=== PATIENT | male | born 1975 | race Asian ===

== ENCOUNTER 2021-04-22 10:57 | Emergency (ER) | payer OTHER, SELFPAY ==
[2021-04-22 11:34] VITALS: BP 119/88; PULSE 88; RESP 16; TEMP 36.9; O2SAT 98; BMI 26.6
--- NOTE | 2021-05-08 07:56 | ED.GENADULT ---
HPI - General Adult General Chief complaint: General Medical Stated complaint: rt ft injury, insect bite lt leg History of Present Illness HPI narrative: This patient left before being seen I never did any history of physical and did not see the patient Related Data Home Medications Medication Instructions Recorded Confirmed methadone 10 mg/mL oral 85 mg PO DAILY 05/02/21 05/02/21 concentrate (Methadone Intensol) Previous Rx's Medication Instructions Recorded amlodipine 5 mg tablet (Norvasc) 5 mg PO DAILY #30 tab 05/05/21 doxycycline hyclate 100 mg tablet 100 mg PO Q12H #20 tab 05/05/21 Allergies Allergy/AdvReac Type Severity Reaction Status Date / Time shellfish derived Allergy Unknown SWELLING Verified 05/01/21 15:19 [SHELLFISH DERIVED] PMFSH Past Medical History Medical History Depression Drug abuse OCD (obsessive compulsive disorder) Surgical History History of anterior cruciate ligament surgery Family History Family History Mother Drinking problem Other Mental health disorder Substance use disorder Social History Social History Household Members: None Housing: Other 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 Do you presently have visiting nurse or other home services: No Alcohol intake: never Patient Tobacco Use Status: Never used Tobacco e-Cigarette/Vaping Use: Never Used Second Hand Smoke Exposure: Yes Substance Use Type: Crack/Cocaine and Heroin service: No Current occupational status: employed Physical Exam Vital Signs: Vital Signs: Last Vital Signs Temp 98.5 F 04/22/21 11:34 Pulse 88 04/22/21 11:34 Resp 16 04/22/21 11:34 BP 119/88 04/22/21 11:34 Pulse Ox 98 04/22/21 11:34 Body Mass Index 26.6 Discharge Plan Discharge Patient Disposition: Left Without Being Seen Interventions: LWBS Worksheet Last Done: 04/22/21 13:06 Discharge Date/Time: 04/22/21 12:05
== END 2021-04-22 12:05 | disposition left against medical advice (07) ==
PROVIDERS: Emergency Provider Emergency Medicine; PCP Internal Medicine
DX: S99.921A Unspecified injury of right foot, initial encounter (principal); X58.XXXA Exposure to other specified factors, initial encounter; Y93.9 Activity, unspecified; Y92.9 Unspecified place or not applicable; Y99.9 Unspecified external cause status
CPT/HCPCS: 99281; 99283

== ENCOUNTER 2021-05-01 14:46 | Inpatient (IN) | payer OTHER, SELFPAY ==
--- NOTE | ~2021-05-01 | US_ITS ---
EXAMINATION: US VENOUS ULTRASOUND WITH DOPPLER LOWER EXTREMITY, BILATERAL CLINICAL INFORMATION: Leg pain COMPARISON: None TECHNIQUE: Ultrasound of the deep veins is performed from the hip to the calf with compression sonography and color and pulse Doppler assessment. Spectral analysis with color-flow imaging is performed. FINDINGS: RIGHT: There is normal venous compression and respiratory variation and augmented flow. The visualized common femoral vein, superficial femoral vein, profunda femoral vein, popliteal vein, and the trifurcation region shows no evidence of deep venous thrombosis. There is no significant popliteal fossa cyst. No popliteal artery aneurysm. LEFT: There is normal venous compression and respiratory variation and augmented flow. The visualized common femoral vein, superficial femoral vein, profunda femoral vein, popliteal vein, and the trifurcation region shows no evidence of deep venous thrombosis. There is no significant popliteal fossa cyst. No popliteal artery aneurysm. US/US venous duplex LE BI IMPRESSION: No acute DVT demonstrated in the bilateral lower extremities.
--- NOTE | ~2021-05-01 | XR_ITS ---
EXAMINATION: LEFT FOURTH DIGIT 3 VIEWS AND LEFT TIB-FIB 3 VIEWS CLINICAL INFORMATION: Pain. Trauma. COMPARISON: None TECHNIQUE: As above FINDINGS: Diffuse soft tissue swelling about the left fourth digit. No underlying soft tissue air or radiopaque foreign body. No bony lesions or dislocation. No deformity. No periosteal new bone formation. Diffuse echogenicity edema about the left tib-fib. No underlying bony lesion. Notable soft tissue swelling especially about the ankle. XR/XR finger LT min 2V IMPRESSION: No evidence for any radiopaque foreign body or osteomyelitis as above. Diffuse soft tissue swelling consistent with known infection.
--- NOTE | ~2021-05-01 | XR_ITS ---
EXAMINATION: LEFT FOURTH DIGIT 3 VIEWS AND LEFT TIB-FIB 3 VIEWS CLINICAL INFORMATION: Pain. Trauma. COMPARISON: None TECHNIQUE: As above FINDINGS: Diffuse soft tissue swelling about the left fourth digit. No underlying soft tissue air or radiopaque foreign body. No bony lesions or dislocation. No deformity. No periosteal new bone formation. Diffuse echogenicity edema about the left tib-fib. No underlying bony lesion. Notable soft tissue swelling especially about the ankle. XR/XR tibia fibula LT 2V IMPRESSION: No evidence for any radiopaque foreign body or osteomyelitis as above. Diffuse soft tissue swelling consistent with known infection.
--- NOTE | ~2021-05-01 | US_ITS ---
EXAMINATION: ULTRASOUND EVALUATION SOFT TISSUES OF THE LEFT MID AND UPPER HENNESSY CLINICAL INFORMATION: Left leg cellulitis COMPARISON: None TECHNIQUE: Targeted ultrasound examination left hennessy FINDINGS: There is edematous change seen within the subcutaneous tissue with prominent vascularity. No definite phlegmon or abscess is appreciated. US/US extremity nonvascular IMPRESSION: Edema and hypervascularity in area of wound without evidence of phlegmon or abscess.
[2021-05-01 15:20] VITALS: BP 133/75; PULSE 82; RESP 20; TEMP 37.4; O2SAT 98; BMI 26.6
--- NOTE | 2021-05-01 16:34 | ED.GENADULT ---
HPI - General Adult General Chief complaint: General Medical Stated complaint: inf finger & toe Time Seen by Provider: 05/01/21 16:34 Source: patient Mode of arrival: ambulatory Limitations: no limitations History of Present Illness HPI narrative: Patient came to the ER for 1 week of infection in left 3rd finger and left leg. Patient use IVDA not using it lately on methadone cyst that had a spider bite on the left leg and he was picking on it now for last 4 days has a wound on the left ring finger which is opened up and swollen no fever at home no chills patient has been vaccinated against COVID. Related Data Previous Rx's Medication Instructions Recorded sulfamethoxazole 800 1 tab PO Q12H 10 Days #20 tab 04/28/21 mg-trimethoprim 160 mg tablet (Bactrim DS) Allergies Allergy/AdvReac Type Severity Reaction Status Date / Time shellfish derived Allergy Unknown SWELLING Verified 05/01/21 15:19 [SHELLFISH DERIVED] Review of Systems Review of Systems: Yes all other systems are reviewed and are negative PMFSH Past Medical History Medical History Depression Drug abuse OCD (obsessive compulsive disorder) Surgical History History of anterior cruciate ligament surgery Family History Family History Mother Drinking problem Other Mental health disorder Substance use disorder Social History Social History Housing: House (with parents) Alcohol intake: never Patient Tobacco Use Status: Never used Tobacco e-Cigarette/Vaping Use: Never Used Second Hand Smoke Exposure: Yes Use of substances other than those prescribed or required for medical reasons: Yes Substance Use Type: Heroin and Opiates Advance Directives: No Advance Directives Information Provided: Yes service: No Current occupational status: employed Physical Exam Vital Signs: Vital Signs: Last Vital Signs Temp 101.5 F H 05/01/21 18:02 Pulse 78 05/01/21 18:02 Resp 16 05/01/21 18:02 BP 120/81 05/01/21 18:02 Pulse Ox 99 05/01/21 18:02 Body Mass Index 26.6 Appearance: Alert. Oriented X3. No acute distress. Eyes: PERRLA, No Nystagmus ENT: Pharynx normal. Oral Mucosa moist Neck: Normal inspection. Neck supple. CVS: Normal heart rate and rhythm. Pulses normal. Respiratory: No respiratory distress. Equal air entry bilateral, no wheezing/rales/rhonchi Abdomen: Soft and nontender. Bowel sounds are present, no mass palpable, Neuro: Oriented X 3. No motor deficit. No sensory deficit.No cerebellar signs , cranial nerves II-XII intact Extrem: Hand/finger images: 1. Left 3rd finger with swelling and deep ulcer was purulent base no palner tenderness no hyperesthesia neurovascular intact no signs of tenosynovitis Upper/lower leg/hip images: 1. Swelling erythema with black eschar no crepitus Medical Decision Making MDM Narrative Medical decision making narrative: Patient with infected wound left ring finger without any signs of tenosynovitis, also has infected wound with cellulitis left leg with the use of IV drugs. Will admit patient for cellulitis and infected wound IV antibiotic vancomycin Zosyn given Lab Data Lab results reviewed: Yes I reviewed the patient's lab results. Result diagrams: 05/01/21 17:17 05/01/21 17:36 Labs: Lab Results 05/01/21 05/01/21 05/01/21 Range/Units 17:17 17:17 17:30 WBC 8.8 (4.8-10.8) X10*3/uL RBC 4.68 (4.60-5.80) X10*6/uL Hgb 13.5 L (14.0-18.0) g/dl Hct 40.3 L (42-52) % MCV 86.1 (80-98) fL MCH 28.8 (27.0-33.0) pg MCHC 33.5 (31.0-36.0) g/dl RDW 12.6 (11.0-16.0) % Plt Count 321 (160-400) X10*3/uL MPV 9.4 (9.4-12.4) fL Immature Gran % (Auto) 0.2 (0.0-0.4) % Neut % (Auto) 78.7 H (45-73) % Lymph % (Auto) 9.9 L (20-40) % [place] % (Auto) 6.7 (2-11) % Eos % (Auto) 4.0 (0-4) % Baso % (Auto) 0.5 (0-2) % Lymph # (Auto) 0.9 L (1.2-4.9) X10*3/uL [place] # (Auto) 0.6 (0.1-1.2) X10*3/uL Eos # (Auto) 0.4 (0.0-0.4) X10*3/uL Baso # (Auto) 0.0 (0.0-0.2) X10*3/uL Abs Immat Gran (auto) 0.02 (0.00-0.03) X10*3/uL Absolute Neuts (auto) 7.0 (2.0-8.3) X10*3/uL Absolute Nucleated RBC 0.000 (0.0-0.012) X10*3/uL Nucleated RBC % (auto) 0.0 (0.0-0.2) /100WBC Sodium (135-145) mmol/L Potassium (3.3-5.1) mmol/L Chloride (96-108) mmol/L Carbon Dioxide (22-29) mmol/L Anion Gap (12-20) BUN (9-16) mg/dL Creatinine (0.5-1.4) mg/dL Estim Creat Clear Calc Estimated GFR Random Glucose (60-115) mg/dL Lactic Acid 1.5 (0.5-2.0) mmol/L Calcium (8.4-10.2) mg/dL Total Bilirubin (0.0-1.0) mg/dL Direct Bilirubin (0.0-0.5) mg/dL AST (5-37) U/L ALT (0-40) U/L Alkaline Phosphatase (39-117) U/L Total Protein (6.5-8.0) g/dL Albumin (3.5-5.0) g/dL Urine Color Urine Appearance Urine pH (5.0-8.0) Ur Specific [place] (1.005-1.025) Urine Protein (NEG-TRACE) MG/DL Urine Glucose (UA) (NEG) MG/DL Urine Ketones (NEG) MG/DL Urine Blood (NEG) Urine Nitrite (NEG) Ur Leukocyte Esterase (NEG) COVID-19 ([facility]) Negative (Negative) COVID-19 Clin Com See Note 05/01/21 05/01/21 Range/Units 17:36 19:59 WBC (4.8-10.8) X10*3/uL RBC (4.60-5.80) X10*6/uL Hgb (14.0-18.0) g/dl Hct (42-52) % MCV (80-98) fL MCH (27.0-33.0) pg MCHC (31.0-36.0) g/dl RDW (11.0-16.0) % Plt Count (160-400) X10*3/uL MPV (9.4-12.4) fL Immature Gran % (Auto) (0.0-0.4) % Neut % (Auto) (45-73) % Lymph % (Auto) (20-40) % [place] % (Auto) (2-11) % Eos % (Auto) (0-4) % Baso % (Auto) (0-2) % Lymph # (Auto) (1.2-4.9) X10*3/uL [place] # (Auto) (0.1-1.2) X10*3/uL Eos # (Auto) (0.0-0.4) X10*3/uL Baso # (Auto) (0.0-0.2) X10*3/uL Abs Immat Gran (auto) (0.00-0.03) X10*3/uL Absolute Neuts (auto) (2.0-8.3) X10*3/uL Absolute Nucleated RBC (0.0-0.012) X10*3/uL Nucleated RBC % (auto) (0.0-0.2) /100WBC Sodium 134 L (135-145) mmol/L Potassium 4.2 (3.3-5.1) mmol/L Chloride 103 (96-108) mmol/L Carbon Dioxide 24 (22-29) mmol/L Anion Gap 11 L (12-20) BUN 10 (9-16) mg/dL Creatinine 0.78 (0.5-1.4) mg/dL Estim Creat Clear Calc 118.3 Estimated GFR > 60 Random Glucose 83 (60-115) mg/dL Lactic Acid (0.5-2.0) mmol/L Calcium 8.3 L (8.4-10.2) mg/dL Total Bilirubin 0.6 (0.0-1.0) mg/dL Direct Bilirubin 0.3 (0.0-0.5) mg/dL AST 31 (5-37) U/L ALT 36 (0-40) U/L Alkaline Phosphatase 72 (39-117) U/L Total Protein 6.4 L (6.5-8.0) g/dL Albumin 3.6 (3.5-5.0) g/dL Urine Color YELLOW Urine Appearance CLEAR Urine pH 6.0 (5.0-8.0) Ur Specific [place] >= 1.030 H (1.005-1.025) Urine Protein TRACE (NEG-TRACE) MG/DL Urine Glucose (UA) NEG (NEG) MG/DL Urine Ketones NEG (NEG) MG/DL Urine Blood NEG (NEG) Urine Nitrite NEG (NEG) Ur Leukocyte Esterase NEG (NEG) COVID-19 ([facility]) (Negative) COVID-19 Clin Com Discharge Plan Discharge Clinical Impression: Cellulitis of left leg, Infected wound Patient Disposition: Admitted As Inpatient
[2021-05-01 17:23] LABS: MANUAL DIFF FLAG NO
[2021-05-01 17:33] LABS: Basophils Percent Auto 0.5 % (0-2); Eosinophils Absolute Auto 0.4 X10*3/uL (0.0-0.4); Hematocrit 40.3 % (42-52); Hemoglobin 13.5 g/dl (14.0-18.0); Imm Gran Abs Auto 0.02 X10*3/uL (0.00-0.03); Imm Gran Pct Auto 0.2 % (0.0-0.4); Lymphocytes Absolute Auto 0.9 X10*3/uL (1.2-4.9); Lymphocytes Percent Auto 9.9 % (20-40); Mean Corpuscular HGB Conc 33.5 g/dl (31.0-36.0); Mean Corpuscular Hemoglobin 28.8 pg (27.0-33.0); Mean Corpuscular Volume 86.1 fL (80-98); Mean Platelet Volume 9.4 fL (9.4-12.4); Monocytes Absolute Auto 0.6 X10*3/uL (0.1-1.2); Monocytes Percent Auto 6.7 % (2-11); Neutrophils Percent Auto 78.7 % (45-73); Platelet Count 321 X10*3/uL (160-400); Red Blood Count 4.68 X10*6/uL (4.60-5.80); Red Cell Distribution Width 12.6 % (11.0-16.0); White Blood Count 8.8 X10*3/uL (4.8-10.8)
[2021-05-01] MEDS: Piperacillin Sodium/Tazobactam 3.375 GM in 0.9 % Sodium Chloride 50 ML IV (17:41)
[2021-05-01] MEDS: 0.9 % Sodium Chloride 1,000 ML 999 ML IVCONT (17:41)
[2021-05-01 17:48] LABS: Lactic Acid 1.5 mmol/L (0.5-2.0)
[2021-05-01 17:50] LABS: COVID-19 Test Negative (Negative)
[2021-05-01] MEDS: vancomycin HCL 1,500 MG in 0.9 % Sodium Chloride 500 ML 333.33 MG IV (17:58)
[2021-05-01] MEDS: Acetaminophen 325 MG TABLET 650 MG PO (17:58)
[2021-05-01 18:02] VITALS: BP 120/81; PULSE 78; RESP 16; TEMP 38.6; O2SAT 99
[2021-05-01 18:33] LABS: Alkaline Phosphatase 72 U/L (39-117)
[2021-05-01 18:58] LABS: Alanine Aminotransferase 36 U/L (0-40); Albumin Level 3.6 g/dL (3.5-5.0); Anion Gap 11 (12-20); Aspartate Amino Transferase 31 U/L (5-37); Bilirubin Direct 0.3 mg/dL (0.0-0.5); Bilirubin Total 0.6 mg/dL (0.0-1.0); Blood Urea Nitrogen 10 mg/dL (9-16); Calcium 8.3 mg/dL (8.4-10.2); Carbon Dioxide 24 mmol/L (22-29); Chloride 103 mmol/L (96-108); Creatinine Clr Calc Pharmacy 118.3; Estimated Glomerular Filt Rate > 60; Glucose Random 83 mg/dL (60-115); Potassium 4.2 mmol/L (3.3-5.1); Sodium 134 mmol/L (135-145); Total Protein 6.4 g/dL (6.5-8.0)
[2021-05-01 20:06] LABS: Glucose Urine UA NEG (NEG); Leukocyte Esterase Urine NEG (NEG); Nitrite Urine NEG (NEG); Specific Gravity - Urine >= 1.030 (1.005-1.025); Urine Blood NEG (NEG); Urine Ketones NEG (NEG); Urine Protein TRACE MG/DL (NEG-TRACE)
[2021-05-01 20:10] LABS: Appearance Urine CLEAR; Color Urine YELLOW
[2021-05-01 21:00] VITALS: TEMP 36.8
--- NOTE | 2021-05-01 21:56 | P.HPHOSP_ITS ---
History of Present Illness Date of Service: 05/01/21 Chief Complaint: left leg pain 45-year-old male with a past medical history of IV drug abuse, anxiety presented to the hospital with a chief complaint of left 3rd finger pain redness and swelling as well as leg pain redness and swelling over the past few days. Denies any chest pain palpitations lightheadedness or dizziness. Denies any numbness tingling. Denies any cough or sputum production. Denies any urinary symptoms. Patient reports that he use IV heroin; did not remember using it in the like or the finger; reports question bug bite. Denies any numbness tingling or focal weakness. Review of all other systems is negative except mentioned above ER course: Per ER team patient noted to have left 3rd finger and left leg cellulitis; given IV vancomycin and Zosyn; less concern for tenosynovitis. Admitted for further management. [facility] Medical History Depression Drug abuse OCD (obsessive compulsive disorder) Family History Mother Drinking problem Other Mental health disorder Substance use disorder Surgical History History of anterior cruciate ligament surgery Social History Housing: House (with parents) Alcohol intake: never Patient Tobacco Use Status: Never used Tobacco e-Cigarette/Vaping Use: Never Used Second Hand Smoke Exposure: Yes Use of substances other than those prescribed or required for medical reasons: Yes Substance Use Type: Heroin and Opiates Advance Directives: No Advance Directives Information Provided: Yes service: No Current occupational status: employed Meds Allergies Allergy/AdvReac Type Severity Reaction Status Date / Time shellfish derived Allergy Unknown SWELLING Verified 05/01/21 15:19 [SHELLFISH DERIVED] Active Medications: Current Medications Generic Name Dose Route Start Last Admin Trade Name Freq PRN Reason Stop Dose Admin Clonidine HCl 0.1 mg 05/01/21 21:53 Clonidine Hcl 0.1 Mg Tablet PO BID PRN anxiety/restlessness Protocol Vancomycin HCl 1,000 mg/ 270 mls @ 270 mls/hr 05/01/21 22:00 Sodium Chloride IV Q12H [facility] Pharmacy Consult 1 each 05/01/21 16:49 Consult Rx Vancomycin Dosing MISCELLANE DAILY PRN Consult order Pharmacy Consult 1 each 05/01/21 21:52 Consult Rx Vancomycin Dosing MISCELLANE DAILY PRN Consult order Physical Exam Vital Signs and Narrative: Vital Signs: Last Vital Signs Temp 101.5 F H 05/01/21 18:02 Pulse 78 05/01/21 18:02 Resp 16 05/01/21 18:02 BP 120/81 05/01/21 18:02 Pulse Ox 99 05/01/21 18:02 Body Mass Index 26.6 Gen: Appears be in no acute distress HEENT: NCAT, Moist mucosa. Pulmonary: Vesicular breath sounds, fair air entry CVS: Normal S1-S2 Abdomen: BS+, Soft, Nontender Extremities: Warm well perfused; left hand her finger is warm tender and erythematous. Left leg medial side is warm tender is erythematous. No for from sent. Neuro: Alert and awake. Results Labs CBC and Chem 7: 05/01/21 17:17 05/01/21 17:36 Labs: Laboratory Results - last 24 hr 05/01/21 05/01/21 05/01/21 17:17 17:17 17:30 MCV 86.1 MCH 28.8 MCHC 33.5 RDW 12.6 Plt Count 321 MPV 9.4 Immature Gran % (Auto) 0.2 Neut % (Auto) 78.7 H Lymph % (Auto) 9.9 L [place] % (Auto) 6.7 Eos % (Auto) 4.0 Baso % (Auto) 0.5 Lymph # (Auto) 0.9 L [place] # (Auto) 0.6 Eos # (Auto) 0.4 Baso # (Auto) 0.0 Abs Immat Gran (auto) 0.02 Absolute Neuts (auto) 7.0 Absolute Nucleated RBC 0.000 Nucleated RBC % (auto) 0.0 Anion Gap Estim Creat Clear Calc Estimated GFR Random Glucose Lactic Acid 1.5 Calcium Total Bilirubin Direct Bilirubin AST ALT Alkaline Phosphatase Total Protein Albumin Urine Color Urine Appearance Urine pH Ur Specific [place] Urine Protein Urine Glucose (UA) Urine Ketones Urine Blood Urine Nitrite Ur Leukocyte Esterase COVID-19 ([facility]) Negative COVID-19 Clin Com See Note 05/01/21 05/01/21 17:36 19:59 MCV MCH MCHC RDW Plt Count MPV Immature Gran % (Auto) Neut % (Auto) Lymph % (Auto) [place] % (Auto) Eos % (Auto) Baso % (Auto) Lymph # (Auto) [place] # (Auto) Eos # (Auto) Baso # (Auto) Abs Immat Gran (auto) Absolute Neuts (auto) Absolute Nucleated RBC Nucleated RBC % (auto) Anion Gap 11 L Estim Creat Clear Calc 118.3 Estimated GFR > 60 Random Glucose 83 Lactic Acid Calcium 8.3 L Total Bilirubin 0.6 Direct Bilirubin 0.3 AST 31 ALT 36 Alkaline Phosphatase 72 Total Protein 6.4 L Albumin 3.6 Urine Color YELLOW Urine Appearance CLEAR Urine pH 6.0 Ur Specific [place] >= 1.030 H Urine Protein TRACE Urine Glucose (UA) NEG Urine Ketones NEG Urine Blood NEG Urine Nitrite NEG Ur Leukocyte Esterase NEG COVID-19 ([facility]) COVID-19 Clin Com Imaging Radiologist's Impressions: Impressions Finger X-Ray 05/01/21 16:50 IMPRESSION: No evidence for any radiopaque foreign body or osteomyelitis as above. Diffuse soft tissue swelling consistent with known infection. Tibia/Fibula X-Ray 05/01/21 16:50 IMPRESSION: No evidence for any radiopaque foreign body or osteomyelitis as above. Diffuse soft tissue swelling consistent with known infection. Assessment and Plan (1) Left leg swelling: Status: Acute 45-year-old male with a past medical history of IV drug abuse, anxiety, depression, OCD presented to the hospital with a chief complaint of left 3rd finger and left leg pain redness and swelling; concern for cellulitis. Admitted for further management. Left leg cellulitis/left hand 3rd finger cellulitis: Continue IV vancomycin. Id consult. Hand surgery. Ultrasound to rule out any blood clots as well as the abscess. Pain control History of opiate abuse: Addiction Medicine consult. COWS protocol. Clonidine p.r.n.. DVT prophylaxis: Subcu heparin Code status: Full code Quality Stroke Does the patient have a stroke diagnosis?: No VTE Prior VTE?: No VTE Risk Level:: Medical - moderate - high VTE Device Contraindication: Treatment Not Indicated VTE Drug Contraindication: N/A - Med Ordered
--- NOTE | 2021-05-01 22:59 | MHC.CM.PN ---
CM met with admitted patient, with bed pending. Pt lives in a 5th wheel on his mother's property. 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 Pt uses IV heroin; last used 04/30/21. Pt takes 85 mg of methadone daily. [employer] on [address]. Pt has NOT been vaccinated and does not wish to be vaccinated. HCP reviewed, completed and signed per protocol. Copies given. Uploaded into [employer] and [facility]. D/C plan is home without services. To continue methadone. Transportation home by family. CM to follow for d/c plans.
[2021-05-02] VITALS (10 sets, daily range): BP systolic 110–143; BP diastolic 57–70; PULSE 60–82; RESP 16–18; TEMP 36.3–37.5; O2SAT 94–99
--- NOTE | 2021-05-02 00:44 | PC.NURSE ---
per pt- 85 mg methadone Q day, receives from [facility]
[2021-05-02] MEDS: Dextrose 5 % and 0.45 % NaCl 1,000 ML 100 ML IVCONT ×2 (01:14→11:38)
[2021-05-02] MEDS: oxyCODONE HCl Immed Release 5 MG TABLET PO ×2 (01:14→08:07)
[2021-05-02] MEDS: Melatonin 3 MG TABLET 6 MG PO (01:14)
[2021-05-02] MEDS: cloNIDine HCL 0.1 MG TABLET PO (01:14)
[2021-05-02] MEDS: Heparin Sodium,Porcine 5,000 UNIT/ML VIAL 5000 UNIT SUBCUT ×2 (01:14→15:54)
[2021-05-02] MEDS: Acetaminophen 325 MG TABLET 650 MG PO (01:15)
[2021-05-02] MEDS: 0.9 % Sodium Chloride Flush 3 ML SYRINGE IVFLUSH (01:22)
[2021-05-02] MEDS: vancomycin HCL 1,250 MG in 0.9 % Sodium Chloride 250 ML 166.67 MG IV ×2 (05:36→17:15)
[2021-05-02 06:38] LABS: MANUAL DIFF FLAG NO
[2021-05-02 07:07] LABS: Basophils Percent Auto 0.5 % (0-2); Eosinophils Absolute Auto 0.4 X10*3/uL (0.0-0.4); Eosinophils Percent Auto 6.9 % (0-4); Hematocrit 33.6 % (42-52); Hemoglobin 11.3 g/dl (14.0-18.0); Imm Gran Abs Auto 0.02 X10*3/uL (0.00-0.03); Imm Gran Pct Auto 0.3 % (0.0-0.4); Lymphocytes Absolute Auto 1.2 X10*3/uL (1.2-4.9); Mean Corpuscular HGB Conc 33.6 g/dl (31.0-36.0); Mean Corpuscular Volume 86.4 fL (80-98); Mean Platelet Volume 9.7 fL (9.4-12.4); Monocytes Absolute Auto 0.6 X10*3/uL (0.1-1.2); Monocytes Percent Auto 9.8 % (2-11); Neutrophils Absolute Auto 3.9 X10*3/uL (2.0-8.3); Neutrophils Percent Auto 62.5 % (45-73); Platelet Count 244 X10*3/uL (160-400); Red Blood Count 3.89 X10*6/uL (4.60-5.80); Red Cell Distribution Width 12.7 % (11.0-16.0); White Blood Count 6.2 X10*3/uL (4.8-10.8)
[2021-05-02 08:25] LABS: Anion Gap 11 (12-20); Blood Urea Nitrogen 11 mg/dL (9-16); Calcium 8.1 mg/dL (8.4-10.2); Carbon Dioxide 25 mmol/L (22-29); Chloride 106 mmol/L (96-108); Creatinine Clr Calc Pharmacy 113.9; Estimated Glomerular Filt Rate > 60; Glucose Random 111 mg/dL (60-115); Potassium 3.9 mmol/L (3.3-5.1); Sodium 138 mmol/L (135-145)
--- NOTE | 2021-05-02 09:22 | PM.EVENT ---
Event Note Date of Service: 05/02/21 Event Note: 45 yo male with left ring finger wound the finger has some redness and swelling over the PIP with deroofed skinwith pus. recommend warm water soaks tid followed by dry dressing changes- will continue to follow
--- NOTE | 2021-05-02 09:23 | PM.CNOR ---
History of Present Illness HPI Consult date: 05/02/21 Chief complaint: Cellulitis Narrative: 45-year-old male with a past medical history of IV drug abuse, anxiety presented to the hospital with a chief complaint of left 3rd finger pain redness and swelling as well as leg pain redness and swelling over the past few days.? He denies injecting into these areas recently. States he thought he had a bug bite or a scratch that became irritated so he started picking at it. He has a tendency to pick at scabs and wounds. He was admitted to the medical service and started on iv abx and orthopedics was consulted for further recommendations . Review of Systems Review of Systems: Yes all other systems are reviewed and are negative PMFSH Past Medical History Medical History Depression Drug abuse OCD (obsessive compulsive disorder) Family History Family History Mother Drinking problem Other Mental health disorder Substance use disorder Surgical History Surgical History History of anterior cruciate ligament surgery Social History Social History Household Members: None Housing: Other 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 Do you presently have visiting nurse or other home services: No Alcohol intake: never Patient Tobacco Use Status: Never used Tobacco e-Cigarette/Vaping Use: Never Used Second Hand Smoke Exposure: Yes Use of substances other than those prescribed or required for medical reasons: Yes Substance Use Type: Crack/Cocaine and Heroin Substance Use Frequency: Weekly Last Used Substance: Days (ago) Last Used Substance Other:: cocaine Currently Displaying Signs/Symptoms of Drug Intoxication Withdrawal: No Have you been hit, kicked, punched, or otherwise hurt by someone within the past year? If so, by whom?: No Do you feel safe in your current relationship?: No Current Relationship Is there a partner from a previous relationship who is making you feel unsafe now?: No Are you made to feel afraid or neglected: No Advance Directives: No Advance Directives Information Provided: Yes Do you have thoughts of harming others: None Do you have a plan to hurt others: No Plan Recently lost weight without trying: No How much weight loss: Not applicable Eating poorly because of decreased appetite: Yes Nutrition screen score: 1 Nutrition Risks: No Nutritional Risk Poor oral hygiene: No service: No Current occupational status: employed Meds Allergies Allergy/AdvReac Type Severity Reaction Status Date / Time shellfish derived Allergy Unknown SWELLING Verified 05/01/21 15:19 [SHELLFISH DERIVED] Active Medications: Current Medications Generic Name Dose Route Start Last Admin Trade Name Freq PRN Reason Stop Dose Admin Acetaminophen 650 mg 05/01/21 21:55 05/02/21 01:15 Acetaminophen 325 Mg Tablet PO 650 mg Q6H PRN Administration Pain, Mild (Pain Scale 1-3) Clonidine HCl 0.1 mg 05/01/21 21:53 05/02/21 01:14 Clonidine Hcl 0.1 Mg Tablet PO 0.1 mg BID PRN Administration anxiety/restlessness Protocol Heparin Sodium (Porcine) 5,000 unit 05/02/21 09:00 Heparin Sodium,Porcine 5,000 Unit/Ml Vial SUBCUT Q8H JULIO Dextrose/Sodium Chloride 1,000 mls @ 100 mls/hr 05/01/21 22:00 05/02/21 07:53 D51/2ns IVCONT Not Given .Q10H JULIO Vancomycin HCl 1,250 mg/ 250 mls @ 166.667 mls/hr 05/02/21 06:00 05/02/21 07:06 Sodium Chloride IV Infused Q12H JULIO Infusion Melatonin 6 mg 05/01/21 21:55 05/02/21 01:14 Melatonin 3 Mg Tablet PO 6 mg BEDTIME PRN Administration Insomnia Oxycodone HCl 5 mg 05/01/21 21:55 05/02/21 08:07 Oxycodone Hcl Immed Release 5 Mg Tablet PO 5 mg Q6H PRN Administration Pain, Severe (Pain Scale 7-10) Pharmacy Consult 1 each 05/01/21 16:49 Consult Rx Vancomycin Dosing MISCELLANE DAILY PRN Consult order Pharmacy Consult 1 each 05/01/21 21:52 Consult Rx Vancomycin Dosing MISCELLANE DAILY PRN Consult order Sodium Chloride 3 ml 05/02/21 00:00 05/02/21 07:49 0.9 % Sodium Chloride Flush 3 Ml Syringe IVFLUSH Not Given QSHIFT [facility] Home Medications Medication Instructions Recorded Confirmed Last Taken Type methadone 10 mg/mL oral 85 mg PO DAILY 05/02/21 05/02/21 Unknown History concentrate (Methadone Intensol) Physical Exam Vital Signs: Vital Signs: Last Vital Signs Temp 98.4 F 05/02/21 07:32 Pulse 60 05/02/21 07:32 Resp 16 05/02/21 07:32 BP 110/59 L 05/02/21 07:32 Pulse Ox 98 05/02/21 07:32 Body Mass Index 26.6 Const: General: cooperative and no acute distress Orientation/consciousness: patient oriented x3 Resp: Effort & Inspection: normal respiratory effort and able to speak in complete sentences Cardio: Peripheral pulses: Peripheral pulses 2+ throughout Neuro: General: patient oriented x3 Extrem: Other: left ring finger open abscess with fibrotic tissue . No active drainage or purulance. minimal surrounding erythema with tenderness over the PIP Left lower ext redness with fluctulance. calf supple. Results Labs Result Diagrams: 05/03/21 04:39 05/03/21 04:39 Labs: Abnormal lab results 05/01/21 05/01/21 05/01/21 Range/Units 17:17 17:36 19:59 RBC (4.60-5.80) X10*6/uL Hgb 13.5 L (14.0-18.0) g/dl Hct 40.3 L (42-52) % Neut % (Auto) 78.7 H (45-73) % Lymph % (Auto) 9.9 L (20-40) % Eos % (Auto) (0-4) % Lymph # (Auto) 0.9 L (1.2-4.9) X10*3/uL Sodium 134 L (135-145) mmol/L Anion Gap 11 L (12-20) Calcium 8.3 L (8.4-10.2) mg/dL Total Protein 6.4 L (6.5-8.0) g/dL Ur Specific [place] >= 1.030 H (1.005-1.025) 05/02/21 05/02/21 Range/Units 06:21 06:21 RBC 3.89 L (4.60-5.80) X10*6/uL Hgb 11.3 L (14.0-18.0) g/dl Hct 33.6 L (42-52) % Neut % (Auto) (45-73) % Lymph % (Auto) (20-40) % Eos % (Auto) 6.9 H (0-4) % Lymph # (Auto) (1.2-4.9) X10*3/uL Sodium (135-145) mmol/L Anion Gap 11 L (12-20) Calcium 8.1 L (8.4-10.2) mg/dL Total Protein (6.5-8.0) g/dL Ur Specific [place] (1.005-1.025) H & H 05/01/21 05/02/21 Range/Units 17:17 06:21 Hgb 13.5 L 11.3 L (14.0-18.0) g/dl Hct 40.3 L 33.6 L (42-52) % All other labs normal. Assessment and Plan (1) Cellulitis of left leg: Status: Acute (2) Abscess of finger: Status: Acute 1.Left leg cellulitis and abscless, /left hand 3rd finger cellulitis:? -left finger warm water soaks tid -left leg warm compress -re-eval in 24 hours. Procedures Date of Service Date of Service: 05/02/21
--- NOTE | 2021-05-02 10:43 | MHC.RECOVRN ---
T/w spoke with pts RN, Marlin, who reports methadone dose has been verified and faxed to pharmacy. Diana Arredondo APRN, aware.
--- NOTE | 2021-05-02 12:22 | MHC.CLN ---
NUTRITION CONSULT NUTRITION CONSULT DUE TO CELLULITIS. PATIENT WITH CELLULITIS OF LEFT LEG AND LEFT HAND FINGER. NO PRESSURE AREAS. DIET=REGULAR. NO ADDITIONAL NUTRITION INTERVENTIONS.
--- NOTE | 2021-05-02 12:30 | HO.PM.IMPN ---
Subjective Subjective Date of Service: 05/02/21 Interval History: Leg cellulitis, and for left hand cellulitis. Review of Systems Patient is still having lot of pain in the leg and the and area, Also has erythema and swelling Physical Exam Vital Signs: Vital Signs: Last Vital Signs Temp 97.3 F 05/02/21 11:18 Pulse 61 05/02/21 11:18 Resp 16 05/02/21 11:18 BP 127/60 05/02/21 11:18 Pulse Ox 97 05/02/21 11:18 Body Mass Index 26.6 physical exam: Gen: no acute distress HEENT:? NCAT,? Moist mucosa. Pulmonary:? Vesicular breath sounds, fair air entry CVS:? Normal S1-S2 Abdomen: BS+, Soft, Nontender Extremities:? Warm well perfused; left hand her finger is warm tender and erythematous.? Left leg medial side is warm tender is erythematous.?no gross flacutation Neuro:? Alert and awake. Objective Data Active Medications Acetaminophen (Acetaminophen 325 Mg Tablet) 650 mg PO Q6H PRN PRN Reason: Pain, Mild (Pain Scale 1-3) Last Admin: 05/02/21 01:15 Dose: 650 mg Documented by: FERNANDA Clonidine HCl (Clonidine Hcl 0.1 Mg Tablet) 0.1 mg PO BID PRN; Protocol PRN Reason: anxiety/restlessness Last Admin: 05/02/21 01:14 Dose: 0.1 mg Documented by: FERNANDA Heparin Sodium (Porcine) (Heparin Sodium,Porcine 5,000 Unit/Ml Vial) 5,000 unit SUBCUT Q8H [facility] Last Admin: 05/02/21 11:12 Dose: Not Given Documented by: NEVAEH Non-Admin Reason: See Note Comments: possible procedure today Dextrose/Sodium Chloride (D51/2ns) 1,000 mls @ 100 mls/hr IVCONT .Q10H [facility] Last Admin: 05/02/21 11:38 Dose: 100 mls/hr Documented by: NEVAEH Vancomycin HCl 1,250 mg/ (Sodium Chloride) 250 mls @ 166.667 mls/hr IV Q12H [facility] Last Infusion: 05/02/21 07:06 Dose: 0 mls/hr Documented by: NEVAEH Melatonin (Melatonin 3 Mg Tablet) 6 mg PO BEDTIME PRN PRN Reason: Insomnia Last Admin: 05/02/21 01:14 Dose: 6 mg Documented by: FERNANDA Methadone HCl (Methadone Hcl 20 Mg/2 Ml Oral.Conc) 85 mg PO DAILY [facility] Oxycodone HCl (Oxycodone Hcl Immed Release 5 Mg Tablet) 5 mg PO Q6H PRN PRN Reason: Pain, Severe (Pain Scale 7-10) Last Admin: 05/02/21 08:07 Dose: 5 mg Documented by: NEVAEH Pharmacy Consult (Consult Rx Vancomycin Dosing) 1 each MISCELLANE DAILY PRN PRN Reason: Consult order Pharmacy Consult (Consult Rx Vancomycin Dosing) 1 each MISCELLANE DAILY PRN PRN Reason: Consult order Sodium Chloride (0.9 % Sodium Chloride Flush 3 Ml Syringe) 3 ml IVFLUSH QSHIFT [facility] Last Admin: 05/02/21 07:49 Dose: Not Given Documented by: NEVAEH Non-Admin Reason: IV Running Labs CBC & Chem 7: 05/02/21 06:21 05/02/21 06:21 Labs: Laboratory Results - last 24 hr 05/01/21 05/01/21 05/01/21 17:17 17:17 17:30 MCV 86.1 MCH 28.8 MCHC 33.5 RDW 12.6 Plt Count 321 MPV 9.4 Immature Gran % (Auto) 0.2 Neut % (Auto) 78.7 H Lymph % (Auto) 9.9 L [place] % (Auto) 6.7 Eos % (Auto) 4.0 Baso % (Auto) 0.5 Lymph # (Auto) 0.9 L [place] # (Auto) 0.6 Eos # (Auto) 0.4 Baso # (Auto) 0.0 Abs Immat Gran (auto) 0.02 Absolute Neuts (auto) 7.0 Absolute Nucleated RBC 0.000 Nucleated RBC % (auto) 0.0 Anion Gap Estim Creat Clear Calc Estimated GFR Random Glucose Lactic Acid 1.5 Calcium Magnesium Total Bilirubin Direct Bilirubin AST ALT Alkaline Phosphatase Total Protein Albumin Urine Color Urine Appearance Urine pH Ur Specific [place] Urine Protein Urine Glucose (UA) Urine Ketones Urine Blood Urine Nitrite Ur Leukocyte Esterase COVID-19 ([facility]) Negative COVID-19 Clin Com See Note 05/01/21 05/01/21 05/02/21 17:36 19:59 06:21 MCV 86.4 MCH 29.0 MCHC 33.6 RDW 12.7 Plt Count 244 MPV 9.7 Immature Gran % (Auto) 0.3 Neut % (Auto) 62.5 Lymph % (Auto) 20.0 [place] % (Auto) 9.8 Eos % (Auto) 6.9 H Baso % (Auto) 0.5 Lymph # (Auto) 1.2 [place] # (Auto) 0.6 Eos # (Auto) 0.4 Baso # (Auto) 0.0 Abs Immat Gran (auto) 0.02 Absolute Neuts (auto) 3.9 Absolute Nucleated RBC 0.000 Nucleated RBC % (auto) 0.0 Anion Gap 11 L Estim Creat Clear Calc 118.3 Estimated GFR > 60 Random Glucose 83 Lactic Acid Calcium 8.3 L Magnesium Total Bilirubin 0.6 Direct Bilirubin 0.3 AST 31 ALT 36 Alkaline Phosphatase 72 Total Protein 6.4 L Albumin 3.6 Urine Color YELLOW Urine Appearance CLEAR Urine pH 6.0 Ur Specific [place] >= 1.030 H Urine Protein TRACE Urine Glucose (UA) NEG Urine Ketones NEG Urine Blood NEG Urine Nitrite NEG Ur Leukocyte Esterase NEG COVID-19 ([facility]) COVID-19 Clin Com 05/02/21 06:21 MCV MCH MCHC RDW Plt Count MPV Immature Gran % (Auto) Neut % (Auto) Lymph % (Auto) [place] % (Auto) Eos % (Auto) Baso % (Auto) Lymph # (Auto) [place] # (Auto) Eos # (Auto) Baso # (Auto) Abs Immat Gran (auto) Absolute Neuts (auto) Absolute Nucleated RBC Nucleated RBC % (auto) Anion Gap 11 L Estim Creat Clear Calc 113.9 Estimated GFR > 60 Random Glucose 111 Lactic Acid Calcium 8.1 L Magnesium 2.0 Total Bilirubin Direct Bilirubin AST ALT Alkaline Phosphatase Total Protein Albumin Urine Color Urine Appearance Urine pH Ur Specific [place] Urine Protein Urine Glucose (UA) Urine Ketones Urine Blood Urine Nitrite Ur Leukocyte Esterase COVID-19 ([facility]) COVID-19 Clin Com Assessment and Plan (1) Cellulitis of left leg: Status: Acute Assessment and Plan: 45-year-old male with a past medical history of IV drug abuse, anxiety, depression, OCD presented to the hospital with a chief complaint of left 3rd finger and left leg pain redness and swelling; concern for cellulitis.? Admitted for further management. 1.Left leg cellulitis/left hand 3rd finger cellulitis:? Continue IV vancomycin.? Id consult and Hand surgery. Ultrasound to rule out any blood clots as well as the abscess. Pain control 2.History of opiate abuse:? Addiction Medicine consult.? COWS protocol.? Clonidine p.r.n.. added methadone back DVT prophylaxis:? Subcu heparin Quality Stroke Does the patient have a stroke diagnosis?: No VTE Prior VTE?: No VTE Risk Level:: Medical - moderate - high VTE Device Contraindication: Treatment Not Indicated VTE Drug Contraindication: N/A - Med Ordered
[2021-05-02] MEDS: methADONE HCl 20 MG/2 ML ORAL.CONC 85 MG PO (13:30)
--- NOTE | 2021-05-02 22:25 | P.CNID_ITS ---
History of Present Illness Data of Consult Service Date: 05/02/21 Requesting physician: Megan Mello Primary Care Provider: MD TIFFANY Colin Reason for consult: cellulitis He presents to hospital with left third finger erythema as well as left leg erythema and swelling. He has no fever or chills. 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 Do you presently have visiting nurse or other home services: No Alcohol intake: never Patient Tobacco Use Status: Never used Tobacco e-Cigarette/Vaping Use: Never Used Second Hand Smoke Exposure: Yes Substance Use Type: Crack/Cocaine and Heroin service: No Current occupational status: employed Meds Allergies Allergy/AdvReac Type Severity Reaction Status Date / Time shellfish derived Allergy Unknown SWELLING Verified 05/01/21 15:19 [SHELLFISH DERIVED] Active Medications: Current Medications Generic Name Dose Route Start Last Admin Trade Name Rudiq PRN Reason Stop Dose Admin Acetaminophen 650 mg 05/01/21 21:55 05/02/21 01:15 Acetaminophen 325 Mg Tablet PO 650 mg Q6H PRN Administration Pain, Mild (Pain Scale 1-3) Clonidine HCl 0.1 mg 05/01/21 21:53 05/02/21 01:14 Clonidine Hcl 0.1 Mg Tablet PO 0.1 mg BID PRN Administration anxiety/restlessness Protocol Heparin Sodium (Porcine) 5,000 unit 05/02/21 09:00 05/02/21 15:54 Heparin Sodium,Porcine 5,000 Unit/Ml Vial SUBCUT 5,000 unit Q8H [facility] Administration Dextrose/Sodium Chloride 1,000 mls @ 100 mls/hr 05/01/21 22:00 05/02/21 17:14 D51/2ns IVCONT Not Given .Q10H [facility] Vancomycin HCl 1,250 mg/ 250 mls @ 166.667 mls/hr 05/02/21 06:00 05/02/21 19:48 Sodium Chloride IV Infused Q12H [facility] Infusion Melatonin 6 mg 05/01/21 21:55 05/02/21 01:14 Melatonin 3 Mg Tablet PO 6 mg BEDTIME PRN Administration Insomnia Methadone HCl 85 mg 05/02/21 12:00 05/02/21 13:30 Methadone Hcl 20 Mg/2 Ml Oral.Conc PO 85 mg DAILY [facility] Administration Oxycodone HCl 5 mg 05/01/21 21:55 05/02/21 08:07 Oxycodone Hcl Immed Release 5 Mg Tablet PO 5 mg Q6H PRN Administration Pain, Severe (Pain Scale 7-10) Pharmacy Consult 1 each 05/01/21 16:49 Consult Rx Vancomycin Dosing MISCELLANE DAILY PRN Consult order Pharmacy Consult 1 each 05/01/21 21:52 Consult Rx Vancomycin Dosing MISCELLANE DAILY PRN Consult order Sodium Chloride 3 ml 05/02/21 00:00 05/02/21 15:50 0.9 % Sodium Chloride Flush 3 Ml Syringe IVFLUSH Not Given QSHIFT [facility] Home Medications Medication Instructions Recorded Confirmed Last Taken Type methadone 10 mg/mL oral 85 mg PO DAILY 05/02/21 05/02/21 Unknown History concentrate (Methadone Intensol) Physical Exam Vital Signs: Vital Signs: Last Vital Signs Temp 99.5 F 05/02/21 19:17 Pulse 82 05/02/21 19:17 Resp 18 05/02/21 19:17 BP 143/67 H 05/02/21 19:17 Pulse Ox 99 05/02/21 19:17 Body Mass Index 26.6 Const: General: cooperative HENMT: Head: Yes normal to inspection Mouth: Normal oral and palatal mucosa present Eyes: General: appearance normal, both eyes and all related structures Resp: Effort & Inspection: normal respiratory effort Cardio: Rate: regular rate Rhythm: regular rhythm GI: Palpation (GI): Soft to palpation and nontender Skin: General skin exam: no rashes or lesions noted Extrem: Other: left third finger erythema left lower leg erythema Results Labs CBC & Chem 7: 05/03/21 04:39 05/03/21 04:39 Labs: Short CBC 05/02/21 Range/Units 06:21 WBC 6.2 (4.8-10.8) X10*3/uL Hgb 11.3 L (14.0-18.0) g/dl Hct 33.6 L (42-52) % Plt Count 244 (160-400) X10*3/uL BMP 05/02/21 06:21 Sodium 138 Potassium 3.9 Chloride 106 Carbon Dioxide 25 BUN 11 Creatinine 0.81 Calcium 8.1 L Microbiology Microbiology Results: Microbiology 05/01/21 17:30 Blood - Venous Blood Culture - Preliminary No growth after 24 hours. 05/01/21 17:17 Blood - Venous Blood Culture - Preliminary No growth after 24 hours. Assessment and Plan (1) Cellulitis of left leg: Status: Acute He has possible MRSA Finger looks improved Leg looks slightly better he says (2) Infected wound: Status: Acute Vancomycin as above Await cultures Possible po Doxycycline as outpatient
[2021-05-03] VITALS (10 sets, daily range): BP systolic 123–151; BP diastolic 63–85; PULSE 59–77; RESP 15–18; TEMP 36.3–37.2; O2SAT 96–98
[2021-05-03] MEDS: Dextrose 5 % and 0.45 % NaCl 1,000 ML 100 ML IVCONT ×2 (01:18→13:09)
[2021-05-03] MEDS: Heparin Sodium,Porcine 5,000 UNIT/ML VIAL 5000 UNIT SUBCUT ×3 (01:19→16:48)
[2021-05-03 04:55] LABS: Hematocrit 35.7 % (42-52); Hemoglobin 11.7 g/dl (14.0-18.0); Mean Corpuscular HGB Conc 32.8 g/dl (31.0-36.0); Mean Corpuscular Hemoglobin 28.5 pg (27.0-33.0); Mean Corpuscular Volume 87.1 fL (80-98); Mean Platelet Volume 9.2 fL (9.4-12.4); Platelet Count 241 X10*3/uL (160-400); Red Cell Distribution Width 12.4 % (11.0-16.0)
[2021-05-03 05:11] LABS: Anion Gap 13 (12-20); Blood Urea Nitrogen 10 mg/dL (9-16); Calcium 8.3 mg/dL (8.4-10.2); Carbon Dioxide 24 mmol/L (22-29); Chloride 105 mmol/L (96-108); Creatinine Clr Calc Pharmacy 124.7; Estimated Glomerular Filt Rate > 60; Glucose Random 101 mg/dL (60-115); Potassium 4.1 mmol/L (3.3-5.1); Sodium 138 mmol/L (135-145)
[2021-05-03 05:16] LABS: Vancomycin Trough 8.7 mcg/mL (10.0-20.0)
[2021-05-03] MEDS: vancomycin HCL 1,500 MG in 0.9 % Sodium Chloride 500 ML 333.33 MG IV (06:43)
[2021-05-03] MEDS: methADONE HCl 20 MG/2 ML ORAL.CONC 85 MG PO (09:56)
--- NOTE | 2021-05-03 10:51 | PM.EVENT ---
Event Note Date of Service: 05/03/21 Event Note: Left ring finger with redness and pain over the PIP joint -patient removed the fibrous tissue -I packed with wet to dry dressing -dr garcía to do a bed side I&D later today.
[2021-05-03] MEDS: Lidocaine HCl 2% PF/Epi 1:200 20 ML VIAL SUBCUT (13:10)
--- NOTE | 2021-05-03 17:59 | P.PNIM_ITS ---
Subjective Subjective Date of Service: 05/03/21 Interval History: f/u on cellulitis of the leg, puss draining from the leg Review of Systems Gen: no fever Resp: no sob, no cough CV: no chest, no SIMPSON, no leg edema GI: No n/v, no abd pain Neuro: No confusion pain in leg and finger Physical Exam Vital Signs: Vital Signs: Last Vital Signs Temp 97.6 F 05/03/21 15:20 Pulse 63 05/03/21 15:20 Resp 15 05/03/21 15:20 BP 151/82 H 05/03/21 15:20 Pulse Ox 98 05/03/21 15:20 Body Mass Index 26.6 General: AO X 3, no acute distress Resp: CTA bilateral CVS: S1,S2,RRR GI: +BS, NT, no distention Skin: Neuro: motor grossly intact Psych: appropriate affect Objective Data Active Medications Acetaminophen (Acetaminophen 325 Mg Tablet) 650 mg PO Q6H PRN PRN Reason: Pain, Mild (Pain Scale 1-3) Last Admin: 05/02/21 01:15 Dose: 650 mg Documented by: FERNANDA Clonidine HCl (Clonidine Hcl 0.1 Mg Tablet) 0.1 mg PO BID PRN; Protocol PRN Reason: anxiety/restlessness Last Admin: 05/02/21 01:14 Dose: 0.1 mg Documented by: FERNANDA Heparin Sodium (Porcine) (Heparin Sodium,Porcine 5,000 Unit/Ml Vial) 5,000 unit SUBCUT Q8H [facility] Last Admin: 05/03/21 16:48 Dose: 5,000 unit Documented by: YANA Dextrose/Sodium Chloride (D51/2ns) 1,000 mls @ 100 mls/hr IVCONT .Q10H [facility] Last Admin: 05/03/21 13:09 Dose: 100 mls/hr Documented by: YANA Vancomycin HCl 1,500 mg/ (Sodium Chloride) 500 mls @ 333.333 mls/hr IV Q12H [facility] Last Infusion: 05/03/21 08:47 Dose: 0 mls/hr Documented by: YANA Melatonin (Melatonin 3 Mg Tablet) 6 mg PO BEDTIME PRN PRN Reason: Insomnia Last Admin: 05/02/21 01:14 Dose: 6 mg Documented by: FERNANDA Methadone HCl (Methadone Hcl 20 Mg/2 Ml Oral.Conc) 85 mg PO DAILY [facility] Last Admin: 05/03/21 09:56 Dose: 85 mg Documented by: YANA Oxycodone HCl (Oxycodone Hcl Immed Release 5 Mg Tablet) 5 mg PO Q6H PRN PRN Reason: Pain, Severe (Pain Scale 7-10) Last Admin: 05/02/21 08:07 Dose: 5 mg Documented by: NEVAEH Pharmacy Consult (Consult Rx Vancomycin Dosing) 1 each MISCELLANE DAILY PRN PRN Reason: Consult order Pharmacy Consult (Consult Rx Vancomycin Dosing) 1 each MISCELLANE DAILY PRN PRN Reason: Consult order Sodium Chloride (0.9 % Sodium Chloride Flush 3 Ml Syringe) 3 ml IVFLUSH QSHIFT [facility] Last Admin: 05/03/21 16:03 Dose: Not Given Documented by: YANA Non-Admin Reason: No Access Labs CBC & Chem 7: 05/03/21 04:39 05/03/21 04:39 Labs: Laboratory Results - last 24 hr 05/03/21 05/03/21 05/03/21 04:39 04:39 04:39 MCV 87.1 MCH 28.5 MCHC 32.8 RDW 12.4 Plt Count 241 MPV 9.2 L Absolute Nucleated RBC 0.000 Nucleated RBC % (auto) 0.0 Anion Gap 13 Estim Creat Clear Calc 124.7 Estimated GFR > 60 Random Glucose 101 Calcium 8.3 L Vancomycin Trough 8.7 L Microbiology Microbiology Results: Microbiology 05/01/21 17:30 Blood Culture - Preliminary Blood - Venous No growth after 24 hours. 05/01/21 17:17 Blood Culture - Preliminary Blood - Venous No growth after 24 hours. Assessment and Plan (1) Cellulitis of left leg: Status: Acute Assessment and Plan: 45-year-old male with a past medical history of IV drug abuse, anxiety, depression, OCD presented to the hospital with a chief complaint of left 3rd finger and left leg pain redness and swelling; concern for cellulitis.? Admitted for further management. 1.Left leg cellulitis and abscless, /left hand 3rd finger cellulitis:? -culture negative -on vanco but just lost IV access, -Hold Vanco tonight -Add Doxycyline PO -Ortho recommendation for finger cellulitis/abscess: recommend warm water soaks tid followed by dry dressing changes- will continue to follow -surgery consult for possible i and d of leg 2.History of opiate abuse:? Addiction Medicine consult.? COWS protocol.? Clonidine p.r.n.. added methadone back DVT prophylaxis:? Subcu heparin Quality Stroke Does the patient have a stroke diagnosis?: No VTE Prior VTE?: No VTE Risk Level:: Medical - moderate - high VTE Device Contraindication: Treatment Not Indicated VTE Drug Contraindication: N/A - Med Ordered
--- NOTE | 2021-05-03 18:32 | PC.NURSE ---
Pt IV R foot infiltrated. Multiple attempts made to gain IV access, but unsuccessful. Dr. Martinez made aware. Antibiotics changed to PO, fluids D/c'd. Oncoming shift aware, will continue to try to get IV access.
[2021-05-04] VITALS (9 sets, daily range): BP systolic 132–160; BP diastolic 71–96; PULSE 53–65; RESP 15–18; TEMP 36.1–36.8; O2SAT 94–98
[2021-05-04] MEDS: Heparin Sodium,Porcine 5,000 UNIT/ML VIAL 5000 UNIT SUBCUT ×3 (01:29→18:01)
[2021-05-04] MEDS: methADONE HCl 20 MG/2 ML ORAL.CONC 85 MG PO (08:47)
--- NOTE | 2021-05-04 11:26 | P.DS_ITS ---
DS: Providers Provider Date of Service: 05/04/21 Date of admission: 05/01/21 21:55 Primary care physician: Maria Del Rosario Rodriguez MD Consults: 05/01/21 21:52 Consult to Orthopedics Routine Consulting Provider: Maxime Mckoy Reason for consultation: hand cellulitis; ?tenosinuvitis 05/01/21 21:53 Addiction Medicine Routine Consulting Provider: Diana Arredondo Reason for consultation: opiate abuse Consult to Infectious Diseases Routine Consulting Provider: Elva Herrera Reason for consultation: cellulitis; ?spider bite 05/02/21 07:50 Consult to Orthopedics Routine Consulting Provider: Deana Tucker Reason for consultation: lefft hand cellulitis/ivdu Has provider been notified: No 05/03/21 11:40 Consult to General Surgery Routine Consulting Provider: Bran Paz Reason for consultation: leg abscess DS: Diagnosis Discharge Diagnosis (1) Cellulitis of left leg: Status: Acute (2) Cellulitis of finger: Status: Acute DS: Summary Hospital Course Hospital Course: Chief Complaint: left leg pain 45-year-old male with a past medical history of IV drug abuse, anxiety presented to the hospital with a chief complaint of left 3rd finger pain redness and swelling as well as leg pain redness and swelling over the past few days.? Denies any chest pain palpitations lightheadedness or dizziness.? Denies any numbness tingling.? Denies any cough or sputum production. Denies any urinary symptoms. Patient reports that he use IV heroin; did not remember using it in the like or the finger; reports question bug bite. Denies any numbness tingling or focal weakness. Review of all other systems is negative except mentioned above ER course: Per ER team patient noted to have left 3rd finger and left leg cellulitis; given IV vancomycin and Zosyn; less concern for tenosynovitis.? Admitted for further management. Hospital coruse: patient was admitted and treated with IV Vanco and later changed to oral Doxycyline, had I and D done by Ortho, wound is looking pretty clean at this time and will discharge with oral Doxycyline and follow up with PCP a week, also to follow up with Ortho HTN--blood pressure reading have been high and starting on Norvasc 5 mg daily and to follow up with PCP for further adjustement Final diagnosis: Cellulitis of the finger Cellulitis the leg Time Spent with Patient Time attestation: Total time spent providing and/or coordinating discharge services: Discharge coordination time: Greater than 30 minutes Quality: Stroke Does the patient have a stroke diagnosis?: No Physical Exam Vital Signs: Vital Signs: Selected Entries 05/05/21 07:23 Temperature 98.7 F Pulse Rate 59 Respiratory Rate 16 Blood Pressure 173/93 H Pulse Oximetry 99 Oxygen Delivery Me thod Room Air Body Mass Index 26.6 Const General:?cooperative, healthy appearing and no acute distress Resp Effort & Inspection:?normal respiratory effort and able to speak in complete sentences Cardio Rate:?regular rate Peripheral pulses:?Peripheral pulses 2+ throughout GI Palpation (GI):?Soft to palpation Skin General skin exam:?no rashes or lesions noted Extrem Other:?left ring finger open abscess with clean borders . No purulance. minimal surrounding erythema. left lower ext wound with mil surrounding erythema, no fluctulance. DS: Data Data Completed and Pending Labs on day of discharge: Preliminary micro results at discharge 05/01/21 17:30 Blood Culture - Preliminary Blood - Venous No growth after 48 hours. 05/01/21 17:17 Blood Culture - Preliminary Blood - Venous No growth after 48 hours. Discharge Plan Discharge Anticipated Discharge Date/Time: 05/05/21 09:24 Patient Disposition: Home, Self-Care Discharge Diagnosis: Cellulitis of finger and leg Referrals: Maria Del Rosario Rodriguez MD [Primary Care Provider] - 1 Week Discharge Medications: New doxycycline hyclate 100 mg Tablet 100 mg PO Q12H Qty: 20 RF: 0 amlodipine [Norvasc] 5 mg tablet 5 mg PO DAILY Qty: 30 RF: 0 Continued methadone [Methadone Intensol] 10 mg/mL Concentrate 85 mg PO DAILY RF: 0 Discontinued sulfamethoxazole-trimethoprim [Bactrim DS] 800-160 mg tablet 1 tab PO Q12H 10 Days Qty: 20 RF: 0 Discharge Orders: Discharge Order (Routine); Ordered 05/05/21 Ordered By: Francois Martinez Diet: advance to usual diet Activity on Discharge: As tolerated Stand Alone Forms: Patient Portal Discharge page Care Plan Goals: Full recovery from infection Health Concerns: Cellulitis of finger and leg Plan of Treatment: Take Doxycyline as recommended and follow up with Dr. Louis and your primary care doctor in one to 2 weeks Local wound dressing change (you are able to do it yourself) Take Norvasc for high blood pressure and follow up with your Doctor for medicat ion adjustment Assessment: As above
[2021-05-04] MEDS: oxyCODONE HCl Immed Release 5 MG TABLET PO (11:44)
--- NOTE | 2021-05-04 14:31 | HO.PM.IMPN ---
Subjective Subjective Date of Service: 05/04/21 Interval History: f/u on cellulitis of the leg, s/p I and D of leg wound, fing wound yesterday Review of Systems no fever pain is mangeable Physical Exam Vital Signs: Vital Signs: Last Vital Signs Temp 96.9 F 05/04/21 11:19 Pulse 65 05/04/21 11:19 Resp 18 05/04/21 11:19 BP 154/96 H 05/04/21 11:19 Pulse Ox 94 05/04/21 11:19 Body Mass Index 26.6 General: AO X 3, no acute distress Resp: CTA bilateral CVS: S1,S2,RRR GI: +BS, NT, no distention Skin: No rash, leg wound, finger wound dressing in place Neuro: motor grossly intact Psych: appropriate affect Objective Data Active Medications Acetaminophen (Acetaminophen 325 Mg Tablet) 650 mg PO Q6H PRN PRN Reason: Pain, Mild (Pain Scale 1-3) Last Admin: 05/02/21 01:15 Dose: 650 mg Documented by: FERNANDA Clonidine HCl (Clonidine Hcl 0.1 Mg Tablet) 0.1 mg PO BID PRN; Protocol PRN Reason: anxiety/restlessness Last Admin: 05/02/21 01:14 Dose: 0.1 mg Documented by: FERNANDA Doxycycline Hyclate (Doxycycline Hyclate 100 Mg Tablet) 100 mg PO Q12H [facility] Last Admin: 05/04/21 06:48 Dose: 100 mg Documented by: LACY Heparin Sodium (Porcine) (Heparin Sodium,Porcine 5,000 Unit/Ml Vial) 5,000 unit SUBCUT Q8H [facility] Last Admin: 05/04/21 08:47 Dose: 5,000 unit Documented by: NEVAEH Melatonin (Melatonin 3 Mg Tablet) 6 mg PO BEDTIME PRN PRN Reason: Insomnia Last Admin: 05/02/21 01:14 Dose: 6 mg Documented by: FERNANDA Methadone HCl (Methadone Hcl 20 Mg/2 Ml Oral.Conc) 85 mg PO DAILY [facility] Last Admin: 05/04/21 08:47 Dose: 85 mg Documented by: NEVAEH Oxycodone HCl (Oxycodone Hcl Immed Release 5 Mg Tablet) 5 mg PO Q6H PRN PRN Reason: Pain, Severe (Pain Scale 7-10) Last Admin: 05/04/21 11:44 Dose: 5 mg Documented by: NEVAEH Pharmacy Consult (Consult Rx Vancomycin Dosing) 1 each MISCELLANE DAILY PRN PRN Reason: Consult order Pharmacy Consult (Consult Rx Vancomycin Dosing) 1 each MISCELLANE DAILY PRN PRN Reason: Consult order Sodium Chloride (0.9 % Sodium Chloride Flush 3 Ml Syringe) 3 ml IVFLUSH QSHIFT [facility] Last Admin: 05/04/21 08:46 Dose: Not Given Documented by: NEVAEH Non-Admin Reason: No Access Labs CBC & Chem 7: 05/03/21 04:39 05/03/21 04:39 Microbiology Microbiology Results: Microbiology 05/01/21 17:30 Blood Culture - Preliminary Blood - Venous No growth after 48 hours. 05/01/21 17:17 Blood Culture - Preliminary Blood - Venous No growth after 48 hours. Assessment and Plan (1) Cellulitis of left leg: Status: Acute Assessment and Plan: 45-year-old male with a past medical history of IV drug abuse, anxiety, depression, OCD presented to the hospital with a chief complaint of left 3rd finger and left leg pain redness and swelling; concern for cellulitis.? Admitted for further management. 1.Left leg cellulitis and abscless, /left hand 3rd finger cellulitis:? -culture negative -Continue oral Doxycyline PO -Ortho recommendation for finger cellulitis/abscess: recommend warm water soaks tid followed by dry dressing changes- will continue to follow awaiting ortho for dressing change then discharge 2.History of opiate abuse:? Addiction Medicine consult.? COWS protocol.? Clonidine p.r.n.. added methadone back DVT prophylaxis:? Subcu heparin Quality Stroke Does the patient have a stroke diagnosis?: No VTE Prior VTE?: No VTE Risk Level:: Medical - moderate - high VTE Device Contraindication: Treatment Not Indicated VTE Drug Contraindication: N/A - Med Ordered
--- NOTE | 2021-05-04 15:26 | PM.PNORT ---
Subjective Subjective Date of Service: 05/04/21 Interval history: left ring finger abscess left lower ext abscess s/p i&d bedside with dr wilkins states his pain is improving Physical Exam Vital Signs: Vital Signs: Last Vital Signs Temp 97.4 F 05/04/21 15:16 Pulse 54 05/04/21 15:16 Resp 16 05/04/21 15:16 BP 136/71 05/04/21 15:16 Pulse Ox 96 05/04/21 15:16 Body Mass Index 26.6 Const: General: cooperative, healthy appearing and no acute distress Resp: Effort & Inspection: normal respiratory effort and able to speak in complete sentences Cardio: Rate: regular rate Peripheral pulses: Peripheral pulses 2+ throughout GI: Palpation (GI): Soft to palpation Skin: General skin exam: no rashes or lesions noted Extrem: Other: left ring finger open abscess with clean borders . No purulance. minimal surrounding erythema. left lower ext- packing removed. surrounding erythema, no fluctulance. Procedures Date of Service Date of Service: 05/04/21 Progress Note: A&P Assessment and plan (1) Cellulitis of left leg: Status: Acute Assessment and Plan: cont pain mgmnt cont iv abx wet to dry dressing on left finger bid packing in left leg-keep intact. (2) Infected wound: Status: Acute Fall Risk Details Current Medications: Current Medications Generic Name Dose Route Start Last Admin Trade Name Freq PRN Reason Stop Dose Admin Acetaminophen 650 mg 05/01/21 21:55 05/02/21 01:15 Acetaminophen 325 Mg Tablet PO 650 mg Q6H PRN Administration Pain, Mild (Pain Scale 1-3) Clonidine HCl 0.1 mg 05/01/21 21:53 05/02/21 01:14 Clonidine Hcl 0.1 Mg Tablet PO 0.1 mg BID PRN Administration anxiety/restlessness Protocol Doxycycline Hyclate 100 mg 05/03/21 19:00 05/04/21 06:48 Doxycycline Hyclate 100 Mg Tablet PO 100 mg Q12H JULIO Administration Heparin Sodium (Porcine) 5,000 unit 05/02/21 09:00 05/04/21 08:47 Heparin Sodium,Porcine 5,000 Unit/Ml Vial SUBCUT 5,000 unit Q8H JULIO Administration Melatonin 6 mg 05/01/21 21:55 05/02/21 01:14 Melatonin 3 Mg Tablet PO 6 mg BEDTIME PRN Administration Insomnia Methadone HCl 85 mg 05/02/21 12:00 05/04/21 08:47 Methadone Hcl 20 Mg/2 Ml Oral.Conc PO 85 mg DAILY JULIO Administration Oxycodone HCl 5 mg 05/01/21 21:55 05/04/21 11:44 Oxycodone Hcl Immed Release 5 Mg Tablet PO 5 mg Q6H PRN Administration Pain, Severe (Pain Scale 7-10) Pharmacy Consult 1 each 05/01/21 16:49 Consult Rx Vancomycin Dosing MISCELLANE DAILY PRN Consult order Pharmacy Consult 1 each 05/01/21 21:52 Consult Rx Vancomycin Dosing MISCELLANE DAILY PRN Consult order Sodium Chloride 3 ml 05/02/21 00:00 05/04/21 08:46 0.9 % Sodium Chloride Flush 3 Ml Syringe IVFLUSH Not Given QSHIFT JULIO Time Spent With Patient Time: Total time spent is greater than 50% in coordination of care (as documented) at patient's floor/unit and/or counseling patient: Time with patient: less than 15 minutes Quality Stroke Does the patient have a stroke diagnosis?: No VTE Prior VTE?: No VTE Risk Level:: Medical - moderate - high VTE Device Contraindication: Treatment Not Indicated VTE Drug Contraindication: N/A - Med Ordered
[2021-05-05] MEDS: Heparin Sodium,Porcine 5,000 UNIT/ML VIAL 5000 UNIT SUBCUT ×2 (00:02→07:13)
[2021-05-05 04:00] VITALS: BP 157/89; PULSE 57; RESP 18; TEMP 36.2; O2SAT 98
[2021-05-05] MEDS: oxyCODONE HCl Immed Release 5 MG TABLET PO (07:12)
[2021-05-05] MEDS: methADONE HCl 20 MG/2 ML ORAL.CONC 85 MG PO (07:13)
[2021-05-05 07:23] VITALS: BP 173/93; PULSE 59; RESP 16; TEMP 37.1; O2SAT 99
[2021-05-05 07:43] VITALS: PULSE 68
[2021-05-05] MEDS: amLODIPine Besylate 5 MG TABLET PO (10:25)
--- NOTE | 2021-05-05 10:37 | MHC.CM.PN ---
PATIENT IS DISCHARGED HOME - SELF CARE. HE HAS SECURED HIS OWN TRANSPORT. RN AWARE
--- NOTE | 2021-05-16 12:48 | P.BOP_ITS ---
Brief Operative Note Date of Service: 05/03/21 Pre-op diagnosis: left ring finger abcess, dorsal Post-op diagnosis: same Procedure: left ring finger I&D Surgeon: Micky Louis MD Anesthesia: local Was an Rn Interventional used for this Procedure?: No Estimated blood loss (mL): 5 Pathology: none sent Condition: stable Disposition: no change
--- NOTE | 2021-05-16 12:48 | P.OP_ITS ---
Operative Note Operative Note Date of Service: 05/03/21 Narrative: Pre-op diagnosis: left ring finger abcess, dorsal Post-op diagnosis: same Procedure: left ring finger I&D Surgeon: Micky Louis MD Anesthesia: local Was an Conditioning Room Worker used for this Procedure?: No Estimated blood loss (mL): 5 Pathology: none sent Condition: stable Disposition: no change Procedure in detail: The patient's left ring finger was prepped and draped in standard sterile fashion and a time-out was called to identify proper site procedure proper surgeon. I began by injecting approximately 10 mL of 0.25% Marcaine about the dorsum of the left ring finger. Once he was appropriately anesthetized a viri incision was made over the dorsal ulnar aspect of the ring finger. I used a sterile Q-tip and expressed approximately 2-3 mL of purulence material. I took the finger through full range of motion and was convinced that this was extra-articular. There was no involvement of the joint. I then irrigated copiously with sterile saline and then packed quarter-inch Nu gauze into the wound and dressed the finger with sterile dressing. Patient tolerated the procedure well and there were no known complications.
--- NOTE | 2021-05-16 12:49 | P.BOP_ITS ---
Brief Operative Note Date of Service: 05/03/21 Pre-op diagnosis: left tibia abcess Post-op diagnosis: same Procedure: left tibia I&D Surgeon: Micky Louis MD Anesthesia: local Was an Underwater Hunter Trapper used for this Procedure?: No Estimated blood loss (mL): 5 Pathology: none sent Condition: stable Disposition: PACU
--- NOTE | 2021-05-16 12:52 | W.PM.OPN ---
Operative Note Operative Note Date of Service: 05/03/21 Narrative: Pre-op diagnosis: left tibia abcess Post-op diagnosis: same Procedure: left tibia I&D Surgeon: Micky Louis MD Anesthesia: local Was an Style Advisor used for this Procedure?: No Estimated blood loss (mL): 5 Pathology: none sent Condition: stable Disposition: PACU Procedure in detail: A time-out was called to identify proper site proper procedure proper surgeon and I began by injecting approximately 10 mL of cord% Marcaine about the left tibial abscess. This was located about 10 cm distal to the joint and over the anterior tibia. Once the area was properly anesthetized I made a viri incision with 15 blade and then placed a sterile Q-tip into the wound and expressed approximately 5 mL of purulence material. This had some tunneling under the skin and this was abraded completely with a Q-tip and then irrigated copiously with sterile saline. I then packed a new gauze into the wound and dressed the wound with sterile dressings. The patient tolerated the procedure well there were no known complications.
== END 2021-05-05 10:45 | disposition home or self-care (01) | DRG 383 ==
LOC: HO.ED 22:28 → HO.EDOVER 23:24 → HO.S3 23:34
PROVIDERS: Internal Medicine; Admitting Provider Hospitalist; Emergency Provider Internal Medicine; PCP Internal Medicine; Visit Provider Internal Medicine
DX: L02.512 Cutaneous abscess of left hand (principal); F11.20 Opioid dependence, uncomplicated; L03.116 Cellulitis of left lower limb; I10 Essential (primary) hypertension; L03.012 Cellulitis of left finger; Z20.822 Contact with and (suspected) exposure to COVID-19; Z79.899 Other long term (current) drug therapy; L02.416 Cutaneous abscess of left lower limb
CPT/HCPCS: 36415; 73140; 73590; 76882; 80048; 80076; 80202; 81003; 83605; 83735; 85025; 85027; 87040; 87635; 93970; 96361; 96365; 96375; 99285; J2543; J3370

== ENCOUNTER 2021-11-26 09:45 | Outpatient (REF) | payer OTHER, SELFPAY ==
[2021-11-26 10:42] LABS: Hematocrit 47.2 % (42.0-52.0); Hemoglobin 16.3 g/dl (14.0-18.0); Mean Corpuscular HGB Conc 34.5 g/dl (31.0-36.0); Mean Corpuscular Hemoglobin 29.9 pg (27.0-33.0); Mean Corpuscular Volume 86.6 fL (80.0-98.0); Mean Platelet Volume 10.6 fL (9.4-12.4); Platelet Count 243 X10*3/uL (160-400); Red Blood Count 5.45 X10*6/uL (4.60-5.80); Red Cell Distribution Width 12.5 % (11.0-16.0); White Blood Count 6.6 X10*3/uL (4.8-10.8)
[2021-11-26 11:23] LABS: Erythrocyte Sedimentation Rate 3 MM/HR (0-15)
[2021-11-26 11:35] LABS: Alanine Aminotransferase 82 U/L (0-40); Albumin Level 4.4 g/dL (3.5-5.0); Alkaline Phosphatase 106 U/L (39-117); Anion Gap 13 (12-20); Aspartate Amino Transferase 34 U/L (5-37); Bilirubin Direct 0.3 mg/dL (0.0-0.5); Bilirubin Total 0.7 mg/dL (0.0-1.0); Blood Urea Nitrogen 17 mg/dL (9-16); C Reactive Protein 0.22 mg/dL (< or = 0.50); Calcium 9.6 mg/dL (8.4-10.2); Carbon Dioxide 24 mmol/L (22-29); Chloride 106 mmol/L (96-108); Estimated Glomerular Filt Rate > 60; Glucose Fasting 107 mg/dL (60-99); Potassium 4.1 mmol/L (3.3-5.1); Sodium 139 mmol/L (135-145); Total Protein 7.6 g/dL (6.5-8.0)
[2021-11-26 11:39] LABS: HIV AB/AG Nonreactive (Nonreactive); HIV Num 1 0.07 S/CO (0.00-0.99)
[2021-11-26 11:40] LABS: ~HepC Num1 15.09 S/CO (0.00-0.79); ~Hepatitis C Antibody Reactive (Nonreactive)
[2021-11-28 11:46] LABS: HCV Log PCR 5.62 Log IU/mL (NOT DETECTED); HepC Viral Load 419000 IU/mL (NOT DETECTED)
== END 2021-11-26 09:46 | disposition home or self-care (01) ==
LOC: HO.LAB 09:45
PROVIDERS: Nurse Practitioner Family; PCP Internal Medicine; Visit Provider Nurse Practitioner Family
DX: Z11.4 Encounter for screening for human immunodeficiency virus [HIV] (principal); Z13.0 Encounter for screening for diseases of the blood and blood-forming organs and certain disorders involving the immune mechanism; I10 Essential (primary) hypertension; E78.00 Pure hypercholesterolemia, unspecified; M79.89 Other specified soft tissue disorders
CPT/HCPCS: 36415; 80053; 80076; 82248; 85027; 85652; 86140; 86803; 87389; 87522

== ENCOUNTER 2021-12-04 12:32 | Emergency (ER) | payer OTHER, SELFPAY ==
--- NOTE | ~2021-12-04 | XR_ITS ---
EXAMINATION: XR CHEST CLINICAL INFORMATION: Shortness of breath, rule out pneumonia. COMPARISON: None TECHNIQUE: 2 views of the chest were obtained. FINDINGS: No significant abnormality is noted involving the heart, lungs, mediastinum, bony thorax or soft tissues. XR/XR chest 2V IMPRESSION: No acute cardiopulmonary process.
--- NOTE | ~2021-12-04 | CT_ITS ---
CT HEAD WITHOUT CONTRAST CLINICAL INFORMATION: Head injury. Loss of consciousness. Rule out fracture. COMPARISON: Head CT 06/17/2019. TECHNIQUE: Contiguous axial imaging was performed from the skull base to vertex without intravenous administration of contrast. This CT examination was performed using dose optimization techniques as appropriate, variously including the following: *Automated exposure control *Adjustment of mA and/or kV according to patient size (this includes techniques or standardized protocols for targeted exams where dose is matched to indication/reason for exam; i.e. extremities or head) *Use of iterative reconstruction technique FINDINGS: There is no intracranial hemorrhage, hydrocephalus, extra-axial surface collection, midline shift, or other herniation pattern. [place] to white matter differentiation is diffusely maintained without evidence of an evolved acute territorial infarct. The basilar cisterns are preserved. No significant soft tissue abnormality. No acute osseous abnormality. The paranasal sinuses and the mastoid air cells are well aerated. CT/CT head/brain wo con IMPRESSION: No acute intracranial abnormality.
[2021-12-04 12:40] VITALS: BP 126/93; BP 157/124; PULSE 101; PULSE 97; RESP 16; TEMP 36.1; O2SAT 51; O2SAT 98; BMI 28.8
--- NOTE | 2021-12-04 12:49 | ECG_ITS ---
Test Reason : syncope Blood Pressure : / mmHG Vent. Rate : 097 BPM Atrial Rate : 097 BPM P-R Int : 142 ms QRS Dur : 090 ms QT Int : 350 ms P-R-T Axes : 058 065 022 degrees QTc Int : 444 ms Normal sinus rhythm Nonspecific T wave abnormality Abnormal ECG When compared with ECG of 16-AUG-2018 18:35, Vent. rate has increased BY 37 BPM Referred By: Dennis Galo Electronically Signed By:ABHIJIT ANDREWS MD
--- NOTE | 2021-12-04 12:56 | ED_ITS ---
HPI - Syncope General Chief Complaint: Syncope Stated Complaint: UNRESPONSIVE,? OD,4MG NARCAN W/GOOD RESULT PER EMS Time Seen by Provider: 12/04/21 12:41 Source: patient and EMS Mode of arrival: EMS Limitations: no limitations History of Present Illness HPI narrative: 46-year-old male who presents emergency department for evaluation of his syncopal episode. The patient states that he went into the bathroom and had a bowel movement. He then does not recall what happened. The patient was found unresponsive on the floor by his parents. First responders found the patient to be unresponsive, apneic, O2 saturation was 51% on room air. He was given intranasal Narcan 4 mg and his respirations were assisted with a bag-valve mask. Approximately 4-5 minutes after receiving intranasal Narcan the patient did wak e up. The patient states that he also passed out 1 week prior but cannot give me the details of how this occurred. He does not remember what he was doing prior to passing out. The patient states over the past 2 days he has felt short of breath. He states that he needs to take deep breaths in and now. The shortness of breath occurs at rest but is not worse with exertion. He denied fever, rhinorrhea, sore throat, cough, chest pain, nausea, vomiting, diarrhea, abdominal pain, black tarry stools or bloody stools. He denied myalgias or arthralgias. States he does have occasional chills. The patient does have a history of depression and anxiety. He was started on bupropion 4 months prior. He was started on trazodone 1 week prior. He states that he has been having difficulty sleeping he has been very restless at night. He states he was unable to sleep last night. He has not been vaccinated for COVID-19. He has not had a COVID-19 infection. Related Data Home Medications Medication Instructions Recorded Confirmed bupropion HCl 150 mg tablet,12 hr 150 mg PO DAILY tab 11/25/21 11/25/21 sustained-release (Wellbutrin SR) Previous Rx's Medication Instructions Recorded bupropion HCl 75 mg tablet 75 mg PO .qhs #30 tab 11/25/21 lisinopril 10 mg tablet 10 mg PO DAILY #30 tab 11/25/21 trazodone 50 mg tablet 50 mg PO BEDTIME #30 tab 11/25/21 Allergies Allergy/AdvReac Type Severity Reaction Status Date / Time shellfish derived Allergy Unknown SWELLING Verified 12/02/21 13:14 [SHELLFISH DERIVED] Review of Systems Review of Systems: Yes all other systems are reviewed and are negative [facility] Past Medical History [facility] Narrative: Past medical history: Hypertension, depression, anxiety, hepatitis-C, opiate addiction, obsessive-compulsive disorder. Past surgical history: ACL repair. Social history: He denies tobacco, alcohol and drug use. Medical History Depression Drug abuse OCD (obsessive compulsive disorder) Surgical History History of anterior cruciate ligament surgery Family History Family History Mother Drinking problem Other Mental health disorder Substance use disorder Social History Social History Household Members: None Housing: Other 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 Do you presently have visiting nurse or other home services: No Alcohol intake: never Patient Tobacco Use Status: Never used Tobacco e-Cigarette/Vaping Use: Never Used Second Hand Smoke Exposure: Yes Substance Use Type: Crack/Cocaine and Heroin Advance Directives: No Advance Directives Information Provided: No service: No Current occupational status: unemployed Current occupational exposures/hazards: No Cognitive needs: No Hearing needs: No Vision needs: No Physical Exam Vital Signs: Vital Signs: Last Vital Signs Temp 98.8 F 12/04/21 15:16 Pulse 93 12/04/21 15:16 Resp 16 12/04/21 15:16 BP 109/70 12/04/21 15:16 Pulse Ox 96 12/04/21 15:16 BMI result Body Mass Index 28.8 Const: Other: Awake, alert, male patient, he does not appear to be in distress, he is pleasant cooperative. HEENT: Other: Head: Normocephalic. He does have a superficial abrasion to his forehead, there is no ecchymosis or hematoma in this area, this area is tender to palpation. Ears: external ears normal General nose exam: Normal external nose present Face and sinus: Yes normal facial exam Mouth: Normal oral and palatal mucosa present Throat: Yes posterior oropharynx normal Eyes: General: appearance normal, both eyes and all related structures Pupils: Equal, round and reactive pupils present Neck: Neck: Yes normal visual inspection, Yes no lymphadenopathy, Yes trachea midline and Yes supple Chest: Chest palpation & inspection: normal inspection of the chest and normal palpation of entire chest wall Resp: Effort & Inspection: normal respiratory effort and able to speak in complete sentences Auscultation: clear to auscultation bilaterally Cardio: Rate: regular rate Rhythm: regular rhythm Heart sounds: S1 normal heart sound present, S2 normal heart sound present and no murmurs GI: Inspection: Yes normal to inspection Palpation (GI): Soft to palpation, nontender and no guarding Auscultation: normal bowel sounds : General: Yes no CVA tenderness Back/Spine/Pelvis: Back: no CVA tenderness Skin: General skin exam: no rashes or lesions noted Neuro: Cranial nerves: Yes CN's II-XII intact bilaterally and Yes Equal, round and reactive pupils present Cognition (Neuro): normal cognition Motor exam (neuro): 5/5 motor strength present throughout Extrem: General: Yes normal to inspection Psych: Appearance: grossly normal Speech and movement: Normal speech and movement present Affect: normal affect Attitude: cooperative Thought process: Normal thought process present Thought content: Normal thought content present Course Course Course Narrative: 46-year-old male who presents emergency department for evaluation of syncopal episode where he was found unresponsive on his bathroom floor. First responders found the patient to be apneic with an O2 saturation of 51% on room air. Basis that his respirations with a bag-valve mask and administered intranasal Narcan 4 mg. The patient did respond to this treatment and at the time of evaluation emergency department he is awake and alert. He does have a history of opiate use disorder but he denies using opiates today. He states that he had a similar episode where he passed out 1 week prior. Vital signs revealed an elevated blood pressure of 126/93 otherwise were unremarkable. The patient does have an abrasion to his forehead with tenderness with palpation in this area. His exam is otherwise unremarkable. Laboratory evaluation, EKG, chest x-ray, CT scan of the head remainder. Patient will be kept on a cardiac andpulse oximetry monitor 1717: Laboratory evaluation: WBC elevated 13,200. D-dimer elevated 274. glucose elevated 193. Alcohol was below detectable limits. COVID-19 influenza negative. Radiology evaluation: CT scan of the brain without contrast revealed no acute process. Chest x-ray was unremarkable. At this time I do not have a clear etiology for the patient's syncopal episode, I suspect that he may have used narcotics but he denies this at this time. He did not give us a urine sample for testing. The patient does have an elevated D-dimer but I do not think that his syncopal episode was caused by a large pulmonary embolism. I did discuss this with the patient. The patient will be discharged home. I did given intranasal Narcan pack and I did discuss t he way to use narcotics safely in the presence of a sober person that can administer Narcan and call 911. MDM - Syncope Lab Data Result diagrams: 12/04/21 14:09 12/04/21 14:09 Labs: Lab Results 12/04/21 12/04/21 12/04/21 Range/Units 14:09 14:09 14:09 WBC 13.2 H (4.8-10.8) X10*3/uL RBC 5.20 (4.60-5.80) X10*6/uL Hgb 15.5 (14.0-18.0) g/dl Hct 45.1 (42.0-52.0) % MCV 86.7 (80.0-98.0) fL MCH 29.8 (27.0-33.0) pg MCHC 34.4 (31.0-36.0) g/dl RDW 12.5 (11.0-16.0) % Plt Count 214 (160-400) X10*3/uL MPV 10.0 (9.4-12.4) fL Immature Gran % (Auto) 0.5 H (0.0-0.4) % Neut % (Auto) 92.9 H (45-73) % Lymph % (Auto) 3.0 L (20-40) % [place] % (Auto) 3.4 (2-11) % Eos % (Auto) 0.0 (0-4) % Baso % (Auto) 0.2 (0-2) % Lymph # (Auto) 0.4 L (1.2-4.9) X10*3/uL [place] # (Auto) 0.5 (0.1-1.2) X10*3/uL Eos # (Auto) 0.0 (0.0-0.4) X10*3/uL Baso # (Auto) 0.0 (0.0-0.2) X10*3/uL Abs Immat Gran (auto) 0.06 H (0.00-0.03) X10*3/uL Absolute Neuts (auto) 12.3 H (2.0-8.3) x10*3/uL Absolute Nucleated RBC 0.000 (0.0-0.012) X10*3/uL Nucleated RBC % (auto) 0.0 (0.0-0.2) /100WBC Smear Tech's Comments VERIFIED D-Dimer High Sensitivty 274 NG/ML Sodium 138 (135-145) mmol/L Potassium 4.2 (3.3-5.1) mmol/L Chloride 102 (96-108) mmol/L Carbon Dioxide 25 (22-29) mmol/L Anion Gap 15 (12-20) BUN 14 (9-16) mg/dL Creatinine 1.23 (0.5-1.4) mg/dL Estim Creat Clear Calc 81.7 Estimated GFR > 60 Random Glucose 193 H D (60-115) mg/dL Calcium 9.4 (8.4-10.2) mg/dL Total Bilirubin 1.0 (0.0-1.0) mg/dL AST 44 H (5-37) U/L ALT 87 H (0-40) U/L Alkaline Phosphatase 100 (39-117) U/L Total Creatine Kinase 163 (38-174) U/L Troponin I High Sens (<3.5-35.0) ng/L B-Natriuretic Peptide (<100) pg/mL Total Protein 7.5 (6.5-8.0) g/dL Albumin 4.3 (3.5-5.0) g/dL Lipase 4 L (8-78) U/L Ethyl Alcohol mg/dL COVID-19 (CHAU) (Negative) COVID-19 Clin Com Influenza Type A (ABDI) (Negative) Influenza Type B (ABDI) (Negative) Influenza A & B Note 12/04/21 12/04/21 12/04/21 Range/Units 14:09 14:09 14:09 WBC (4.8-10.8) X10*3/uL RBC (4.60-5.80) X10*6/uL Hgb (14.0-18.0) g/dl Hct (42.0-52.0) % MCV (80.0-98.0) fL MCH (27.0-33.0) pg MCHC (31.0-36.0) g/dl RDW (11.0-16.0) % Plt Count (160-400) X10*3/uL MPV (9.4-12.4) fL Immature Gran % (Auto) (0.0-0.4) % Neut % (Auto) (45-73) % Lymph % (Auto) (20-40) % [place] % (Auto) (2-11) % Eos % (Auto) (0-4) % Baso % (Auto) (0-2) % Lymph # (Auto) (1.2-4.9) X10*3/uL [place] # (Auto) (0.1-1.2) X10*3/uL Eos # (Auto) (0.0-0.4) X10*3/uL Baso # (Auto) (0.0-0.2) X10*3/uL Abs Immat Gran (auto) (0.00-0.03) X10*3/uL Absolute Neuts (auto) (2.0-8.3) x10*3/uL Absolute Nucleated RBC (0.0-0.012) X10*3/uL Nucleated RBC % (auto) (0.0-0.2) /100WBC Smear Tech's Comments D-Dimer High Sensitivty NG/ML Sodium (135-145) mmol/L Potassium (3.3-5.1) mmol/L Chloride (96-108) mmol/L Carbon Dioxide (22-29) mmol/L Anion Gap (12-20) BUN (9-16) mg/dL Creatinine (0.5-1.4) mg/dL Estim Creat Clear Calc Estimated GFR Random Glucose (60-115) mg/dL Calcium (8.4-10.2) mg/dL Total Bilirubin (0.0-1.0) mg/dL AST (5-37) U/L ALT (0-40) U/L Alkaline Phosphatase (39-117) U/L Total Creatine Kinase (38-174) U/L Troponin I High Sens < 3.5 (<3.5-35.0) ng/L B-Natriuretic Peptide 10 (<100) pg/mL Total Protein (6.5-8.0) g/dL Albumin (3.5-5.0) g/dL Lipase (8-78) U/L Ethyl Alcohol < 10 mg/dL COVID-19 (CHAU) (Negative) COVID-19 Clin Com Influenza Type A (ABDI) (Negative) Influenza Type B (ABDI) (Negative) Influenza A & B Note 12/04/21 12/04/21 Range/Units 14:13 14:13 WBC (4.8-10.8) X10*3/uL RBC (4.60-5.80) X10*6/uL Hgb (14.0-18.0) g/dl Hct (42.0-52.0) % MCV (80.0-98.0) fL MCH (27.0-33.0) pg MCHC (31.0-36.0) g/dl RDW (11.0-16.0) % Plt Count (160-400) X10*3/uL MPV (9.4-12.4) fL Immature Gran % (Auto) (0.0-0.4) % Neut % (Auto) (45-73) % Lymph % (Auto) (20-40) % [place] % (Auto) (2-11) % Eos % (Auto) (0-4) % Baso % (Auto) (0-2) % Lymph # (Auto) (1.2-4.9) X10*3/uL [place] # (Auto) (0.1-1.2) X10*3/uL Eos # (Auto) (0.0-0.4) X10*3/uL Baso # (Auto) (0.0-0.2) X10*3/uL Abs Immat Gran (auto) (0.00-0.03) X10*3/uL Absolute Neuts (auto) (2.0-8.3) x10*3/uL Absolute Nucleated RBC (0.0-0.012) X10*3/uL Nucleated RBC % (auto) (0.0-0.2) /100WBC Smear Tech's Comments D-Dimer High Sensitivty NG/ML Sodium (135-145) mmol/L Potassium (3.3-5.1) mmol/L Chloride (96-108) mmol/L Carbon Dioxide (22-29) mmol/L Anion Gap (12-20) BUN (9-16) mg/dL Creatinine (0.5-1.4) mg/dL Estim Creat Clear Calc Estimated GFR Random Glucose (60-115) mg/dL Calcium (8.4-10.2) mg/dL Total Bilirubin (0.0-1.0) mg/dL AST (5-37) U/L ALT (0-40) U/L Alkaline Phosphatase (39-117) U/L Total Creatine Kinase (38-174) U/L Troponin I High Sens (<3.5-35.0) ng/L B-Natriuretic Peptide (<100) pg/mL Total Protein (6.5-8.0) g/dL Albumin (3.5-5.0) g/dL Lipase (8-78) U/L Ethyl Alcohol mg/dL COVID-19 (CHAU) Negative (Negative) COVID-19 Clin Com See Note Influenza Type A (ABDI) Negative (Negative) Influenza Type B (ABDI) Negative (Negative) Influenza A & B Note See Note ECG Data Attestation: I personally reviewed and interpreted this ECG as follows: Interpretation: 1250: Normal sinus rhythm with a rate of 97, normal [place] interval, normal QRS duration, normal QTC interval, no ST segment elevation, no ST segment depression, no PACs, no PVCs. this is a normal EKG. Discharge Plan Discharge Clinical Impression: Acute alteration in mental status, Syncope Patient Disposition: Home, Self-Care Instructions: Syncope (ED) Additional Instructions: The CT scan of your brain was normal. Your chest x-ray was unremarkable. Your laboratory evaluation was unremarkable. Your are being discharged home with intranasal Narcan. If you are going to continue to use heroin, you should make sure that there is a sober person with you that is not using drugs and that this person can administer intranasal Narcan in the event that you stop breathing. Follow-up with your doctor in 2 days. Please return to the emergency department if your symptoms get worse or if you develop any symptoms that are concerning to you. Prescriptions: No Action lisinopril 10 mg tablet 10 mg PO DAILY Qty: 30 1RF trazodone 50 mg tablet 50 mg PO BEDTIME Qty: 30 0RF bupropion HCl 75 mg tablet 75 mg PO .qhs Qty: 30 0RF bupropion HCl [Wellbutrin SR] 150 mg tablet sustained-release 12 hr 150 mg PO DAILY 0RF
[2021-12-04 14:18] LABS: Basophils Percent Auto 0.2 % (0-2); Hematocrit 45.1 % (42.0-52.0); Hemoglobin 15.5 g/dl (14.0-18.0); Imm Gran Abs Auto 0.06 X10*3/uL (0.00-0.03); Imm Gran Pct Auto 0.5 % (0.0-0.4); Lymphocytes Absolute Auto 0.4 X10*3/uL (1.2-4.9); MANUAL DIFF FLAG SCAN; Mean Corpuscular HGB Conc 34.4 g/dl (31.0-36.0); Mean Corpuscular Hemoglobin 29.8 pg (27.0-33.0); Mean Corpuscular Volume 86.7 fL (80.0-98.0); Monocytes Absolute Auto 0.5 X10*3/uL (0.1-1.2); Monocytes Percent Auto 3.4 % (2-11); Neutrophils Absolute Auto 12.3 x10*3/uL (2.0-8.3); Neutrophils Percent Auto 92.9 % (45-73); Platelet Count 214 X10*3/uL (160-400); Red Cell Distribution Width 12.5 % (11.0-16.0); SCAN SMEAR FLAG 1; White Blood Count 13.2 X10*3/uL (4.8-10.8)
[2021-12-04 14:27] LABS: D Dimer High Sensitivity 274 NG/ML
[2021-12-04 14:35] LABS: Influenza A Negative (Negative); Influenza B2 Negative (Negative)
[2021-12-04 14:35] LABS: Alanine Aminotransferase 87 U/L (0-40); Albumin Level 4.3 g/dL (3.5-5.0); Alkaline Phosphatase 100 U/L (39-117); Anion Gap 15 (12-20); Aspartate Amino Transferase 44 U/L (5-37); Blood Urea Nitrogen 14 mg/dL (9-16); Calcium 9.4 mg/dL (8.4-10.2); Carbon Dioxide 25 mmol/L (22-29); Chloride 102 mmol/L (96-108); Creatinine Clr Calc Pharmacy 81.7; Estimated Glomerular Filt Rate > 60; Ethanol < 10 mg/dL; Glucose Random 193 mg/dL (60-115); Potassium 4.2 mmol/L (3.3-5.1); Sodium 138 mmol/L (135-145); Total Protein 7.5 g/dL (6.5-8.0)
[2021-12-04 14:38] LABS: SLIDE REVIEW VERIFIED
[2021-12-04 14:40] LABS: B Type Natriuretic Peptide 10 pg/mL (<100); Troponin-I High Sensitivity < 3.5 ng/L (<3.5-35.0)
[2021-12-04 14:47] LABS: IDNOW Serial# 55D5AD1C
[2021-12-04 14:47] LABS: Lipase 4 U/L (8-78)
[2021-12-04 14:48] LABS: COVID-19 Test Negative (Negative)
[2021-12-04 15:16] VITALS: BP 109/70; PULSE 93; RESP 16; TEMP 37.1; O2SAT 96
[2021-12-04] MEDS: Naloxone HCl Nasal TAKE HOME 4 MG SPRAY NOSTRILALT (17:43)
== END 2021-12-04 17:45 | disposition home or self-care (01) ==
PROVIDERS: Emergency Provider Emergency Medicine Emergency Medical Services; PCP Internal Medicine
DX: R40.4 Transient alteration of awareness (principal); R55 Syncope and collapse; R06.02 Shortness of breath; S00.81XA Abrasion of other part of head, initial encounter; W19.XXXA Unspecified fall, initial encounter; Z20.822 Contact with and (suspected) exposure to COVID-19; F11.10 Opioid abuse, uncomplicated; F41.9 Anxiety disorder, unspecified; F32.A Depression, unspecified; I10 Essential (primary) hypertension; B19.20 Unspecified viral hepatitis C without hepatic coma; Z79.899 Other long term (current) drug therapy; Y93.9 Activity, unspecified; Y92.012 Bathroom of single-family (private) house as the place of occurrence of the external cause; Y99.9 Unspecified external cause status
CPT/HCPCS: 36415; 70450; 71046; 80053; 82077; 82550; 83690; 83880; 84484; 85025; 85379; 87502; 87635; 93005; 96361; 96374; 96375; 99283; 99284

== ENCOUNTER → 2021-12-31 11:02 | Outpatient (BNVA) | payer OTHER, SELFPAY | PROVIDERS: Visit Provider Internal Medicine | DX: Z51.81 Encounter for therapeutic drug level monitoring (principal); F11.20 Opioid dependence, uncomplicated; R76.8 Other specified abnormal immunological findings in serum | CPT/HCPCS: 80305; 99202 ==

== ENCOUNTER 2022-05-03 18:29 | Emergency (ER) | payer OTHER, SELFPAY ==
[2022-05-03 19:14] VITALS: BP 119/86; PULSE 90; RESP 16; TEMP 36.8; O2SAT 98; BMI 26.6
--- NOTE | 2022-05-03 20:43 | ED.SKABFB ---
HPI - Skin/Abscess/Foreign Bdy General Chief complaint: Skin/Abscess/Foreign Body Stated complaint: Rash On Body Time Seen by Provider: 05/03/22 20:32 Source: patient Mode of arrival: ambulatory Limitations: no limitations History of Present Illness HPI narrative: Patient history of substance abuse complaining of itching with rash bilateral exposed upper extremities also has rash in the back patient says that it feels itching and any scratches and get the rash. No fever no abscess history of MRSA infection Related Data Home Medications Medication Instructions Recorded Confirmed bupropion HCl 150 mg tablet,12 hr 150 mg PO DAILY 11/25/21 11/25/21 sustained-release (Wellbutrin SR) Previous Rx's Medication Instructions Recorded bupropion HCl 75 mg tablet 75 mg PO .qhs #30 tabs 11/25/21 lisinopril 10 mg tablet 10 mg PO DAILY #30 tabs 11/25/21 trazodone 50 mg tablet 50 mg PO BEDTIME #30 tabs 11/25/21 naloxone 4 mg/actuation nasal 4 mg intranasal Q2M PRN opioid 12/26/21 spray (Narcan) overdose #2 ea clonidine HCl 0.1 mg tablet 0.1 mg PO TID 7 days #21 tabs 12/31/21 hydroxyzine pamoate 25 mg capsule 25 mg PO TID PRN nausea and 12/31/21 (Vistaril) vomiting #21 caps buprenorphine 4 mg-naloxone 1 mg 1 film sublingual BID 3 days #6 ea 01/07/22 sublingual film (Suboxone) sulfamethoxazole 800 1 tab PO BID #20 tabs 05/03/22 mg-trimethoprim 160 mg tablet (Bactrim DS) Allergies Allergy/AdvReac Type Severity Reaction Status Date / Time shellfish derived Allergy Unknown SWELLING Verified 12/31/21 11:13 [SHELLFISH DERIVED] Review of Systems Review of Systems: Yes all other systems are reviewed and are negative PMFSH Past Medical History Medical History Depression Drug abuse OCD (obsessive compulsive disorder) Surgical History History of anterior cruciate ligament surgery Family History Family History Mother Drinking problem Other Mental health disorder Substance use disorder Social History Social History Household Members: None Housing: Other 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 Do you presently have visiting nurse or other home services: No Alcohol intake: never Patient Tobacco Use Status: Never used Tobacco e-Cigarette/Vaping Use: Never Used Second Hand Smoke Exposure: Yes Substance Use Type: Crack/Cocaine and Heroin Advance Directives: No Advance Directives Information Provided: No service: No Current occupational status: unemployed Current occupational exposures/hazards: No Cognitive needs: No Hearing needs: No Vision needs: No Physical Exam Vital Signs: Vital Signs: Last Vital Signs Temp 98.3 F 05/03/22 19:14 Pulse 90 05/03/22 19:14 Resp 16 05/03/22 19:14 BP 119/86 05/03/22 19:14 Pulse Ox 98 05/03/22 19:14 O2 Del Method 05/03/22 19:14 BMI result Body Mass Index 26.6 Appearance: Alert. Oriented X3. No acute distress. Eyes: PERRLA, No Nystagmus ENT: Pharynx normal. Oral Mucosa moist Neck: Normal inspection. Neck supple. CVS: Normal heart rate and rhythm. Pulses normal. Respiratory: No respiratory distress. Equal air entry bilateral, Abdomen: Soft and nontender. Bowel sounds are present, Skin: Skin warm and dry. Normal skin color. Normal skin turgor. Multiple patches of macular papular rash over the extreme upper extremities and the back possible MRSA infection Extremities: No lower extremity edema. No calf tenderness Neuro: Oriented X 3. No motor deficit. Discharge Plan Discharge Clinical Impression: MRSA (methicillin resistant Staphylococcus aureus) Patient Disposition: Home, Self-Care Instructions: MRSA (Methicillin-Resistant Staphylococcus Aureus) (ED) Additional Instructions: likely you have MRSA infection take antibiotics as adv Prescriptions: New sulfamethoxazole-trimethoprim [Bactrim DS] 800-160 mg tablet 1 tab PO BID Qty: 20 0RF No Action naloxone [Narcan] 4 mg/actuation spray,non-aerosol 4 mg intranasal Q2M PRN (Reason: opioid overdose) Qty: 2 0RF Rx Instructions: spray 1 dose into ONE nostril; alternate nostrils w each dose until help arrives buprenorphine-naloxone [Suboxone] 4-1 mg film 1 film sublingual BID 3 Days Qty: 6 0RF lisinopril 10 mg tablet 10 mg PO DAILY Qty: 30 1RF trazodone 50 mg tablet 50 mg PO BEDTIME Qty: 30 0RF bupropion HCl 75 mg tablet 75 mg PO .qhs Qty: 30 0RF bupropion HCl [Wellbutrin SR] 150 mg tablet sustained-release 12 hr 150 mg PO DAILY hydroxyzine pamoate [Vistaril] 25 mg capsule 25 mg PO TID PRN (Reason: nausea and vomiting) Qty: 21 0RF clonidine HCl 0.1 mg tablet 0.1 mg PO TID 7 Days Qty: 21 0RF Interventions: ED Discharge Assessment Last Done: 05/03/22 20:54 Discharge Date/Time: 05/03/22 20:55
[2022-05-03] MEDS: Sulfamethox/Trimeth 800/160 TABLET 1 TAB PO (20:52)
[2022-05-03] MEDS: hydrOXYzine HCL 25 MG TABLET PO (20:52)
== END 2022-05-03 20:55 | disposition home or self-care (01) ==
LOC: HO.ED 20:50
PROVIDERS: Emergency Provider Internal Medicine; PCP Internal Medicine
DX: A49.02 Methicillin resistant Staphylococcus aureus infection, unspecified site (principal); R21 Rash and other nonspecific skin eruption; F11.10 Opioid abuse, uncomplicated; F14.10 Cocaine abuse, uncomplicated; Z79.899 Other long term (current) drug therapy
CPT/HCPCS: 99282; 99283

== ENCOUNTER 2022-05-10 10:16 | Emergency (ER) | payer OTHER, SELFPAY ==
[2022-05-10 10:32] VITALS: BP 160/86; PULSE 95; RESP 20; TEMP 36.7; O2SAT 96; BMI 25.1
--- NOTE | 2022-05-10 11:11 | ED_ITS ---
HPI - Skin/Abscess/Foreign Bdy General Chief complaint: Skin/Abscess/Foreign Body Stated complaint: Tapeworm? Time Seen by Provider: 05/10/22 10:35 Source: patient Mode of arrival: ambulatory Limitations: no limitations History of Present Illness HPI narrative: 46-year-old male with a history of anxiety, depression, hypertension, OCD, substance use presents with reports of painful and itching rash over his body f or the last 1-2 weeks. Patient tells me he was seen here on May 03 and diagnosed with a skin infection. He has taken approximately 6 doses of antibiotics since then and reports continued rash. He denies any fevers, chills, vomiting, abdominal pain, headache, neck pain or neck stiffness, diarrhea. No recent travel or sick contact. He tells me he has a history of IV drug use abuse has not used in over 1 year. No history of skin popping. Related Data Home Medications Medication Instructions Recorded Confirmed bupropion HCl 150 mg tablet,12 hr 150 mg PO DAILY 11/25/21 11/25/21 sustained-release (Wellbutrin SR) Previous Rx's Medication Instructions Recorded bupropion HCl 75 mg tablet 75 mg PO .qhs #30 tabs 11/25/21 lisinopril 10 mg tablet 10 mg PO DAILY #30 tabs 11/25/21 trazodone 50 mg tablet 50 mg PO BEDTIME #30 tabs 11/25/21 naloxone 4 mg/actuation nasal 4 mg intranasal Q2M PRN opioid 12/26/21 spray (Narcan) overdose #2 ea clonidine HCl 0.1 mg tablet 0.1 mg PO TID 7 days #21 tabs 12/31/21 hydroxyzine pamoate 25 mg capsule 25 mg PO TID PRN nausea and 12/31/21 (Vistaril) vomiting #21 caps buprenorphine 4 mg-naloxone 1 mg 1 film sublingual BID 3 days #6 ea 01/07/22 sublingual film (Suboxone) sulfamethoxazole 800 1 tab PO BID #20 tabs 05/03/22 mg-trimethoprim 160 mg tablet (Bactrim DS) cephalexin 500 mg capsule 500 mg PO BID #14 caps 05/10/22 hydroxyzine HCl 25 mg tablet 25 mg PO QID PRN itching #30 tabs 05/10/22 mupirocin 2 % topical ointment 1 appl topical TID #22 grams 05/10/22 Allergies Allergy/AdvReac Type Severity Reaction Status Date / Time shellfish derived Allergy Unknown SWELLING Verified 12/31/21 11:13 [SHELLFISH DERIVED] Review of Systems Review of Systems: Yes all other systems are reviewed and are negative Constitutional: Constitutional: Reports no additional constitutional complaints, Denies body ache(s), Denies chills, Denies fever(s), Denies headache(s) and Denies weakness Eyes: Eyes: Reports no additional eye complaints and Denies change in vision ENT: Reports system reviewed and no additional complaints, except as documented, Denies dizziness, Denies headache(s), Denies nasal congestion, Denies nasal discharge and Denies neck pain Cardiovascular: Cardiovascular: Reports no additional cardiovascular complaints, Denies chest pain, Denies leg edema and Denies dyspnea Respiratory: Respiratory: Reports no additional respiratory complaints, Denies cough and Denies dyspnea Gastrointestinal: Gastrointestinal: Reports no additional gastrointestinal complaints, Denies abdominal pain, Denies diarrhea, Denies nausea and Denies vomiting Genitourinary: Genitourinary: Denies urinary incontinence Musculoskeletal: Musculoskeletal: Reports no additional musculoskeletal complaints, Denies back pain, Denies arthralgias, Denies joint swelling, Denies neck pain, Denies numbness and Denies tingling Integumentary/Breasts: Skin/Breast: Reports system reviewed and no additional complaints, except as docu and Reports rash Neurologic: Reports system reviewed and no additional complaints, except as d ocumented, Denies Abnormal speech present, Denies dizziness, Denies headache(s), Denies numbness, Denies tingling and Denies weakness PMF Past Medical History Attestation statement: The following information was validated with the patient. Source: old records reviewed and nursing notes reviewed Medical History Depression Drug abuse OCD (obsessive compulsive disorder) Surgical History History of anterior cruciate ligament surgery Family History Family History Mother Drinking problem Other Mental health disorder Substance use disorder Social History Social History Household Members: None Housing: Other 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 Do you presently have visiting nurse or other home services: No Alcohol intake: never Patient Tobacco Use Status: Never used Tobacco e-Cigarette/Vaping Use: Never Used Second Hand Smoke Exposure: Yes Substance Use Type: Crack/Cocaine and Heroin Advance Directives: Yes Advance Directives on File: Yes Advance Directives Date on File: 05/02/21 service: No Current occupational status: unemployed Current occupational exposures/hazards: No Cognitive needs: No Hearing needs: No Vision needs: No Physical Exam Vital Signs: Vital Signs: Last Vital Signs Temp 98.0 F 05/10/22 10:32 Pulse 95 05/10/22 10:32 Resp 20 05/10/22 10:32 BP 160/86 H 05/10/22 10:32 Pulse Ox 96 05/10/22 10:32 O2 Del Method 05/10/22 10:32 BMI result Body Mass Index 25.1 Const: General: cooperative, healthy appearing, comfortable and no acute distress Orientation/consciousness: patient oriented x3 Limitations: no limitations HEENT: Head: Yes normal to inspection Ears: hearing grossly normal bilaterally General nose exam: Normal external nose present Face and sinus: Yes normal facial exam Mouth: Normal oral and palatal mucosa present Throat: Yes posterior oropharynx normal, Yes tonsils normal and Yes uvula midline Eyes: General: appearance normal, both eyes and all related structures Pupils: Equal, round and reactive pupils present Neck: Neck: Yes normal visual inspection Chest: Chest palpation & inspection: normal inspection of the chest Resp: Effort & Inspection: normal respiratory effort Auscultation: clear to auscultation bilaterally Cardio: Rate: regular rate Rhythm: regular rhythm Peripheral pulses: Peripheral pulses 2+ throughout GI: Inspection: Yes normal to inspection Palpation (GI): Soft to palpation and nontender Auscultation: normal bowel sounds Back/Spine/Pelvis: Thoracic/Lumbar Spine: thoracic and lumbar spine normal to inspection Skin: Other: Multiple skin lesions over the arms, over the dorsal hands, lower extremities, chest and face in various stages of healing with crusting, local erythema surrounding the sites-macular papular. Blanchable. No sloughing. Soles and palms and oropharynx are normal with no lesions noted General skin exam: no rashes or lesions noted Neuro: General: patient oriented x3, no focal motor deficits and normal sen sation to monofilament Cranial nerves: Yes Equal, round and reactive pupils present Cognition (Neuro): normal cognition Speech: No Abnormal speech present Gait exam (Neuro): Normal gait present Motor exam (neuro): 5/5 motor strength present throughout Extrem: General: Yes normal to inspection MDM - Skin/Abscess/Foreign Bdy MDM Narrative Medical decision making narrative: 46-year-old male here with what appears to be a staph skin infection who was seen here on the 03 of May and prescribed Bactrim. Patient has taken about or 6 doses of medication which is not how it was prescribed but reports continued lesions. We discussed he should take it as prescribed and complete the course of antibiotics. Will add cephalexin, hydroxyzine for itching and mupirocin topical. Medical Records Attestation: I reviewed the patient's medical records. Lab Data Attestation: I reviewed the patient's lab results. Discharge Plan Discharge Clinical Impression: Infection, skin, staph Patient Disposition: Home, Self-Care Instructions: MRSA (Methicillin-Resistant Staphylococcus Aureus) (ED) Additional Instructions: Continue your other prescribed antibiotic Do not pick at the skin Prescriptions: New cephalexin 500 mg capsule 500 mg PO BID Qty: 14 0RF mupirocin 2 % ointment 1 appl topical TID Qty: 22 2RF hydroxyzine HCl 25 mg tablet 25 mg PO QID PRN (Reason: itching) Qty: 30 0RF No Action naloxone [Narcan] 4 mg/actuation spray,non-aerosol 4 mg intranasal Q2M PRN (Reason: opioid overdose) Qty: 2 0RF Rx Instructions: spray 1 dose into ONE nostril; alternate nostrils w each dose until help arrives buprenorphine-naloxone [Suboxone] 4-1 mg film 1 film sublingual BID 3 Days Qty: 6 0RF sulfamethoxazole-trimethoprim [Bactrim DS] 800-160 mg tablet 1 tab PO BID Qty: 20 0RF lisinopril 10 mg tablet 10 mg PO DAILY Qty: 30 1RF trazodone 50 mg tablet 50 mg PO BEDTIME Qty: 30 0RF bupropion HCl 75 mg tablet 75 mg PO .qhs Qty: 30 0RF bupropion HCl [Wellbutrin SR] 150 mg tablet sustained-release 12 hr 150 mg PO DAILY hydroxyzine pamoate [Vistaril] 25 mg capsule 25 mg PO TID PRN (Reason: nausea and vomiting) Qty: 21 0RF clonidine HCl 0.1 mg tablet 0.1 mg PO TID 7 Days Qty: 21 0RF Referrals: Po,Maria Del Rosario Levy MD [Primary Care Provider] - 1 week (For persistent symptoms) Interventions: ED Discharge Assessment Last Done: 05/10/22 11:35 Discharge Date/Time: 05/10/22 11:35
== END 2022-05-10 11:35 | disposition home or self-care (01) ==
PROVIDERS: Emergency Provider Emergency Medicine; PCP Internal Medicine
DX: R21 Rash and other nonspecific skin eruption (principal); B95.8 Unspecified staphylococcus as the cause of diseases classified elsewhere; F11.10 Opioid abuse, uncomplicated; F14.10 Cocaine abuse, uncomplicated
CPT/HCPCS: 99283

== ENCOUNTER 2022-10-31 08:43 | Emergency (ER) | payer OTHER, SELFPAY ==
[2022-10-31 08:47] VITALS: BP 130/79; PULSE 93; RESP 17; TEMP 35.8; O2SAT 94; BMI 26.6
--- NOTE | 2022-10-31 10:24 | ED_ITS ---
HPI - General Adult General Chief complaint: General Medical Stated complaint: rash all over Time Seen by Provider: 10/31/22 09:04 Source: patient Mode of arrival: ambulatory Limitations: no limitations History of Present Illness HPI narrative: Patient is a 46-year-old male who presents to the emergency department for evaluation of a rash. He states that he has had a similar rash last year, he was advised at that time that he had an MRSA infection, was given a course of antibiotics, and states that the rash did improve over time. Is described as painful, felt particularly to the bilateral hands, and has a sensation that there is something crawling beneath and on top of his skin. He also feels it to his neck into the bilateral ears. He reports a significant amount of anxiety surrounding this, he has been experiencing intermittent diffuse headaches as well. He denies any known sick contacts. States he is currently residing alone in a hotel room, has not been around anyone with a similar rash. Denies fevers, chills, ear pain, drainage from the ear, sore throat, cough, chest pain, shortness of breath, dizziness, lightheadedness, neck stiffness. He does have a history of IV drug usage, reports that he has used IV opiates approximately once weekly for the past month or so. Related Data Home Medications Medication Instructions Recorded Confirmed bupropion HCl 150 mg tablet,12 hr 150 mg PO DAILY 11/25/21 11/25/21 sustained-release (Wellbutrin SR) Previous Rx's Medication Instructions Recorded bupropion HCl 75 mg tablet 75 mg PO .qhs #30 tabs 11/25/21 lisinopril 10 mg tablet 10 mg PO DAILY #30 tabs 11/25/21 trazodone 50 mg tablet 50 mg PO BEDTIME #30 tabs 11/25/21 naloxone 4 mg/actuation nasal 4 mg intranasal Q2M PRN opioid 12/26/21 spray (Narcan) overdose #2 ea clonidine HCl 0.1 mg tablet 0.1 mg PO TID 7 days #21 tabs 12/31/21 hydroxyzine pamoate 25 mg capsule 25 mg PO TID PRN nausea and 12/31/21 (Vistaril) vomiting #21 caps buprenorphine 4 mg-naloxone 1 mg 1 film sublingual BID 3 days #6 ea 01/07/22 sublingual film (Suboxone) sulfamethoxazole 800 1 tab PO BID #20 tabs 05/03/22 mg-trimethoprim 160 mg tablet (Bactrim DS) cephalexin 500 mg capsule 500 mg PO BID #14 caps 05/10/22 hydroxyzine HCl 25 mg tablet 25 mg PO QID PRN itching #30 tabs 05/10/22 mupirocin 2 % topical ointment 1 appl topical TID #22 grams 05/10/22 cephalexin 500 mg capsule 500 mg PO QID 7 days #28 caps 10/31/22 doxycycline hyclate 100 mg tablet 100 mg PO BID 7 days #14 tabs 10/31/22 hydroxyzine HCl 25 mg tablet 25 mg PO BID PRN itching #14 tabs 10/31/22 permethrin 5 % topical cream 1 appl topical Q7D 2 doses #60 10/31/22 grams Allergies Allergy/AdvReac Type Severity Reaction Status Date / Time shellfish derived Allergy Unknown SWELLING Verified 12/31/21 11:13 [SHELLFISH DERIVED] Review of Systems Review of Systems: Yes all other systems are reviewed and are negative PMFSH Past Medical History Attestation statement: The following information was validated with the patient. Medical History Depression Drug abuse OCD (obsessive compulsive disorder) Surgical History History of anterior cruciate ligament surgery Family History Family History Mother Drinking problem Other Mental health disorder Substance use disorder Social History Social History Household Members: None Housing: Other 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 Do you presently have visiting nurse or other home services: No Alcohol intake: never Patient Tobacco Use Status: Never used Tobacco e-Cigarette/Vaping Use: Never Used Second Hand Smoke Exposure: Yes Substance Use Type: Crack/Cocaine and Heroin Advance Directives: Yes Advance Directives on File: Yes Advance Directives Date on File: 05/02/21 service: No Current occupational status: unemployed Current occupational exposures/hazards: No Cognitive needs: No Hearing needs: No Vision needs: No Physical Exam ED Vital Signs: Vital Signs - 24 hr 10/31/22 08:47 03/04/23 12:02 Temperature 96.5 F L Pulse Rate 93 54 Respiratory Rate 17 16 Blood Pressure 130/79 142/81 H Pulse Oximetry 94 96 Oxygen Delivery Method Room Air Room Air BMI result Body Mass Index 26.6 Appearance: Alert.?Oriented to person, place and time. No acute distress.?Normal affect. Eyes: Pupils equal, round and reactive to light.? ENT: Pharynx normal.??TM normal bilaterally. Excoriation to the external ear/pinna. Neck: Normal inspection.? Neck supple.? No nuchal rigidity. Full AROM. ? CVS: Heart sounds normal. Normal heart rate and rhythm.? Pulses normal.?? Respiratory: No respiratory distress.? Lung sounds clear to auscultation bilaterally?? Abdomen: Soft and non-tender. Normoactive bowel sounds. ? Skin: Skin warm and dry.? Normal skin color.? ?Maculopapular rash present over the bilateral upper extremity, neck, bilateral dorsal hands. Various stages of healing, resting, local erythema. No sloughing. Areas are blanchable. Soles and palms of feet and hands are spared, there are no lesions to the oropharynx. Extremities: No lower extremity edema.? Neuro: Moves all extremities spontaneously. Sensation intact bilaterally. Ambulates with normal steady gait. Medical Decision Making Medical Decision Making MDM Narrative: Patient is a 46-year-old male who presents emergency department for evaluation of a rash, which appears consistent with a likely staph type infection, however he does express concern about sensation of bugs crawling. We discussed treatment with antibiotics; doxycycline and Keflex, in addition hydroxyzine for itch. Reviewed treatment of potential scabies with permethrin, and appropriate treatment of personal belongings/bedding. Although I do not see any evidence of burrows upon examination, however given his living situation and subjective sensation as above, scabies infestation is possible. He is otherwise well appearing, nontoxic, afebrile without tachycardia tachypnea or hypoxia. He is in no apparent distress. Labs are overall unremarkable, no leukocytosis, inflammatory markers within normal limit. At this time patient will be discharged home, advised outpatient follow-up with primary care provider. Discussed worrisome signs and symptoms that would warrant re-evaluation. All questions answered. Differential Diagnosis Differential Diagnoses: The differential diagnosis associated with the presentation includes (As noted above) Lab Data MDM Lab Attestation statement: I reviewed the patient's lab results. 10/31/22 09:43 10/31/22 10:23 Labs: Lab Results 10/31/22 10/31/22 10/31/22 Range/Units 09:43 10:23 11:06 WBC 9.0 (4.8-10.8) X10*3/uL RBC 5.27 (4.60-5.80) X10*6/uL Hgb 14.8 (14.0-18.0) g/dl Hct 43.3 (42.0-52.0) % MCV 82.2 (80.0-98.0) fL MCH 28.1 (27.0-33.0) pg MCHC 34.2 (31.0-36.0) g/dl RDW 12.4 (11.0-16.0) % Plt Count 309 D (160-400) X10*3/uL MPV 10.0 (9.4-12.4) fL Immature Gran % (Auto) 0.3 (0.0-0.4) % Neut % (Auto) 62.8 (45-73) % Lymph % (Auto) 20.7 (20-40) % [place] % (Auto) 9.2 (2-11) % Eos % (Auto) 6.3 H (0-4) % Baso % (Auto) 0.7 (0-2) % Lymph # (Auto) 1.9 (1.2-4.9) X10*3/uL [place] # (Auto) 0.8 (0.1-1.2) X10*3/uL Eos # (Auto) 0.6 H (0.0-0.4) X10*3/uL Baso # (Auto) 0.1 (0.0-0.2) X10*3/uL Abs Immat Gran (auto) 0.03 (0.00-0.03) X10*3/uL Absolute Neuts (auto) 5.7 (2.0-8.3) x10*3/uL Absolute Nucleated RBC 0.000 (0.0-0.012) X10*3/uL Nucleated RBC % (auto) 0.0 (0.0-0.2) /100WBC Sodium 141 (135-145) mmol/L Potassium 4.2 (3.3-5.1) mmol/L Chloride 107 (96-108) mmol/L Carbon Dioxide 23 (22-29) mmol/L Anion Gap 15 (12-20) BUN 19 H (9-16) mg/dL Creatinine 1.07 (0.5-1.4) mg/dL Estim Creat Clear Calc 85.3 Estimated GFR > 60 Random Glucose 106 (60-115) mg/dL Lactic Acid 0.5 (0.5-2.0) mmol/L Calcium 9.3 (8.4-10.2) mg/dL Total Bilirubin 0.7 (0.0-1.0) mg/dL AST 49 H (5-37) U/L ALT 51 H (0-40) U/L Alkaline Phosphatase 90 (39-117) U/L C-Reactive Protein 0.12 (< or = 0.50) mg/dL Total Protein 7.3 (6.5-8.0) g/dL Albumin 4.5 (3.5-5.0) g/dL Prescription Management I considered prescription management with: Antibiotic Discharge Plan Discharge Clinical Impression: Skin infection Patient Disposition: Home, Self-Care Additional Instructions: As discussed, is a rash that you are presenting for is concerning for a potential staph infection, for this I have given a prescription for 2 antibiotics (doxycycline and Keflex) in addition to hydroxyzine to use as needed for itching. However, we also reviewed the potential this rash to be secondary to a scabies infection, treatment for this includes permethrin. Apply the permethrin cream to the body from neck down to the toes, leave this on overnight, and wash it off in the morning. This should be repeated 1 week. Additionally, it is important to clean of all clothing, linens that have been warm/used in the past week in hot water. The should be bagged for approximately 1 week before use. Please follow-up with the primary care provider. You may return back to the emergency department any new or worsening symptoms or concerns. Prescriptions: New doxycycline hyclate 100 mg tablet 100 mg PO BID 7 Days Qty: 14 0RF cephalexin 500 mg capsule 500 mg PO QID 7 Days Qty: 28 0RF hydroxyzine HCl 25 mg tablet 25 mg PO BID PRN (Reason: itching) Qty: 14 0RF permethrin 5 % cream 1 appl topical Q7D Qty: 60 0RF Rx Instructions: apply second treatment 7 days after first treatment if live lice remain No Action naloxone [Narcan] 4 mg/actuation spray,non-aerosol 4 mg intranasal Q2M PRN (Reason: opioid overdose) Qty: 2 0RF Rx Instructions: spray 1 dose into ONE nostril; alternate nostrils w each dose until help arrives buprenorphine-naloxone [Suboxone] 4-1 mg film 1 film sublingual BID 3 Days Qty: 6 0RF cephalexin 500 mg capsule 500 mg PO BID Qty: 14 0RF mupirocin 2 % ointment 1 appl topical TID Qty: 22 2RF hydroxyzine HCl 25 mg tablet 25 mg PO QID PRN (Reason: itching) Qty: 30 0RF sulfamethoxazole-trimethoprim [Bactrim DS] 800-160 mg tablet 1 tab PO BID Qty: 20 0RF lisinopril 10 mg tablet 10 mg PO DAILY Qty: 30 1RF trazodone 50 mg tablet 50 mg PO BEDTIME Qty: 30 0RF bupropion HCl 75 mg tablet 75 mg PO .qhs Qty: 30 0RF bupropion HCl [Wellbutrin SR] 150 mg tablet sustained-release 12 hr 150 mg PO DAILY hydroxyzine pamoate [Vistaril] 25 mg capsule 25 mg PO TID PRN (Reason: nausea and vomiting) Qty: 21 0RF clonidine HCl 0.1 mg tablet 0.1 mg PO TID 7 Days Qty: 21 0RF Referrals: Po,Maria Del Rosario Levy MD [Primary Care Provider] -
[2022-10-31 10:59] LABS: Alanine Aminotransferase 51 U/L (0-40); Albumin Level 4.5 g/dL (3.5-5.0); Alkaline Phosphatase 90 U/L (39-117); Anion Gap 15 (12-20); Aspartate Amino Transferase 49 U/L (5-37); Bilirubin Total 0.7 mg/dL (0.0-1.0); Blood Urea Nitrogen 19 mg/dL (9-16); C Reactive Protein 0.12 mg/dL (< or = 0.50); Calcium 9.3 mg/dL (8.4-10.2); Carbon Dioxide 23 mmol/L (22-29); Chloride 107 mmol/L (96-108); Creatinine Clr Calc Pharmacy 85.3; Estimated Glomerular Filt Rate > 60; Glucose Random 106 mg/dL (60-115); Potassium 4.2 mmol/L (3.3-5.1); Sodium 141 mmol/L (135-145); Total Protein 7.3 g/dL (6.5-8.0)
[2022-10-31 11:38] LABS: Lactic Acid 0.5 mmol/L (0.5-2.0)
[2022-10-31 11:40] LABS: MANUAL DIFF FLAG NO
[2022-10-31 11:41] LABS: Basophils Absolute Auto 0.1 X10*3/uL (0.0-0.2); Basophils Percent Auto 0.7 % (0-2); Eosinophils Absolute Auto 0.6 X10*3/uL (0.0-0.4); Eosinophils Percent Auto 6.3 % (0-4); Hematocrit 43.3 % (42.0-52.0); Hemoglobin 14.8 g/dl (14.0-18.0); Imm Gran Abs Auto 0.03 X10*3/uL (0.00-0.03); Imm Gran Pct Auto 0.3 % (0.0-0.4); Lymphocytes Absolute Auto 1.9 X10*3/uL (1.2-4.9); Lymphocytes Percent Auto 20.7 % (20-40); Mean Corpuscular HGB Conc 34.2 g/dl (31.0-36.0); Mean Corpuscular Hemoglobin 28.1 pg (27.0-33.0); Mean Corpuscular Volume 82.2 fL (80.0-98.0); Monocytes Absolute Auto 0.8 X10*3/uL (0.1-1.2); Monocytes Percent Auto 9.2 % (2-11); Neutrophils Absolute Auto 5.7 x10*3/uL (2.0-8.3); Neutrophils Percent Auto 62.8 % (45-73); Platelet Count 309 X10*3/uL (160-400); Red Blood Count 5.27 X10*6/uL (4.60-5.80); Red Cell Distribution Width 12.4 % (11.0-16.0)
[2022-10-31 12:02] VITALS: BP 142/81; PULSE 54; RESP 16; O2SAT 96
== END 2022-10-31 12:22 | disposition home or self-care (01) ==
PROVIDERS: Emergency Provider Emergency Medicine; PCP Internal Medicine
DX: L08.9 Local infection of the skin and subcutaneous tissue, unspecified (principal); R21 Rash and other nonspecific skin eruption; I10 Essential (primary) hypertension; F41.9 Anxiety disorder, unspecified; F19.10 Other psychoactive substance abuse, uncomplicated; F11.20 Opioid dependence, uncomplicated; Z79.899 Other long term (current) drug therapy
CPT/HCPCS: 36415; 80053; 83605; 85025; 86140; 87040; 99283

== ENCOUNTER 2023-02-04 12:26 | Emergency (ER) | payer OTHER, SELFPAY ==
[2023-02-04 12:54] VITALS: BP 135/67; PULSE 64; RESP 18; TEMP 36.5; O2SAT 98; BMI 26.3
--- NOTE | 2023-02-04 12:54 | ED_ITS ---
HPI - General Adult General Chief complaint: General Medical Stated complaint: Infection Bite L Hand 4 Days Ago Source: patient and RN notes reviewed Mode of arrival: ambulatory Limitations: no limitations History of Present Illness HPI narrative: 39-year-old male presents for evaluation of redness and swelling to his left hand. Patient reports that he had significant redness with an open wound to his left hand at the base of the thumb about 3 days ago. He reports the symptoms are mildly improving. He reports that he picks and scratches at wounds due to ?OCD. ? Denies any fevers, chills pain He is able to bend all fingers There is no redness going up the arm Patient has a remote history of IV drug abuse but reports he has not used in several years No other complaints or concerns at this time Related Data Home Medications Medication Instructions Recorded Confirmed bupropion HCl 150 mg tablet,12 hr 150 mg PO DAILY 11/25/21 11/25/21 sustained-release (Wellbutrin SR) Previous Rx's Medication Instructions Recorded bupropion HCl 75 mg tablet 75 mg PO .qhs #30 tabs 11/25/21 lisinopril 10 mg tablet 10 mg PO DAILY #30 tabs 11/25/21 trazodone 50 mg tablet 50 mg PO BEDTIME #30 tabs 11/25/21 naloxone 4 mg/actuation nasal 4 mg intranasal Q2M PRN opioid 12/26/21 spray (Narcan) overdose #2 ea clonidine HCl 0.1 mg tablet 0.1 mg PO TID 7 days #21 tabs 12/31/21 hydroxyzine pamoate 25 mg capsule 25 mg PO TID PRN nausea and 12/31/21 (Vistaril) vomiting #21 caps buprenorphine 4 mg-naloxone 1 mg 1 film sublingual BID 3 days #6 ea 01/07/22 sublingual film (Suboxone) sulfamethoxazole 800 1 tab PO BID #20 tabs 05/03/22 mg-trimethoprim 160 mg tablet (Bactrim DS) cephalexin 500 mg capsule 500 mg PO BID #14 caps 05/10/22 hydroxyzine HCl 25 mg tablet 25 mg PO QID PRN itching #30 tabs 05/10/22 mupirocin 2 % topical ointment 1 appl topical TID #22 grams 05/10/22 cephalexin 500 mg capsule 500 mg PO QID 7 days #28 caps 10/31/22 doxycycline hyclate 100 mg tablet 100 mg PO BID 7 days #14 tabs 10/31/22 hydroxyzine HCl 25 mg tablet 25 mg PO BID PRN itching #14 tabs 10/31/22 permethrin 5 % topical cream 1 appl topical Q7D 2 doses #60 10/31/22 grams cephalexin 500 mg capsule 500 mg PO QID #28 caps 02/04/23 doxycycline hyclate 100 mg tablet 100 mg PO BID #14 tabs 02/04/23 Allergies Allergy/AdvReac Type Severity Reaction Status Date / Time shellfish derived Allergy Unknown SWELLING Verified 12/31/21 11:13 [SHELLFISH DERIVED] Review of Systems Constitutional: Constitutional: Denies chills and Denies fever(s) Integumentary/Breasts: Skin/Breast: Reports erythema and Reports wounds PMFSH Past Medical History Medical History Depression Drug abuse OCD (obsessive compulsive disorder) Surgical History History of anterior cruciate ligament surgery Family History Family History Mother Drinking problem Other Mental health disorder Substance use disorder Social History Social History Household Members: None Housing: Other 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 Do you presently have visiting nurse or other home services: No Alcohol intake: never Patient Tobacco Use Status: Never used Tobacco e-Cigarette/Vaping Use: Never Used Second Hand Smoke Exposure: Yes Substance Use Type: Crack/Cocaine and Heroin Advance Directives Date on File: 05/02/21 service: No Current occupational status: unemployed Current occupational exposures/hazards: No Cognitive needs: No Hearing needs: No Vision needs: No Physical Exam ED Const General: healthy appearing, comfortable, no acute distress, alert and awake Nutritional Appearance: well nourished Orientation/consciousness: patient oriented x3 HENMT Head: Yes normocephalic and Yes atraumatic Eyes Eyelids: Yes eyelids normal Conjunctivae: conjunctivae normal Sclerae: sclerae normal Corneas: corneas normal Pupils: Equal, round and reactive pupils present EOM: EOMs intact bilaterally Resp Effort & Inspection: normal respiratory effort, able to speak in complete sentences and not labored Skin Other: Patient has a healing wound to the dorsal surface of left hand just proximal to the left 1st MCP joint. It is approximately size of a dime with minimal surroun ding erythema. No fluctuance or induration. Nontender to palpation. Patient has good range of motion flexion extension of the left wrist, all fingers left hand including opposition of thumb. Neuro General: patient oriented x3 Cranial nerves: Yes Equal, round and reactive pupils present and Yes Bilaterally intact EOM present Cognition (Neuro): normal cognition Extrem Other: Moving all extremities well without any obvious deformities Medical Decision Making Medical Decision Making MDM Narrative: Patient appears to have a mild open wound with possibly developing cellulitis, he has a history of MRSA skin infections. Will treat with doxycycline and cephalexin. He denies any IV drug abuse within the last couple years, did not appear septic. I do not see any indication for emergent labs at this time. Patient given return precautions Differential Diagnosis Cellulitis Abscess Open wound MRSA Discharge Plan Discharge Clinical Impression: Cellulitis of hand, left Patient Disposition: Home, Self-Care Instructions: Cellulitis (ED) Additional Instructions: You appear to have a mild infection of the left hand. Take both antibiotics as prescribed Return for new or worsening symptoms including fevers, increasing swelling or redness extending up toward her arm Follow-up with your primary doctor Prescriptions: New doxycycline hyclate 100 mg tablet 100 mg PO BID Qty: 14 0RF cephalexin 500 mg capsule 500 mg PO QID Qty: 28 0RF No Action naloxone [Narcan] 4 mg/actuation spray,non-aerosol 4 mg intranasal Q2M PRN (Reason: opioid overdose) Qty: 2 0RF Rx Instructions: spray 1 dose into ONE nostril; alternate nostrils w each dose until help arrives buprenorphine-naloxone [Suboxone] 4-1 mg film 1 film sublingual BID 3 Days Qty: 6 0RF cephalexin 500 mg capsule 500 mg PO BID Qty: 14 0RF mupirocin 2 % ointment 1 appl topical TID Qty: 22 2RF hydroxyzine HCl 25 mg tablet 25 mg PO QID PRN (Reason: itching) Qty: 30 0RF sulfamethoxazole-trimethoprim [Bactrim DS] 800-160 mg tablet 1 tab PO BID Qty: 20 0RF doxycycline hyclate 100 mg tablet 100 mg PO BID 7 Days Qty: 14 0RF cephalexin 500 mg capsule 500 mg PO QID 7 Days Qty: 28 0RF hydroxyzine HCl 25 mg tablet 25 mg PO BID PRN (Reason: itching) Qty: 14 0RF permethrin 5 % cream 1 appl topical Q7D Qty: 60 0RF Rx Instructions: apply second treatment 7 days after first treatment if live lice remain lisinopril 10 mg tablet 10 mg PO DAILY Qty: 30 1RF trazodone 50 mg tablet 50 mg PO BEDTIME Qty: 30 0RF bupropion HCl 75 mg tablet 75 mg PO .qhs Qty: 30 0RF bupropion HCl [Wellbutrin SR] 150 mg tablet sustained-release 12 hr 150 mg PO DAILY hydroxyzine pamoate [Vistaril] 25 mg capsule 25 mg PO TID PRN (Reason: nausea and vomiting) Qty: 21 0RF clonidine HCl 0.1 mg tablet 0.1 mg PO TID 7 Days Qty: 21 0RF
== END 2023-02-04 13:09 | disposition home or self-care (01) ==
PROVIDERS: Emergency Provider Emergency Medicine; PCP Internal Medicine
DX: L03.114 Cellulitis of left upper limb (principal); I10 Essential (primary) hypertension; F11.20 Opioid dependence, uncomplicated; Z79.899 Other long term (current) drug therapy
CPT/HCPCS: 99282; 99283

== ENCOUNTER 2023-04-17 09:17 | Outpatient (AMB) | payer OTHER, SELFPAY ==
[2023-04-17 09:21] VITALS: BP 140/80; PULSE 83; TEMP 36.6; O2SAT 97; BMI 24.5
--- NOTE | 2023-04-17 09:21 | AM.OFFWIN_ITS ---
Intake Vital Signs 04/17/23 09:21 Height 5 ft 9 in Weight 166 lb BMI 24.5 BP 140/80 H Blood Pressure Location Lt brachial Position Sitting Pulse 83 Pulse Source Pulse Oximeter Temp 97.9 F Temp Source Temporal Artery Scan Pulse Oximetry (%) 97 Oxygen Delivery Method Room Air Intake Visit Reasons: EP Rash Intake Note: pt is here for c/o rash states its been on going for over a year, had gone to the ED a few times when it had worsened and was treated with a course of antibiotics, as well as permethrin for likely scabies infestation. Patient states that he did complete the antibiotics, but was only using the permethrin on different areas of the body as needed, and did not follow directions to cover all of his skin as directed. He states that he did not understand that the cream was to eradicate a scabies infection. 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 Do you presently have visiting nurse or other home services: No Alcohol intake: never Patient Tobacco Use Status: Never used Tobacco e-Cigarette/Vaping Use: Never Used Second Hand Smoke Exposure: Yes Substance Use Type: Crack/Cocaine and Heroin Advance Directives Date on File: 05/02/21 service: No Current occupational status: unemployed Current occupational exposures/hazards: No Cognitive needs: No Hearing needs: No Vision needs: No Physical Exam Vital Signs: Last Vital Signs Temp 97.9 F 04/17/23 09:21 Pulse 83 04/17/23 09:21 BP 140/80 H 04/17/23 09:21 Pulse Ox 97 04/17/23 09:21 Oxygen Delivery Method Room Air 04/17/23 09:21 BMI result Body Mass Index 24.5 Skin Other: Patient has a maculopapular rash throughout his body, sparing his face and most of the anterior trunk. It is excoriated, and lesions are in various stages of healing, including some crusted ones. His hands appear to be the worst, with his left hand especially having erythematous, edematous and warm fingers. No current bleeding, no induration or fluctuance, and no streaking. There is some obvious burrowing and pattern to the lesions suggesting travel of mites Assessment & Plan Assessment & Plan (1) Scabies: Code(s): B86 - Scabies Plan: Patient with longstanding infestation of scabies, which has not been thoroughly eradicated as he was not following directions for the permethrin cream, and did not understand the cause of the infection/infestation at the time he was diagnosed. We discussed at length that he needs to cover his entire body (sp aring the face) with the cream, and leave on for at least 8 hours while he sleeps, and then shower it off the next morning. He then was advised to repeat the course in 2 weeks. The most symptomatic areas are his hands, which he admits to scratching and picking. I wrote him for another course of doxycycline and Keflex, as this has cleared skin infections for him in the past, and he has MRSA history with IV drug use. He will monitor the hands for worsening redness, swelling and warmth, as well as discharge. We also discussed washing his clothes and bedding in hot water and on high heat, and cleaning his house with bleach. If symptoms continue to persist, he might need oral anti parasitic therapy. He agree to this plan, and was grateful that this had been diagnosed, as he was also thinking this was an infestation of some type. He will follow up if symptoms persist or worsen Medications: New doxycycline hyclate 100 mg PO BID 10 days 20 caps 0RF cephalexin 500 mg PO BID 10 days 20 caps 0RF hydroxyzine pamoate (Vistaril) 25 mg PO TID PRN 30 caps 0RF itching permethrin 5% apply second treatment 14 days after first treatment if live lice remain 1 appl topical Q14D 60 grams 0RF Coding Level of Care Code Est Pt Level 4 (89426) Diagnoses Scabies B86
== END 2023-04-17 11:05 | disposition home or self-care (01) ==
PROVIDERS: PCP Internal Medicine; Visit Provider Physician Assistant Medical
DX: B86 Scabies (principal)
CPT/HCPCS: 99051; 99214

== ENCOUNTER 2023-04-25 11:21 | Emergency (ER) | payer OTHER, SELFPAY ==
[2023-04-25 11:46] VITALS: BP 179/98; PULSE 95; RESP 18; TEMP 37.3; O2SAT 98; BMI 24.6
--- NOTE | 2023-04-25 11:48 | ED_ITS ---
HPI - Skin/Abscess/Foreign Bdy General Chief complaint: Skin/Abscess/Foreign Body Stated complaint: Rash Time Seen by Provider: 04/25/23 12:29 Source: patient Mode of arrival: ambulatory Limitations: no limitations History of Present Illness HPI narrative: Patient is a 47-year-old male with history of IV drug use presenting to the emergency department with complaint of rash to bilateral hands, feet. Reports sensation of bugs crawling under his skin. States he has used nail clippers to attempt to remove bugs from under his skin. Reports picking at his skin in the areas of irritation. Reports recent treatment with permethrin which he states nearly resolved his symptoms. States his symptoms returned shortly after completing his treatment. Reports living with 5 other people, states that his dog sleeps in bed with him, is unsure if this is related to his recurrent symptoms. Denies fevers. MD complaint: rash Onset (ago): day(s) Tetanus up to date: unsure Location: L hand, R hand and R foot Severity: severe Quality: foreign body sensation Relieving factors: other (permethrin) Exacerbating factors: none Associated symptoms: denies other symptoms Treatments prior to arrival: other (permethrin) Related Data Previous Rx's Medication Instructions Recorded naloxone 4 mg/actuation nasal 4 mg intranasal Q2M PRN opioid 12/26/21 spray (Narcan) overdose #2 ea clonidine HCl 0.1 mg tablet 0.1 mg PO TID 7 days #21 tabs 12/31/21 cephalexin 500 mg capsule 500 mg PO BID 10 days #20 caps 04/17/23 doxycycline hyclate 100 mg capsule 100 mg PO BID 10 days #20 caps 04/17/23 hydroxyzine pamoate 25 mg capsule 25 mg PO TID PRN itching #30 caps 04/17/23 (Vistaril) permethrin 5 % topical cream 1 appl topical Q14D 2 doses #60 04/23/23 grams cephalexin 500 mg capsule 500 mg PO QID #28 caps 04/25/23 doxycycline hyclate 100 mg capsule 100 mg PO BID #14 caps 04/25/23 permethrin 5 % topical cream 1 appl topical ONCE 1 day #60 grams 04/25/23 Allergies Allergy/AdvReac Type Severity Reaction Status Date / Time shellfish derived Allergy Unknown SWELLING Verified 04/25/23 11:51 [SHELLFISH DERIVED] Review of Systems Review of Systems: As per HPI Yes all other systems are reviewed and are negative Constitutional: Constitutional: Reports as per HPI [facility] Past Medical History Medical History Depression Drug abuse OCD (obsessive compulsive disorder) Surgical History History of anterior cruciate ligament surgery Family History Family History Mother Drinking problem Other Mental health disorder Substance use disorder Social History Social History Household Members: None Housing: Other 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 Do you presently have visiting nurse or other home services: No Alcohol intake: never Patient Tobacco Use Status: Never used Tobacco e-Cigarette/Vaping Use: Never Used Second Hand Smoke Exposure: Yes Substance Use Type: Crack/Cocaine and Heroin Advance Directives: Yes Advance Directives on File: Yes Advance Directives Date on File: 05/02/21 service: No Current occupational status: unemployed Current occupational exposures/hazards: No Cognitive needs: No Hearing needs: No Vision needs: No Physical Exam Vital Signs: Vital Signs: Last Vital Signs Temp 99.1 F 04/25/23 11:46 Pulse 95 04/25/23 11:46 Resp 18 04/25/23 11:46 BP 179/98 H 04/25/23 11:46 Pulse Ox 98 04/25/23 11:46 O2 Del Method Room Air 04/25/23 11:46 BMI result Body Mass Index 24.6 Vital signs have been reviewed and appear to be correct. Blood pressure elevated. Heart rate normal. Respiratory rate normal. Temperature normal. Oxygen saturation normal. Const: General: cooperative, healthy appearing and no acute distress Orientation/consciousness: oriented to person, oriented to place, oriented to time and patient oriented x3 Limitations: no limitations HEENT: Head: Yes normocephalic and Yes atraumatic Ears: external ears normal General nose exam: Normal external nose present Face and sinus: Yes face symmetric Mouth: Normal oral and palatal mucosa present, oropharynx normal and moist mucous membranes Throat: Yes uvula midline Eyes: Pupils: Equal, round and reactive pupils present Neck: Neck: Yes normal visual inspection and Yes supple Resp: Effort & Inspection: normal respiratory effort and able to speak in complete sentences Auscultation: clear to auscultation bilaterally Cardio: Rate: regular rate Rhythm: regular rhythm Heart sounds: S1 normal heart sound present and S2 normal heart sound present GI: Palpation (GI): Soft to palpation and nontender Auscultation: normoactive bowel sounds : General: Yes no CVA tenderness Back/Spine/Pelvis: Back: no CVA tenderness Skin: Other: Erythematous blanchable maculopapular rash to bilateral hands and feet on both palmar/plantar and dorsal surfaces, some with scabbing, some areas of skin with epidermidis peeled back. No areas of fluctuance or induration. General skin exam: elasticity normal and turgor normal Neuro: General: oriented to person, oriented to place, oriented to time, patient oriented x3, moves all extremities, no focal motor deficits and CN's II- XI intact bilaterally Cranial nerves: Yes Equal, round and reactive pupils present Cognition (Neuro): normal cognition Extrem: General: Yes full ROM, Yes no pedal edema and Yes no calf tenderness Psych: Mental Status: mental status grossly normal Affect: normal affect Thought process: Normal thought process present Course Course Course Narrative: This is an RME: Additional HPI, ROS, PE not included below will be deferred to primary provider. Patient is a 47-year-old male who presents emergency department for evaluation of recurrent bilateral hand rash. He states that 5 days ago had near resolution of the rash to bilateral hands with the use of permethrin cream, but it continues to return despite the use of this. He reports history of similar rash in the past, has been advised that it was an MRSA infection as well. Medical Decision Making Medical Decision Making MDM Narrative: Patient is a 47-year-old male with history of IV drug use presenting to the emergency department with complaint of rash to bilateral hands, feet. On exam patient is awake, A+Ox3, VS WNL, afebrile, nontoxic appearing, normal neurological exam without focal deficits, patient is hyperverbal and perseverating about rash, blanchable erythematous maculopapular rash to bilateral hands and feet with some areas of scabbing and epidermis peeled back, no fluctuance or induration. Given reported symptoms and physical exam findings, initial differential includes cellulitis, scabies, contact dermatitis, dyshidrotic eczema. Do not suspect TEN/SJS, DRESS, secondary syphyllis. Given history IV drug use as well as prior cellulitis, will treat with doxycycline and Keflex. Given that patient is insistent that he feels and sees bugs crawling under his skin, we will repeat permethrin treatment. Discussed with patient cleaning of clothing/bedding/towel. Return precautions discussed at bedside. Advised patient to follow-up with primary care provider this week. Patient verbalized understanding of and agreement with plan. Differential Diagnosis Differential Diagnoses: The differential diagnosis associated with the presentation includes As per MDM. External Record Review External record reviewed: Inpatient record, Office record and Outpatient record Prescription Management I considered prescription management with: Antibiotic and Other Discharge Plan Discharge Clinical Impression: Cellulitis of finger, Rash and nonspecific skin eruption Patient Disposition: Home, Self-Care Instructions: Cellulitis (DC), Scabies (ED) Additional Instructions: You are being treated for scabies infection with permethrin cream. Please apply the cream from head to toe at bedtime and leave cream on overnight, then shower in the morning. As we discussed, it is important to thoroughly clean all clothing, bedding, towel is with extremely hot water. These items should be bagged for 1 week prior to being reused. You are also being treated with antibiotics for a skin infection also known as cellulitis. Follow-up with your primary care provider this week. Return to the emergency department with new or worsening symptoms. Prescriptions: New cephalexin 500 mg capsule 500 mg PO QID Qty: 28 0RF doxycycline hyclate 100 mg capsule 100 mg PO BID Qty: 14 0RF permethrin 5 % cream 1 appl topical ONCE 1 Days Qty: 60 0RF No Action naloxone [Narcan] 4 mg/actuation spray,non-aerosol 4 mg intranasal Q2M PRN (Reason: opioid overdose) Qty: 2 0RF Rx Instructions: spray 1 dose into ONE nostril; alternate nostrils w each dose until help arrives permethrin 5 % cream 1 appl topical Q14D Qty: 60 0RF Rx Instructions: apply second treatment 14 days after first treatment if live lice remain doxycycline hyclate 100 mg capsule 100 mg PO BID 10 Days Qty: 20 0RF cephalexin 500 mg capsule 500 mg PO BID 10 Days Qty: 20 0RF hydroxyzine pamoate [Vistaril] 25 mg capsule 25 mg PO TID PRN (Reason: itching) Qty: 30 0RF clonidine HCl 0.1 mg tablet 0.1 mg PO TID 7 Days Qty: 21 0RF
== END 2023-04-25 14:10 | disposition home or self-care (01) ==
PROVIDERS: Emergency Provider Emergency Medicine; PCP Internal Medicine
DX: R21 Rash and other nonspecific skin eruption (principal); L03.019 Cellulitis of unspecified finger; B86 Scabies; F42.9 Obsessive-compulsive disorder, unspecified
CPT/HCPCS: 99282; 99283

== ENCOUNTER 2023-06-15 10:32 | Emergency (ER) | payer OTHER, SELFPAY ==
--- NOTE | ~2023-06-15 | XR_ITS ---
EXAMINATION: XR HAND, RIGHT XR HAND, LEFT CLINICAL INFORMATION: Pain. COMPARISON: Left finger/hand radiographs dated 05/01/2021. TECHNIQUE: PA, oblique, and lateral views of the right and left hand. FINDINGS: Right Hand: No acute fracture or dislocation. Normal carpal alignment. No joint space narrowing or marginal osteophytes. No osseous erosion. No abnormal soft tissue calcification. Left Hand: No acute fracture or dislocation. Normal carpal alignment. Mild joint space narrowing with small marginal osteophytes at the 1st carpometacarpal joint. No osseous erosion. No abnormal soft tissue calcification. XR/XR hand LT min 3V IMPRESSION: RIGHT HAND: Unremarkable examination. LEFT HAND: Mild degenerative arthritis at the 1st carpometacarpal joint.
--- NOTE | ~2023-06-15 | XR_ITS ---
EXAMINATION: XR HAND, RIGHT XR HAND, LEFT CLINICAL INFORMATION: Pain. COMPARISON: Left finger/hand radiographs dated 05/01/2021. TECHNIQUE: PA, oblique, and lateral views of the right and left hand. FINDINGS: Right Hand: No acute fracture or dislocation. Normal carpal alignment. No joint space narrowing or marginal osteophytes. No osseous erosion. No abnormal soft tissue calcification. Left Hand: No acute fracture or dislocation. Normal carpal alignment. Mild joint space narrowing with small marginal osteophytes at the 1st carpometacarpal joint. No osseous erosion. No abnormal soft tissue calcification. XR/XR hand RT min 3V IMPRESSION: RIGHT HAND: Unremarkable examination. LEFT HAND: Mild degenerative arthritis at the 1st carpometacarpal joint.
--- NOTE | 2023-06-15 11:41 | ED.GENADULT ---
HPI - General Adult General Chief complaint: Extremity Problem Stated complaint: L and R hand pain Time Seen by Provider: 06/15/23 12:32 Source: patient Mode of arrival: ambulatory Limitations: no limitations History of Present Illness HPI narrative: 47 y/o male with history of HTN, history of drug use with history of hepatitis C, anxiety and depression who presents to the ER for evaluation of an acute on chronic burning and itching rash to the bilateral hands with other lesions on the upper extremities and bilateral feet. He states he has been here several times in the past for similar rash. He has been told it was eczema, MRSA infection, parasites. He states the only thing that worked for him was the treatment for scabies but the rash came back after 2 weeks. He did not treat with the cream x2. He states the rash is so bothersome he soaks his hands in bleach and water to kill what he thinks are parasites in his skin. He scrapes away the skin with a knife. MD complaint: painful, itchy rash on bilateral hands, feet, UE Onset (ago): year(s) (1) Location: left, right, upper extremity and lower extremity Severity: similar to prior episodes Severity scale (1-10): 10 Quality: burning and constant Relieving factors: none Exacerbating factors: none Associated symptoms: denies other symptoms Treatments prior to arrival: none Related Data Previous Rx's Medication Instructions Recorded naloxone 4 mg/actuation nasal 4 mg intranasal Q2M PRN opioid 12/26/21 spray (Narcan) overdose #2 ea clonidine HCl 0.1 mg tablet 0.1 mg PO TID 7 days #21 tabs 12/31/21 cephalexin 500 mg capsule 500 mg PO BID 10 days #20 caps 04/17/23 doxycycline hyclate 100 mg capsule 100 mg PO BID 10 days #20 caps 04/17/23 hydroxyzine pamoate 25 mg capsule 25 mg PO TID PRN itching #30 caps 04/17/23 (Vistaril) permethrin 5 % topical cream 1 appl topical Q14D 2 doses #60 04/23/23 grams cephalexin 500 mg capsule 500 mg PO QID #28 caps 04/25/23 doxycycline hyclate 100 mg capsule 100 mg PO BID #14 caps 04/25/23 permethrin 5 % topical cream 1 appl topical ONCE 1 day #60 grams 04/25/23 diphenhydramine HCl 25 mg capsule 25 mg PO TID PRN itching #20 caps 06/15/23 (Benadryl) permethrin 5 % topical cream 1 appl topical Q14D 2 doses #60 06/15/23 grams Allergies Allergy/AdvReac Type Severity Reaction Status Date / Time shellfish derived Allergy Unknown SWELLING Verified 04/25/23 11:51 [SHELLFISH DERIVED] Review of Systems Review of Systems: Yes all other systems are reviewed and are negative [facility] Past Medical History Medical History Depression Drug abuse OCD (obsessive compulsive disorder) Surgical History History of anterior cruciate ligament surgery Family History Family History Mother Drinking problem Other Mental health disorder Substance use disorder Social History Social History Household Members: None Housing: Other 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 Do you presently have visiting nurse or other home services: No Alcohol intake: never Patient Tobacco Use Status: Never used Tobacco e-Cigarette/Vaping Use: Never Used Second Hand Smoke Exposure: Yes Substance Use Type: Crack/Cocaine and Heroin Advance Directives: Yes Advance Directives on File: Yes Advance Directives Date on File: 05/02/21 service: No Current occupational status: unemployed Current occupational exposures/hazards: No Cognitive needs: No Hearing needs: No Vision needs: No Physical Exam ED Vital Signs: Vital Signs - 24 hr 06/15/23 11:42 Temperature 97.0 F Pulse Rate 57 Respiratory Rate 16 Blood Pressure 112/57 L Pulse Oximetry 97 Oxygen Delivery Method Room Air BMI result Body Mass Index 25.2 Appearance: Alert. Oriented X3. No acute distress. Anxious Head: normocephalic, atraumatic. Eyes: Pupils equal, round and reactive to light. ENT: Pharynx normal. No tonsillar swelling or exudate. Neck: Normal inspection. Neck supple. CVS: Normal heart rate and rhythm. Pulses normal. Respiratory: No respiratory distress. Breath sounds normal. Abdomen: Soft and nontender. +BS x4 Skin: Skin warm and dry. bilateral hands with scattered erythematous maclopapular lesions w/ dry excoriated skin throughout. left lateral aspect of 1st digit with a line of lesions in a row, possible burrowing. no webspace lesions. Extremities: No lower extremity edema. No joint swelling. Neuro/psych: Oriented X 3. No motor deficit. No sensory deficit. CN II-XII intact. Normal speech and cognition. Course Course Course Narrative: This is an RME: Additional HPI, ROS, PE not included below will be deferred to primary provider. 47-year-old male presenting for bilateral hand pain x 2 years 04/08 today. Atraumatic. Plan- xr Medical Decision Making Medical Decision Making MDM Narrative: 47 yo male presenting with a burning, itching and painful rash to bilateral hands, feet and small areas scattered on the upper extremities. acute on chronic over 1 year. hx drug use and is concerned about parasitic infections and states he can see things crawling inside reports improvement w/ permethrin x1 in the past will start empiric tx with permethrin x2 no evidence of superimposed bacterial infection at this time importance of derm referral and sobriety stressed stable for d/c home Differential Diagnosis Differential Diagnoses: The differential diagnosis associated with the presentation includes dyshidrotic eczema, scabies, cellulitis, adverse reaction to drugs, psoriasis, drug induced paranoia External Record Review External record reviewed: Outpatient record Prescription Management I considered prescription management with: Pain Medication and Antibiotic Social Determinants Patient?s care significantly limited by Social Determinants of Health including: Problems related to primary support group and Other Social Determinant of Health Critical Care Time Critical Care Time Critical Care Time: No Discharge Plan Discharge Clinical Impression: Rash of both hands Patient Disposition: Home, Self-Care Instructions: Scabies (ED) Additional Instructions: use the prescribed cream tonight and then repeat again in 9 days follow up with dermatology as soon as possible - call for an appointment [facility] [address] [place] [address] Prescriptions: New permethrin 5 % cream 1 appl topical Q14D Qty: 60 0RF Rx Instructions: apply second treatment 9 days diphenhydramine HCl [Benadryl] 25 mg capsule 25 mg PO TID PRN (Reason: itching) Qty: 20 0RF No Action naloxone [Narcan] 4 mg/actuation spray,non-aerosol 4 mg intranasal Q2M PRN (Reason: opioid overdose) Qty: 2 0RF Rx Instructions: spray 1 dose into ONE nostril; alternate nostrils w each dose until help arrives permethrin 5 % cream 1 appl topical Q14D Qty: 60 0RF Rx Instructions: apply second treatment 14 days after first treatment if live lice remain cephalexin 500 mg capsule 500 mg PO QID Qty: 28 0RF doxycycline hyclate 100 mg capsule 100 mg PO BID Qty: 14 0RF permethrin 5 % cream 1 appl topical ONCE 1 Days Qty: 60 0RF doxycycline hyclate 100 mg capsule 100 mg PO BID 10 Days Qty: 20 0RF cephalexin 500 mg capsule 500 mg PO BID 10 Days Qty: 20 0RF hydroxyzine pamoate [Vistaril] 25 mg capsule 25 mg PO TID PRN (Reason: itching) Qty: 30 0RF clonidine HCl 0.1 mg tablet 0.1 mg PO TID 7 Days Qty: 21 0RF Referrals: Po,Maria Del Rosario Levy MD [Primary Care Provider] - Stand Alone Forms: Work/School Release Interventions: ED Discharge Assessment Last Done: 06/15/23 14:00 Discharge Date/Time: 06/15/23 14:00
[2023-06-15 11:42] VITALS: BP 112/57; PULSE 57; RESP 16; TEMP 36.1; O2SAT 97; BMI 25.2
--- OUTSIDE RECORDS SUMMARY | 2023-06-15 12:36 | XMS_ITS | Continuity of Care Document ---
Author Name Unknown Organization [facility] ter Address [address] [place] [id number]- Care Team Providers Care Transmitter Operator Name Role Phone Britton Campbell HUDSON MD Primary Care Physici an [place] [facility] [place]/22[place]23 - 04/23/[address] [address]- Discharge Disposition: A-D/C Walkout Attending Physician: Not on Staff, Attending MD Admitting Physician: Not on Staff, Admitting MD Referring Physician: Not on Staff, Referring MD Allergies, Adverse Reactions, Alerts Substance Reaction Severity Status shellfish Angioedema Active Immunizations Given and Recorded Vaccine Date Status Refusal Reason tetanus/diphtheria/pertussis, acel(Tdap) 04/04/23 Given Medications Bactrim DS Tablet See Instructions, 28, 0, 0, 04/02/07 5:50:47, Take 2 pills 2x daily, Print LISBETH Number, ADS OPPTHS, Constant Indicator Start Date: 04/02/07 Status: Ordered Cephalexin Capsule 500, mg, By Mouth, 4 times a day, 28, 0, 0, 04/02/07 5:51:09, Print LISBETH Number, ADS OPPTHS, 65, Constant Indicator Start Date: 04/02/07 Status: Ordered cephalexin monohydrate 500 mg oral capsule 1 capsule = 500 mg, By Mouth, 4 times a day, # 28 capsule, 0 Refills, Maintenance, 04/04/23 21:14:00 EDT, Capsule, [id number], Partial fill upon patient request if the prescription is for a schedule II opioid drug., 175, cm, 04/04/23 20:10:00... Start Date: 04/04/23 Stop Date: 04/11/23 Status: Ordered doxycycline hyclate 100 mg oral tablet 1 tablet = 100 mg, By Mouth, Daily, # 7 tablet, 0 Refills, Maintenance, 04/04/23 21:15:00 EDT, Tablet, [id number], Partial fill upon patient request if the prescription is for a schedule II opioid drug., 175, cm, 04/04/23 20:10:00 EDT, Height,... Start Date: 04/04/23 Stop Date: 04/11/23 Status: Ordered Percocet-5 Tablet 1 or 2 tablets, By Mouth, Every 4 hours, Scheduled / PRN, 15, 0, 0, 04/02/07 5:50:36, as needed forpain, (not to exceed 4000 mg acetaminophen per day), Print LISBETH Number, ADS OPPTHS, 51 Start Date: 04/02/07 Status: Ordered permethrin 5% topical cream 1 application, Topically, Once, # 60 Gm, 0 Refills, Soft Stop, 04/04/23 21:15:00 EDT, Cream, [id number], Partial fill upon patient request if the prescription is for a schedule II opioid drug., 1 application Topically Once, 175, cm, 04/04/23 2... Start Date: 04/04/23 Status: Ordered Vital Signs Most recent to oldest [Reference Range]: 1 Height 177 cm (04/22/23 11:40 PM) Oxygen Saturation [94-100 %] 100 % (04/22/23 11:40 PM) Pulse Rate [55-90 bpm] 84 bpm (04/22/23 11:40 PM) Blood Pressure [90-138/55-84 mm Hg] 209/ 106mm Hg *H* (04/22/23 11:40 PM) Respiratory Rate [16-30 br/min] 18 br/mi n (04/22/23 11:40 PM) Temperature [96.8-100.4 DegF] 98.1 DegF (04/22/23 11:40 PM) Mode of Delivery (Oxygen) Room air (04/22/23 11:40 PM) Blood pressure sites Arm, right (04/22/23 11:40 PM) Temperature Route Oral (04/22/23 11:40 PM) Dry Weight 77 kg (04/22/23 11:40 PM) Dry Weight Obtained Via Patient/family s tated (04/22/23 11:40 PM) Patient Care team information Care Team Personnel Name: Britton HUDSON MD , Campbell Guerrero Position: Reference Physician Member Role: PCP Address: Address: [address] [place] [id number]- Care Team Related Persons Name: STEPHEN BERGMAN Address: [address] [place] [address]
--- OUTSIDE RECORDS SUMMARY | 2023-06-15 12:36 | XMS_ITS | Continuity of Care Document ---
Author Name Unknown Organization [facility] ter Address [address] [place] [id number]- Care Team Providers Care Oracle Application Consultant Name Role Phone Britton Campbell HUDSON MD Primary Care Physici an Encounter [facility] Date(s): 04/04/23 - 04/04/[address] [address]- Encounter Diagnosis Cellulitis(Final) - 04/04/23 Skin picking habit(Final) - 04/04/23 Discharge Disposition: A-D/C Home Attending Physician: Penny Dillon DO Admitting Physician: Penny Dillon DO Referring Physician: Not on Staff, Referring MD [...] Refills, Maintenance, 04/04/23 21:14:00 EDT, Capsule, [id number], Partial fill upon patient request if the prescription is for a schedule II opioid drug., 175, cm, 04/04/23 20:10:00... Start Date: 04/04/23 Stop Date: 04/11/23 Status: Ordered doxycycline hyclate 100 mg oral tablet 1 tablet = 100 mg, By Mouth, Daily, # 7 tablet, 0 Refills, Maintenance, 04/04/23 21:15:00 EDT, Tablet, [id number], Partial fill upon patient request if [...] Refills, Soft Stop, 04/04/23 21:15:00 EDT, Cream, [facility] #[id number], Partial fill upon patient request if the prescription is for a schedule II opioid drug., 1 application Topically Once, 175, cm, 04/04/23 2... Start Date: 04/04/23 Status: Ordered Vital Signs Most recent to oldest [Reference Range]: 1 2 Height 175 cm (04/04/23 8:10 PM) 175 cm (04/04/23 8:06 PM) Oxygen Saturation [94-100 %] 97 % (04/04/23 8:06 PM) Pulse Rate [55-90 bpm] 97 bpm *H* (04/04/23 8:06 PM) Blood Pressure [90-138/55-84 mm Hg] 163/ 97mm Hg *H* (04/04/23 8:06 PM) Temperature [96.8-100.4 DegF] 98.6 DegF (04/04/23 8:06 PM) Mode of Delivery (Oxygen) Room air (04/04/23 8:06 PM) Blood pressure sites Arm, left (04/04/23 8:06 PM) Temperature Route Oral (04/04/23 8:06 PM) Dry Weight 75.5 kg (04/04/23 8:10 PM) 75.5 kg (04/04/23 8:06 PM) Dry Weight Obtained Via Standing scale (04/04/23 8:06 PM) Note * Penny Dillon DO: PERFORM Event Display: Patient Education Leaflets Authored Date: [id number] Permethrin Topical Cream ?? [id number] Permethrin Topical Cream Brands: Acticin, Elimite Uses For scabies. ?? Instructions DO NOT take this medicine by mouth. Apply the medicine to the affected area. Wash the area first before applying medicine. If you are using this medicine on the scalp or other hairy areas, move hair out of the way and apply as directly to the skin as possible. Keep the medicine at room temperature. Avoid heat and direct light. This medicine should only be used on the skin. You must follow your healthcare provider's instructions carefully to kill all the bugs and avoid becoming infected again. Family members and anyone who has been in close contact should be checked to see if they also need to be treated. Avoid getting the medicine in the eyes, nose, or mouth. Wash the medicine off your fingers after applying it. Avoid getting this medicine inside the vagina. Gently rub the medicine into area until evenly spread. Do not touch your eyes, nose or mouth after handling the medicine. If medicine gets in your eyes, rinse well with warm water. It is normal for skin redness, itching and pain to be worse for a few days after treatment. Itchingmay continue for up to 4 weeks after treatment. Do not use this medicine more than once unless instructed by your healthcare provider. Tell your doctor and pharmacist about all your medicines. Include prescription and ymio-wvd-wzosydvrdlxzmbic, vitamins, and herbal medicines. Do not freeze the medicine. ?? Cautions Tell your doctor and pharmacist if you ever had an allergic reaction to a medicine. Do not use the medication any more than instructed. Tell the doctor or pharmacist if you are , planning to be , or . Do not share this medicine with anyone who has not been prescribed this medicine. ?? Side Effects The following is a list of some common side effects from this medicine. Please speak with your doctor about what you should do if you experience these or other side effects. ??? burning or stinging ??? itching ??? red, burning, or itchy skin ??? skin irritation where medicine is applied A few people may have an allergic reaction to this medicine. Symptoms can include difficulty breathing, skin rash, itching, swelling, or severe dizziness. If you notice any of these symptoms, seek medical help quickly. ?? Extra Please speak with your doctor, nurse, or pharmacist if you have any questions about this medicine. ?? [email or web address] IMPORTANT NOTE: This document tells you briefly how to take your medicine, but it does not tell youall there is to know about it. Your doctor or pharmacist may give you other documents about your medicine. Please talk to them if you have any questions. Always follow their advice. There is a more complete description of this medicine available in [employer]. Scan this code on your smartphone or tablet or use the web address below. You can also ask your pharmacist for a printout. If you have any questions, please ask your pharmacist. The display and use of this drug information is subject to Terms of Use. Copyright(c) 2022 [employer]. ?? [employer]. All rights reserved. This information is not intended as a substitute for professional medical care. Always follow your healthcare professional's instructions. ?? * Penny Dillon DO: PERFORM Event Display: Patient Education Leaflets Authored Date: Scabies ?? [id number] Scabies Scabies is a skin infection. It's caused by a tiny??parasitic mite that's too small to see directly. It can be seen under a microscope, but it's often recognized??only by the rash and symptoms it causes. This can make it hard to diagnose since the signs and symptoms can be similar to other diseases. The scabies mite tunnels under the skin. It creates a small jacki, where it leaves its eggs. Theseeggs luna and grow into adults. They then create new burrows over the next 1 to 2 weeks. The mitesdie in about 4 to 6 weeks. The rash and itching are caused by an allergic reaction to the scabies mites' saliva or feces. Scabies is highly contagious. It's spread by direct skin contact. It's easily spread by prolonged close personal contact, sexual contact, or by sharing bed linens or clothing used by an infected person. It may take 4 to 6 weeks for symptoms to appear after being exposed. Everyone living in the house with you, as well as your sexual partners, should be treated at the same time. After the first treatment, you will no longer be contagious. You may return to work, school, or daycare. Home care ??? Machine wash in hot water all sheets, towels, pillowcases, underwear, pajamas, and any other clothing you have worn lately. Use the hot cycle of a dryer. If an item can't be laundered, dry clean the item. ??? Seal anything that is hard to wash in a plastic trash bag for at least 3 days, and possibly up to a week. This includes coats, jackets, blankets, and bedspreads. (The insects after 3days off the human body.) Medicines Scabicides Medicines used to treat scabies are called scabicides. These are creams that kill the scabies mites. A prescription is needed. When using these medicines: ??? Always follow instructions provided by your healthcare provider and pharmacist. Also follow theprinted instructions that come with the medicine. ??? Talk with your provider about precautions to take when using these medicines. ??? Use the cream on your body when your skin is cool and dry. Don???t use it after a hot shower or bath. ??? Follow your healthcare provider's instructions for applying the medicine. Usually the cream is put on your whole body. This means from your chin all the way down to your toes.??Scabies doesn't often affect an adult???s head. So cream isn't needed there.??For children, discuss how to apply the medicine with your child???s provider. ??? Leave the cream or lotion on for the advised amount of time. This is usually 8 to 12 hours. ??? Don???t leave cream or lotion on your skin longer than directed. Don???t use more than advised. ??? Wear clean clothes afterthe treatment. ??? If you wash your hands after using the cream, reapply the cream to your hands. ??? If you're , wash off your nipples before feeding. Then reapply the cream after . ??? For babies or infants, put mittens on their hands. This will stop them from licking the cream or lotion. It will also stop them from scratching themselves because of the itching. Other medicines ??? An oral medicine called ivermectin may be prescribed for severe cases that don't respond to topical creams. It may also be used if you can???t apply creams. Or if your child has crusted scabies from a weak immune system, such as from cancer treatment or an organ transplant. ??? Itching may cause the most discomfort. If large areas of your skin are affected,??tgtf-srt-mwndyhq antihistamines??may be used to reduce itching. Or you may be given a prescription antihistamine.??Some of these medicines may make you sleepy. They are best used at bedtime. Antihistamines that don???tmake you sleepy can be used during the day.??Note: Don???t use??medicine that has diphenhydramine??if you have glaucoma. Or if you're a man who has trouble passing urine due to an enlarged prostate. ??? If you were given antibiotics due to a bacterial infection, take them until they're finished. It's important to finish the antibiotics even if the wound looks better. This is to make sure the infection has cleared. ?? Follow-up care Follow up with your healthcare provider as advised. Call your provider if your symptoms don???t improve after 1 week, or if new burrows or rashes appear. When to get medical advice Call your healthcare provider if any of these occur: ??? Yellow-brown crusts or drainage from the sores ??? Other signs of infection, including increasing redness, swelling, pain, or pus ??? Fever of100.4??F (38??C) or higher, or as advised by your provider (see Fever and children below) ?? Fever and children Use a digital thermometer to check your child???s temperature. Don???t use a mercury thermometer. There are different kinds and uses of digital thermometers. They include: ??? Rectal. For children younger than 3 years old, a rectal temperature is the most accurate. ??? Forehead (temporal). This works for children age 3 months and older. If a child under 3 months old has signs of illness, this can be used for a first pass. The provider may want to confirm with a rectal temperature. ??? Ear (tympanic). Ear temperatures are accurate after 6 months of age, but not before. ??? Armpit (axillary). This is the least reliable but may be used for a first pass to check a child of any age with signs of illness. The provider may want to confirm with a rectal temperature. ??? Mouth (oral). Don???t use a thermometer in your child???s mouth until they are at least 4 years old. Use the rectal thermometer with care. Follow the product maker???s directions for correct use. Insert it gently. Label it and make sure it???s not used in the mouth. It may pass on germs from the stool. If you don???t feel OK using a rectal thermometer, ask the healthcare provider what type to use instead. When you talk with any healthcare provider about your child???s fever, tell them which typeyou used. Below are guidelines to know if your young child has a fever. Your child???s healthcare provider may give you different numbers for your child. Follow your provider???s specific instructions. Fever readings for a baby under 3 months old: ??? First, ask your child???s healthcare provider how you should take the temperature. ??? Rectal or forehead: 100.4??F (38??C) or higher ??? Armpit: 99??F (37.2??C) or higher Fever readings for a child age 3 months to 36 months (3 years): ??? Rectal, forehead, or ear: 102??F (38.9??C) or higher ??? Armpit: 101??F (38.3??C) or higher Call the healthcare provider in these cases: ??? Repeated temperature of 104??F (40??C) or higher in a child of any age ??? Fever of 100.4?? (38??C) or higher in baby younger than 3 months ??? Fever that lasts more than 24 hours in a child under age 2 ??? Fever that lasts for 3 days in a child age 2 or older ?? Last Reviewed Date: 2021 ?? [employer]. All rights reserved. This information is not intended as a substitute for professional medical care. Always follow your healthcare professional's instructions. ?? * Penny Dillon DO: PERFORM Event Display: Patient Education Leaflets Authored Date: [id number] Wound Care ?? [id number] Wound Care You have a break in the skin. This wound may be because of an injury. Or it may be the result of surgery. Closing the wound helps stop bleeding, protects the wound from infection, and speeds healing.The type of closure that is used depends on the size and location of the wound. Choices include stitches (sutures), strips of surgical tape, skin glue, or henry. Home care Your healthcare provider may prescribe medicines??for pain.??Or they may suggest an??gjvr-jln-liwngxz (OTC) pain reliever, such as ibuprofen, naproxen, or acetaminophen. If you have chronic kidney disease, talk with your provider??before taking any??OTC medicines. Also talk with your provider if you 've??had a stomach ulcer or gastrointestinal bleeding. In certain cases, antibiotics may be prescribed to help prevent infection. If antibiotics are prescribed, take them exactly as directed for as long as directed. Don't stop taking your antibiotics until they are all gone, even if you feel better. General care ??? Follow the healthcare provider???s instructions on how to care for the wound. ??? Wash your hands with soap and clean, running water before and after caring for the wound. This helps prevent infection. If you have disposable plastic gloves, wear those to care for your wound. Then dispose of them correctly. ??? If a bandage was applied, change it once a day or as directed. If at any time the bandage becomes wet or dirty, replace it with a new one. If the wound is wet, gently pat it dry with a clean cloth before putting on a new bandage. ??? Unless told otherwise, don't soak the wound in water. Take showers or sponge baths instead of tub baths. Don't scrub or pick at the wound. ??? Don't go swimming, or put the wound under water. ??? Don't scratch, rub, or pick at the area. ??? Watch for the signs of infection listed below. Any wound can get infected, even if you are taking antibiotics. Seek care right away if you see any possible signs of infection. Care for specific closures ??? Stitches.??You may want to clean the wound daily after the first 2 to 3 days. To do this, remove the bandage and gently wash the area with soap and clean, running water. After cleaning, apply a thin layer of antibiotic ointment if recommended. Then apply a new bandage. Two types of stitches may be used: absorbable and nonabsorbable. Ask your healthcare provider whattype of stitches were used. Ask if you need to return for a follow-up visit. Nonabsorbable stitchesneed to be removed by your healthcare provider. ??? Surgical tape. Keep the area dry. If it gets wet, blot it dry with a clean towel. Surgical tape closures usually fall off within 7 to 10 days. If they have not fallen off after 10 days, you can remove them yourself. To remove the tape, moisten it with clean, running water. Gently pull it from each end to the middle. Then roll it sideways so as to not pull the wound open again. If the adhesive sticks too much, you can use mineral oil or petroleum jelly on a cotton ball to gently rub the adhesive. Always check with your healthcare provider befo re you remove any closure device. ??? Skin glue. You may shower or bathe as usual, but don't use soaps, lotions, or ointments on the wound area. Don't scrub the wound. After bathing, pat the wound dry with a soft towel. Don't apply liquids like peroxide, ointments, or creams to the wound while the glue is in place. Don't scratch, rub, or pick at the glue. Don't put tape directly over the glue. The glue will fall off naturally in 5 to 10 days. If it does not easily peel off in 10 days, gently rub petroleum jelly or an ointment onto the glue until it loosens it. ??? Henry. Take showers or sponge baths. Don't take tub baths. Don't use lotions on the wound area. The area may be cleaned with soap and water 2 to 3 days after the wound was stapled. Don't scrub the wound. Pat it dry with a clean soft cloth or towel. You can use antibiotic ointment??if your provider tells you to. Henry will need to be removed by your healthcare provider in 10 to 14 days. ?? Follow-up care Follow up with your healthcare provider, or??as directed. If you have nonabsorbable stitches or henry, return for their removal as directed. ?? When to seek medical advice Call your healthcare provider right away if you have signs of infection: ??? Fever of 100.4??F (38??C) or higher, or as directed by your healthcare provider ??? Increasing pain in the wound ??? Increasing redness or swelling ??? Pus or bad-smelling drainage from the wound Also call your provider right away if any of these occur: ??? Wound bleeds more than a small amountor won???t stop bleeding ??? Wound edges come apart ??? Numbness or weakness occurs in the wound area and doesn???t go away ?? Last Reviewed Date: 2021 ?? [id number] [employer]. All rights reserved. This information is not intended as a substitute for professional medical care. Always follow your healthcare professional's instructions. ?? Patient Care team information Care Team Personnel Name: Campbell Jarquin III, MD Position: Reference Physician Member Role: PCP Address: Address: [address] [place] [id number]- Name: Penny Dillon DO Position: [facility] Resident Member Role: Admitting Physician Address: Address: [address] [place] [address] [place] [address]- Care Team Related Persons Name: STEPHEN BERGMAN Address: home [address] [place] [id number]
--- OUTSIDE RECORDS SUMMARY | 2023-06-15 12:36 | XMS_ITS | Continuity of Care Document ---
Author Name Unknown Organization [facility] Address [address] [place] [id number]- Care Team Providers Care Foamite Mixer Name Role Phone Britton HUDSON MD, Campbell Guerrero Primary Care Physici an Encounter [facility] Date(s): 11/28/21 - 11/29/[address] [address]- Discharge Disposition: A-D/C Home Attending Physician: Concetta Elizalde MD Admitting Physician: Concetta Elizalde MD Referring Physician: Not on Staff, Referring MD Allergies, Adverse Reactions, Alerts Substance Reaction Severity Status shellfish Angioedema Active Medications Bactrim DS Tablet See Instructions, 28, 0, 0, 04/02/07 5:50:47, Take 2 pills 2x daily, Print LISBETH Number, ADS OPPTHS, Constant Indicator Start Date: 04/02/07 Status: Ordered Cephalexin Capsule 500, mg, By Mouth, 4 times a day, 28, 0, 0, 04/02/07 5:51:09, Print LISBETH Number, ADS OPPTHS, 65, Constant Indicator Start Date: 04/02/07 Status: Ordered Percocet-5 Tablet 1 or 2 tablets, By Mouth, Every 4 hours, Scheduled / PRN, 15, 0, 0, 04/02/07 5:50:36, as needed forpain, (not to exceed 4000 mg acetaminophen per day), Print LISBETH Number, ADS OPPTHS, 51 Start Date: 04/02/07 Status: Ordered Vital Signs Most recent to oldest [Reference Range]: 1 Oxygen Saturation [94-100 %] 97 % (11/28/21 11:32 PM) Pulse Rate [55-90 bpm] 88 bpm (11/28/21 11:32 PM) Blood Pressure [90-138/55-84 mm Hg] 147/ 86mm Hg *H* (11/28/21 11:32 PM) Respiratory Rate [16-30 br/min] 18 br/mi n (11/28/21 11:32 PM) Temperature [96.8-100.4 DegF] 98.1 DegF (11/28/21 11:32 PM) Mode of Delivery (Oxygen) Room air (11/28/21 11:32 PM) Blood pressure sites Arm, left (11/28/21 11:32 PM) Temperature Route Oral (11/28/21 11:32 PM)
== END 2023-06-15 14:00 | disposition home or self-care (01) ==
PROVIDERS: Emergency Provider Emergency Medicine Emergency Medical Services; PCP Internal Medicine
DX: R21 Rash and other nonspecific skin eruption (principal); M79.642 Pain in left hand; M79.641 Pain in right hand; I10 Essential (primary) hypertension; F11.20 Opioid dependence, uncomplicated; F41.9 Anxiety disorder, unspecified; Z79.899 Other long term (current) drug therapy
CPT/HCPCS: 73130; 99282; 99283

== ENCOUNTER 2023-07-26 20:18 | Emergency (ER) | payer OTHER, SELFPAY ==
[2023-07-26 21:13] VITALS: BP 145/65; PULSE 71; RESP 16; TEMP 36.7; O2SAT 97; BMI 25.8
== END 2023-07-26 21:52 | disposition left against medical advice (07) ==
PROVIDERS: Emergency Provider Emergency Medicine
DX: M79.642 Pain in left hand (principal); M79.641 Pain in right hand
CPT/HCPCS: 99281

== ENCOUNTER 2025-05-28 09:57 | Emergency (ER) | payer OTHER, SELFPAY ==
[2025-05-28 10:10] VITALS: BP 144/81; PULSE 56; RESP 18; TEMP 36.8; O2SAT 96; BMI 27.3
[2025-05-28] MEDS: Tetracaine HCl/PF 0.5% Oph Sol 4 ML DROPS 1 DROP EYE-RIGHT (11:17)
--- NOTE | 2025-05-28 11:20 | ED_ITS ---
HPI - Eye Problem General Chief complaint: Eye Problems Stated complaint: metal shaving in eye Time Seen by Provider: 05/28/25 10:43 Source: patient Mode of arrival: ambulatory Limitations: no limitations History of Present Illness ED Provider: SILVIA ALLEN Narrative: 49 yo male with no sig PMH here with R eye pain after cutting a metal pipe and not using eye protection. No vision changes. Does not wear contacts, not UTD on tdap. He notes someone tried to remove the FB with tweezers but it didn't work. He also has 1+ month of recurrent thickened skin on knuckles. chief complaint: foreign body Onset (ago): day(s) (today) Onset description: sudden Duration: constant Eye Symptoms: pain and foreign body sensation Place: work Mechanism: direct trauma Severity: moderate If Pain, Quality: burning Context: trauma Associated symptoms: none Treatments Prior to Arrival: other Related Data Previous Rx's ?Medication ?Instructions ?Recorded naloxone 4 mg/actuation nasal 4 mg intranasal Q2M PRN opioid 12/26/21 spray (Narcan) overdose #2 ea clonidine HCl 0.1 mg tablet 0.1 mg PO TID 7 days #21 t abs 12/31/21 cephalexin 500 mg capsule 500 mg PO BID 10 days #20 ca ps 04/17/23 doxycycline hyclate 100 mg capsule 100 mg PO BID 10 da ys #20 caps 04/17/23 hydroxyzine pamoate 25 mg capsule 25 mg PO TID PRN itc tito #30 caps 04/17/23 (Vistaril) cephalexin 500 mg capsule 500 mg PO QID #28 caps 04/25 doxycycline hyclate 100 mg capsule 100 mg PO BID #14 c aps 04/25/23 permethrin 5 % topical cream 1 appl topical ONCE 1 day #60 grams 04/25/23 diphenhydramine HCl 25 mg capsule 25 mg PO TID PRN itc tito #20 caps 06/15/23 (Benadryl) permethrin 5 % topical cream 1 appl topical Q14D 2 dos es #60 06/15/23 grams permethrin 5 % topical cream 1 appl topical Q14D 2 dos es #60 07/29/23 grams erythromycin 5 mg/gram (0.5 %) eye 0.5 inch ophthalmic (eye) BID 5 05/28/25 ointment days #3.5 grams Allergies Allergy/AdvReac Type Severity Reaction Status Date / Time shellfish derived (SHELLFISH Allergy Unknown SWELLING Verified 05/28/25 10:13 DERIVED) Review of Systems Review of Systems: Yes all other systems are reviewed and are negative [facility] Past Medical History Attestation statement: The following information was validated with the patient. Source: old records reviewed Medical History Drug abuse Depression OCD (obsessive compulsive disorder) Surgical History History of anterior cruciate ligament surgery Family History Family History Mother Drinking problem Other Mental health disorder Substance use disorder Social History Social History Household Members: None Housing: Other 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 Do you presently have visiting nurse or other home services: No Alcohol intake: never Patient Tobacco Use Status: Never used Tobacco e-Cigarette/Vaping Use: Never Used Second Hand Smoke Exposure: Yes Substance Use Type: Crack/Cocaine and Heroin Advance Directives: Yes Advance Directives on File: Yes Advance Directives Date on File: 05/02/21 service: No Current occupational status: unemployed Current occupational exposures/hazards: No Cognitive needs: No Hearing needs: No Vision needs: No Physical Exam Vital Signs: Vital Signs: Last Vital Signs Temp 98.3 F 05/28/25 11:32 Pulse 43 L 05/28/25 11:32 Resp 18 05/28/25 11:32 BP 150/94 H 05/28/25 11:32 Pulse Ox 97 05/28/25 11:32 O2 Del Method Room Air 05/28/25 11:32 BMI result Body Mass Index 27.3 Appearance: Alert. Oriented X3. No acute distress. Eyes: Pupils equal, round and reactive to light. R eye with tetracaine and fluorescein on his R eye there is no rupture or sandra sign, you can see on pterygium an oval shaped da silva area that is not able to be removed with steril saline soaked cotton swab. It is only in the area of the pterygium. I see no laceration. ENT: atraumatic Neck: Normal inspection. CVS: Pulses normal. Respiratory: No respiratory distress. Abdomen: Soft and nontender. Skin: Skin warm and dry. Normal skin color. Extremities: No lower extremity edema. thickened almost keloid lesions on knuckles he admits he pulls them off and they come back he tries to shave them down no signs of infection, nothing on palms or dorsum just PIP and DIP Neuro: Oriented X 3. No motor deficit. No sensory deficit. Medications Administered Discontinued Medications Generic Name Dose Route Start Last Admin Trade Name Dana PRN Reason Stop Dose Admin Diphtheria/Tetanus/Acell Pertussis 0.5 ml 05/28/25 11:24 05/28/25 11:31 Diphth,Pertus(Acell),Tet Adult 0.5 Ml Syringe IM 05/28/25 11:25 0.5 ml .ONCE ONE Administration Tetracaine HCl 1 drop 05/28/25 10:45 05/28/25 11:17 Tetracaine Hcl/Pf 0.5% Oph Analy 4 Ml Drops EYE-RIGHT 05/28/25 10:46 1 drop ONCE ONE Administration Medical Decision Making Medical Decision Making MDM Narrative: 49 yo male with no sig PMH here with R eye pain has visualized FB in the pterigyum but not on cornea and no rupture. Will update Tdap and refer him to ophtho I cannot remove it in the ED. He also needs to see derm for his hands, no lesions to suggest syphillis, no signs of infection Differential Diagnosis Differential Diagnoses: The differential diagnosis associated with the presentation includes FB, abrasion Admission/Observation Consideration of admission/observation: Escalation of care including admission/observation considered can follow up as outpatient External Record Review External record reviewed: Outpatient record Prescription Management I considered prescription management with: Antibiotic Discharge Plan Discharge Clinical Impression: Eye foreign body Qualifiers: Encounter type: initial encounter Laterality: right Qualified Code(s): T15.91XA - Foreign body on external eye, part unspecified, right eye, initial encounter Patient Disposition: Home, Self-Care Instructions: Eye Foreign Body (ED) Additional Instructions: you do have a foreign body on exam on the pterygium but not in the cornea. I did not see abrasions during your ED visit please see eye doctor LISANDRO today there [place] an eye doctor in the [place] that [place] patients this needs to be removed please also call [facility] in [place] to assess your hand skin issues Prescriptions: New erythromycin 5 mg/gram (0.5 %) ointment 0.5 inch ophthalmic (eye) BID 5 Days Qty: 3.5 0RF No Action naloxone [Narcan] 4 mg/actuation spray,non-aerosol 4 mg intranasal Q2M PRN (Reason: opioid overdose) Qty: 2 0RF Rx Instructions: spray 1 dose into ONE nostril; alternate nostrils w each dose until help arrives permethrin 5 % cream 1 appl topical Q14D Qty: 60 0RF Rx Instructions: apply second treatment 14 days after first treatment if live lice remain cephalexin 500 mg capsule 500 mg PO QID Qty: 28 0RF doxycycline hyclate 100 mg capsule 100 mg PO BID Qty: 14 0RF permethrin 5 % cream 1 appl topical ONCE 1 Days Qty: 60 0RF permethrin 5 % cream 1 appl topical Q14D Qty: 60 0RF Rx Instructions: apply second treatment 9 days diphenhydramine HCl [Benadryl] 25 mg capsule 25 mg PO TID PRN (Reason: itching) Qty: 20 0RF doxycycline hyclate 100 mg capsule 100 mg PO BID 10 Days Qty: 20 0RF cephalexin 500 mg capsule 500 mg PO BID 10 Days Qty: 20 0RF hydroxyzine pamoate [Vistaril] 25 mg capsule 25 mg PO TID PRN (Reason: itching) Qty: 30 0RF clonidine HCl 0.1 mg tablet 0.1 mg PO TID 7 Days Qty: 21 0RF Interventions: ED Discharge Assessment Last Done: 05/28/25 11:32 Discharge Date/Time: 05/28/25 11:35 Print Language: Portuguese
[2025-05-28] MEDS: Diphth,Pertus(ACell),Tet Adult 0.5 ML SYRINGE IM (11:31)
[2025-05-28 11:32] VITALS: BP 150/94; PULSE 43; RESP 18; TEMP 36.8; O2SAT 97
--- OUTSIDE RECORDS SUMMARY | 2025-05-28 11:34 | XMS_ITS | Clinical Summary ---
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 Name Role Phone Unavailable Primary Care Provider Unavailabl e Social History Tobacco Use Types Packs/Day Years Used Date Smoking Tobacco: Never Assessed Sex and Gender Information Value Date Recorded Sex Assigned at Not on file Legal Sex Male 10:45 AM EST Gender Identity Not on file Sexual Orientation Not on file Plan of Treatment Health Maintenance Due Date Last Done Comments DTaP,Tdap,and Td Vaccines (1 - Tdap) 1993 Hepatitis B Vaccines (1 of 3 - 19+ 3-dose series) 1993 Depression Screening 08/30/2024 Pneumococcal Vaccine: 50+ Ye ars (1 of 1 - PCV) 2024 Zoster Vaccines (1 of 2) 2024 COVID-19 Vaccine (1 - 2023-2 5 season) 2025 Influenza Vaccine (#1) 2025 RSV Immunization Adult Patie nts (1 - 1-dose 75+ series) 2049 HIB Vaccines Aged Out No longer eligi ble based on patient's age to complete this topic HPV Vaccines Aged Out No longer eligi ble based on patient's age to complete this topic Hepatitis A Vaccines Aged Out No long er eligible based on patient's age to complete this topic IPV Vaccines Aged Out No longer eligi ble based on patient's age to complete this topic MMR Vaccines Aged Out No longer eligi ble based on patient's age to complete this topic Meningococcal ACWY Vaccine Aged Out N o longer eligible based on patient's age to complete this topic Meningococcal B Vaccine Aged Out No l onger eligible based on patient's age to complete this topic RSV Immunization Patients Un viviana 20 months Aged Out No longer eligible b ased on patient's age to complete this topic Varicella Vaccines Aged Out No longer eligible based on patient's age to complete this topic
== END 2025-05-28 11:35 | disposition home or self-care (01) ==
PROVIDERS: Emergency Provider Emergency Medicine
DX: T15.91XA Foreign body on external eye, part unspecified, right eye, initial encounter (principal); H57.11 Ocular pain, right eye; W44.H0XA Other sharp object unspecified, entering into or through a natural orifice, initial encounter; Y93.9 Activity, unspecified; Y92.9 Unspecified place or not applicable; Y99.8 Other external cause status; Z23 Encounter for immunization
CPT/HCPCS: 90471; 90715; 99282; 99284

== ENCOUNTER 2025-06-26 10:24 | Outpatient (AMB) | payer OTHER, SELFPAY ==
[2025-06-26 10:27] VITALS: BP 160/68; PULSE 46; RESP 18; TEMP 36.2; O2SAT 97; BMI 28.3
--- NOTE | 2025-06-26 10:27 | A.OFFPC_ITS ---
Vital Signs 06/26/25 10:27 Height 5 ft 9 in Weight 191 lb 8 oz BMI 28.3 BP 160/68 H Blood Pressure Location Lt brachial Position Sitting Respiration 18 Pulse 46 L Pulse Source Pulse Oximeter Temp 97.1 F Temp Source Temporal Artery Scan Pulse Oximetry (%) 97 Oxygen Delivery Method Room Air Intake Visit Reasons: establish care Forklift Technician Required: No Accompanied by: Self / Same As Patient Allergies shellfish derived (SHELLFISH DERIVED) Allergy (Unknown, Verified 06/26/25 11:00) SWELLING Medication List - Last Reconciled 06/26/25 by CARRILLO Hunt No Known Home Meds Tobacco use date assessed: 06/26/25 Dental Screening Dental Screen Date: 06/26/25 Did you have a dental visit in the last 12 months?: Yes Did you have a dental problem in the last 6 months where you did not have access to dental care?: No Was dental information given to patient?: Patient has dentist HPI establish care HPI Details Previous PCP: Dr. Rodriguez Last visit: about 3 years Last PE: same Specialist: no OBGYN:n/a Past medical history: Medications: Family HX: ALS maternal skip mother, father has heart disease Problem: The patient is a 49-year-old male presenting to [facility], with primary concerns of high blood pressure and a low heart rate. He reports that his blood pressure is consistently high, while his heart rate is usually low, sometimes in the 40s. He was previously on blood pressure medication, which he believes was lisinopril, but he discontinued it because it made him feel weird and caused muscle relaxation. He denies associated dizziness or chest pain. The patient has a history of opioid addiction which began after he was prescribed OxyContin and Percocet for an ACL reconstruction. He states this addiction lasted for about 10 years, leading to multiple rehab admissions, but he has been clean for the last three to four years. During a period of incarceration, he got a tattoo and later tested positive for hepatitis C with a very low viral load; subsequent testing was reportedly negative. The patient reports significant anxiety and depression, with constant worry, racing thoughts, frequent crying, and regrets about his past. This has resulted in chronic insomnia, which is also compounded by his need to care for his 21-year-old blind dog throughout the night. He has a history of a prior medication trial for his mental health that he stopped due to suicidal ideation. Additional complaints include a recurring, thick, painless skin lesion on his knuckles that he periodically cuts off, only for it to grow back rapidly. He also reports dysphagia with certain foods, like rice, getting stuck in his throat for the past several years. About two weeks ago, he experienced a sudden pop and severe pain in his lower right back, which has since become a persistent, dull ache in the same area and into his buttock, without radiation down the leg. Family history is significant for half of his mother's family dying from ALS. His father, with whom he is not close, has a history of heart problems and required cardiac bypass surgery. [facility] Medical History Drug abuse Depression OCD (obsessive compulsive disorder) Surgical History History of anterior cruciate ligament surgery Family History Mother Drinking problem Maternal Aunt ALS (amyotrophic lateral sclerosis) Maternal Grandmother ALS (amyotrophic lateral sclerosis) Maternal Grandmother ALS (amyotrophic lateral sclerosis) Father Heart disease Other Mental health disorder Substance use disorder Social History Household Members: None Housing: Other 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 Do you presently have visiting nurse or other home services: No Alcohol intake: never Patient Tobacco Use Status: Never used Tobacco e-Cigarette/Vaping Use: Never Used Second Hand Smoke Exposure: Yes Substance Use Type: Crack/Cocaine and Heroin Advance Directives Date on File: 05/02/21 service: No Current occupational status: unemployed Current occupational exposures/hazards: No Cognitive needs: No Hearing needs: No Vision needs: No Questionnaire PHQ-9 Over the last 2 weeks, how often have you been bothered by any of the following problems? 1. Little interest or pleasure in doing things: more than half the days 2. Feeling down, depressed, or hopeless: more than half the days 3. Trouble falling or staying asleep, or sleeping too much: more than half the days 4. Feeling tired or having little energy: more than half the days 5. Poor appetite or overeating: not at all 6. Feeling bad about yourself - or that you are a failure or have let yourself or your family down: more than half the days 7. Trouble concentrating on things, such as reading the newspaper or watching television: not at all 8. Moving or speaking so slowly that other people could have noticed. Or the opposite - being so fidgety or restless that you have been moving around a lot more than usual: not at all 9. Thoughts that you would be better off or of hurting yourself in some way: not at all Total score: 10 Depression Screening Interpretation: Positive Depression Screening Done: Yes 27633 - PHQ-9 Billing: Yes Source: Developed by Drs. Nate Manjarrez, Isaura Hernandez, Jamie Almazan and colleagues, with an educational pee from [employer]. Thrive Questionnaire Date Thrive assessed: 12/02/21 I am a: Patient What is your living situation today?: I have a steady place to live Within the past 12 months, did the food you bought not last and you didn't have the money to get more?: Never true Within the past 12 months, did you worry whether your food would run out before you got money to buy more?: Never true Do you have trouble paying for medicines?: No Do you have trouble getting transportation to medical appointments?: No Do you have trouble paying your heating and electricity bill?: No Do you have trouble taking care of your child, family member or friend?: No Do you have trouble with day-to-day activities such as bathing, preparing meals, shopping, managing finances, etc.?: No Are you currently unemployed and looking for a job?: No Are you interested in more education?: No Please select the resources that you would like help with: None Currently or been in a relationship where the following occur: No concerns repor nisa THRIVE Score: 0 AUDIT C Alcohol Use Questionnaire (AUDIT-C) 1. How often do you have a drink containing alcohol?: Monthly or less 2. How many drinks containing alcohol do you have on a typical day when you are drinking?: 1 or 2 3. How often do you have six or more drinks on one occasion?: Never Total Score: 1 TOSHA-7 AMB Questionnaire TOSHA-7 Date TOSHA - 7 assessed: 12/02/21 Feeling nervous, anxious, or on edge: 0 = Not at all Not being able to stop or control worryin = More than half the days Worrying too much about different things: 2 = More than half the days Trouble relaxin = More than half the days Being so restless that it is hard to sit still: 2 = More than half the days Becoming easily annoyed or irritable: 2 = More than half the days Feeling afraid as if something awful might happen: 0 = Not at all Total TOSHA-7 score (0-4 normal; 5-9 mild; 10-14 moderate; 15-21 severe): 10 Source: Developed by Drs. Nate Manjarrez, Isaura Hernandez, Jamie Almazan and colleagues, with an educational pee from [employer]. TOSHA-7 Assessment Billing TOSHA-7 Assessment Tool: TOSHA-7 Assessment 50850 Review of Systems Const Denies headache(s) Eyes Denies loss of vision ENT Reports dysphagia, Denies vertigo, Denies dizziness, Denies headache(s) and Denies sore throat Card Denies chest pain, Denies leg edema and Denies lightheadedness Resp Denies cough, Denies hemoptysis and Denies wheezing GI Denies abdominal pain, Denies melena, Denies constipation, Reports dysphagia, Denies diarrhea and Denies vomiting Denies dysuria, Denies urinary frequency and Denies urinary urgency Musc Denies arthralgias, Reports joint swelling (Swollen knuckles), Denies numbness and Denies tingling Skin/Breast Reports erythema (Knuckles, bilateral hands) and Reports skin swelling (Knuckles, bilateral hands) Neuro Denies Abnormal speech present, Denies behavioral changes, Denies vertigo, Denies dizziness, Denies headache(s), Denies loss of vision, Denies memory loss, Denies numbness and Denies tingling Psych Reports anxiety, Denies behavioral changes, Reports depression, Reports difficulty concentrating, Denies memory loss and Denies panic attacks Russell/Lymph Denies easy bleeding and Denies easy bruising Aller/Immun Denies wheezing Physical exam (Primary Care) Vital Signs: Last Vital Signs Temp 97.1 F 06/26/25 10:27 Pulse 46 L 06/26/25 10:27 Resp 18 06/26/25 10:27 BP 160/68 H 06/26/25 10:27 Pulse Ox 97 06/26/25 10:27 Oxygen Delivery Method Room Air 06/26/25 10:27 BMI result Body Mass Index 28.3 Tobacco/Smoking Status: Tobacco use Status Tobacco use date assessed 06/26/25 06/26/25 10:33 Patient Tobacco Use Status Never used Tobacco 06/26/25 10:33 e-Cigarette/Vaping Use Never Used 06/26/25 10:33 PHQ-9: PHQ-9 Score PHQ-9: Total score 10 06/26/25 10:54 Depression Screening Interpretation: Positive Thrive Assessment: Date of Thrive Assessment Date Thrive assessed 12/02/21 06/26/25 10:33 Currently or been in a relationship where the following occur: No concerns reported Const General: healthy appearing, no acute distress, alert and awake Nutritional Appearance: well nourished Orientation/consciousness: oriented to person, oriented to place and oriented to time HENMT Ears: TM's normal bilaterally General nose exam: Normal nasal mucous membranes and turbinates present Eyes Conjunctivae: conjunctivae normal Sclerae: sclerae normal Pupils: Equal, round and reactive pupils present Neck Neck: Yes no lymphadenopathy and Yes no JVD Thyroid: Thyroid normal Carotids: no bruits Resp Effort & Inspection: normal respiratory effort and not tachypneic Auscultation: no crackles, no rales, no rhonchi and no wheezes Cardio Rate: regular rate Rhythm: regular rhythm Heart sounds: no murmurs and normal S1 and S2 GI Palpation (GI): Soft to palpation, nontender, no hepatomegaly and no splenomegal y Auscultation: normal bowel sounds General: Yes no CVA tenderness Back/Spine/Pelvis Back: no CVA tenderness Skin General skin exam: no rashes or lesions noted and dry skin Neuro General: oriented to person, oriented to place and oriented to time Cranial nerves: Yes Equal, round and reactive pupils present Speech: No Abnormal speech present Gait exam (Neuro): Normal gait present Motor exam (neuro): no tremor noted Extrem Right upper extremity: full ROM and Extremity exam: right hand (swollen and discolored knuckles with pain-skin lichenification) Left upper extremity: full ROM and hand (swollen and discolored knuckles with pain-skin lichenification) Right lower extremity: full ROM; no edema Left lower extremity: full ROM; no edema Psych Mental Status: mental status grossly normal Speech and movement: Normal speech and movement present Affect: normal affect Attitude: cooperative Thought process: Normal thought process present Coding Level of Care Code New Pt Level 4 (62086) Diagnoses Anxiety and depression F41.9; F32.A Opioid dependence with opioid-induced disorder F11.29 Substance use status: with unspecified opioid-induced disorder Essential hypertension I10 Bradycardia R00.1 Dysphagia, unspecified type R13.10 Dysphagia type: unspecified Hepatitis C antibody positive in blood R76.8 Lichenified rash L28.0 Sleeping difficulty G47.9 Additional Codes TOSHA-7 Assessment Billing - TOSHA-7 Assessment Tool: TOSHA-7 Assessment 35926 ([id number]) PHQ-9 - 54980 - PHQ-9 Billing: Yes ([id number]) Time Spent (min) 41 Assessment & Plan Assessment & Plan (1) Anxiety and depression: Code(s): F41.9 - Anxiety disorder, unspecified; F32.A - Depression, unspecified Category: Medical Plan: The patient reports significant symptoms of depression and anxiety, including constant worry, racing thoughts, and insomnia, which are impacting his quality of life and contributing to his hypertension. A referral to a therapist and a psychiatrist is strongly recommended to address these issues comprehensively. The importance of specialist care was emphasized, especially considering his past negative experience with a psychiatric medication that caused suicidal ideation. (2) Opiate addiction: Comment: discussion had treatment options Suboxone counseling labs Code(s): F11.20 - Opioid dependence, uncomplicated Category: Medical Qualifiers: Substance use status: with unspecified opioid-induced disorder Qualified Code(s): F11.29 - Opioid dependence with unspecified opioid-induced disorder Plan: The patient reports that has been in remission for a while now. Encouraged a continuation of avoiding opioids or alike substances. (3) Essential hypertension: Code(s): I10 - Essential (primary) hypertension Category: Medical Plan: Elevated blood pressure in office. Reports that he was started on lisinopril in the past however it made him feel different. Explained to the patient that his blood pressure noted to be constantly elevated and once his blood pressure starts coming down he is going to feel somewhat different until his body is adjusted. Explained to the patient that he needs to start checking his blood pressure instead of going by a feeling. The patient will purchase a blood pressure machine to start monitoring this. Lisinopril 5 mg ordered daily. Reinforced low-salt diet. Return in 4 weeks for blood pressure check, nurse visit (4) Bradycardia: Code(s): R00.1 - Bradycardia, unspecified Category: Medical Plan: The patient reports chronically elevated blood pressure with a paradoxically low heart rate, sometimes in the 40s. Stress and anxiety are considered significant contributing factors. An EKG will be performed to evaluate the heart's electrical activity, and an echocardiogram is planned to assess cardiac structure and function, particularly given his symptom of dyspnea on exertion. Echo ordered as well to further evaluate. Lisinopril 5 mg daily is prescribed, with education provided that he may feel funny as his body adjusts to a lower blood pressure. The patient was instructed to acquire a home blood pressure monitor and check readings in the morning and evening. Lifestyle modifications including a low-salt diet and increased exercise were recommended. A nurse visit for a blood pressure check is scheduled for 4 weeks, with a follow-up appointment with the provider in 7 weeks. (5) Dysphagia: Code(s): R13.10 - Dysphagia, unspecified Category: Medical Qualifiers: Dysphagia type: unspecified Qualified Code(s): R13.10 - Dysphagia, unspecified Plan: The patient reports a several-year history of dysphagia, specifically choking on foods like rice, which is an atypical complaint for his age. A swallow evaluation has been ordered to investigate the cause of his symptoms. (6) Hepatitis C antibody positive in blood: Comment: October 2021 Check genotype,fibrosis score Code(s): R76.8 - Other specified abnormal immunological findings in serum Category: Medical Plan: The patient has a history of testing positive for hepatitis C while incarcerated, though he was told his viral load was low and a subsequent test was negative. To clarify his status and assess for any liver damage, fasting blood work, including a hepatitis panel, and an abdominal ultrasound will be performed. 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 No pain or warmth. Reports that this comes and goes and at times he shaves skin off then it grows back. Will refer the patient to dermatology. (8) Sleeping difficulty: Code(s): G47.9 - Sleep disorder, unspecified Category: Medical Plan: The patient difficulty sleeping is related to him unable to turn his mind off. Discussed with the patient the benefits of psychotherapy. We will put in a referral to further evaluate the patient condition. Orders: Orders UA CC w/rflx Micro + Cult 06/26/25.20 - Opioid dependence, uncomplicated, F32.A - Depression, unspecified, F41.9 - Anxiety disorder, unspecified, G47.9 - Sleep disorder, unspecified, I10 - Essential (primary) hypertension, R76.8 - Other specified abnormal immunological findings in serum Vitamin D 25-OH Total 06/26/25.20 - Opioid dependence, uncomplicated, F32.A - Depression, unspecified, F41.9 - Anxiety disorder, unspecified, G47.9 - Sleep disorder, unspecified, I10 - Essential (primary) hypertension, R76.8 - Other specified abnormal immunological findings in serum US abdomen complete 06/26/25 R10.11 - Right upper quadrant pain FL barium swallow 06/26/25 R13.10 - Dysphagia, unspecified Complete Blood Count Auto Diff 06/26/25 F1.20 - Opioid dependence, uncomplicated, F32.A - Depression, unspecified, F41.9 - Anxiety disorder, unspecified, G47.9 - Sleep disorder, unspecified, I10 - Essential (primary) hypertension, R76.8 - Other specified abnormal immunological findings in serum Comprehensive [place]. Panel Fast 06/26/25 F1.20 - Opioid dependence, uncomplicated, F32.A - Depression, unspecified, F41.9 - Anxiety disorder, unspecified, G47.9 - Sleep disorder, unspecified, I10 - Essential (primary) hypertension, R76.8 - Other specified abnormal immunological findings in serum Lipid Panel 06/26/25 F1.20 - Opioid dependence, uncomplicated, F32.A - Depression, unspecified, F41.9 - Anxiety disorder, unspecified, G47.9 - Sleep disorder, unspecified, I10 - Essential (primary) hypertension, R76.8 - Other specified abnormal immunological findings in serum TSH reflex Free T4 06/26/25 F1.20 - Opioid dependence, uncomplicated, F32.A - Depression, unspecified, F41.9 - Anxiety disorder, unspecified, G47.9 - Sleep disorder, unspecified, I10 - Essential (primary) hypertension, R76.8 - Other specified abnormal immunological findings in serum Hemoglobin A1c 06/26/25 F11.20 - Opioid dependence, uncomplicated, F32.A - Depression, unspecified, F41.9 - Anxiety disorder, unspecified, G47.9 - Sleep disorder, unspecified, I10 - Essential (primary) hypertension, R76.8 - Other specified abnormal immunological findings in serum Hepatitis A,B,C Profile 06/26/25 F11.20 - Opioid dependence, uncomplicated, F32.A - Depression, unspecified, F41.9 - Anxiety disorder, unspecified, G47.9 - Sleep disorder, unspecified, I10 - Essential (primary) hypertension, R76.8 - Other specified abnormal immunological findings in serum ECG 12 lead EKG 06/26/25 R00.1 - Bradycardia, unspecified [place] echo transthoracic complete Today R00.1 - Bradycardia, unspecified Referrals Dermatology Referral 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
--- OUTSIDE RECORDS SUMMARY | 2025-06-26 12:47 | XMS_ITS | Clinical Summary ---
[facility] Address [address] [place] [address] Care Team Providers Care Welder Apprentice Combination Name Role Phone Unavailable Primary Care Provider [...]
== END 2025-06-26 11:44 | disposition home or self-care (01) ==
LOC: HO.HMCH 10:25
DX: F41.9 Anxiety disorder, unspecified (principal); F32.A Depression, unspecified; F11.29 Opioid dependence with unspecified opioid-induced disorder; I10 Essential (primary) hypertension; R00.1 Bradycardia, unspecified; R13.10 Dysphagia, unspecified; R76.89 Other specified abnormal immunological findings in serum; L28.0 Lichen simplex chronicus; G47.9 Sleep disorder, unspecified

== ENCOUNTER → 2025-06-26 10:24 | Outpatient (REF) | payer OTHER, SELFPAY ==
--- NOTE | 2025-06-26 12:01 | ECG_ITS ---
Test Reason : BRADYCARDIA Blood Pressure : */* mmHG Vent. Rate : 39 BPM Atrial Rate : 39 BPM P-R Int : 156 ms QRS Dur : 90 ms QT Int : 462 ms P-R-T Axes : 47 70 48 degrees QTcB Int : 371 ms Marked sinus bradycardia Abnormal ECG When compared with ECG of 04-Dec-2021 12:50, Vent. rate has decreased by 58 bpm Nonspecific T wave abnormality no longer evident in Inferior leads Nonspecific T wave abnormality no longer evident in Anterolateral leads QT has shortened Referred By: Italo Camejo Electronically Signed By: JAKOB JUAREZ
== END ==
LOC: HO.CARD 10:24
DX: I10 Essential (primary) hypertension (principal); R00.1 Bradycardia, unspecified; F41.9 Anxiety disorder, unspecified; F32.A Depression, unspecified; F11.29 Opioid dependence with unspecified opioid-induced disorder; R13.10 Dysphagia, unspecified; G47.9 Sleep disorder, unspecified
CPT/HCPCS: 93005; 96127; 99202

== ENCOUNTER → 2025-06-26 12:01 | Outpatient (BNV) | payer OTHER, SELFPAY | PROVIDERS: Visit Provider Internal Medicine | DX: R00.1 Bradycardia, unspecified (principal) | CPT/HCPCS: 93010 ==

== ENCOUNTER 2025-07-04 06:01 | Outpatient (REF) | payer OTHER, SELFPAY ==
--- NOTE | ~2025-07-04 | US_ITS ---
CLINICAL HISTORY: R10.11 - Right upper quadrant pain US abdomen limited Comparison: None provided Findings: The visualized pancreas head, aorta, and inferior vena cava are unremarkable. The liver is normal in size, right lobe length is 17.2 cm. Diffusely increased echogenicity of the liver parenchyma. No discrete lesion is visualized in the imaged liver. No intrahepatic bile duct dilatation. Proximal common duct is mildly dilated and measures 7 mm in diameter, distal CBD is obscured by bowel gas. Dilated gallbladder, no stone or sludge, no wall thickening, negative sonographic Hoffmann's sign. Main portal vein shows antegrade flow. Right kidney is unremarkable, 10.1 cm in length. No free fluid in the right upper quadrant of the abdomen. Impression: 1. Dilated gallbladder and proximal common duct, distal CBD is not seen, concerning for distal obstructive process, recommend correlation with LFT and MRCP can be helpful for further evaluation. 2. Echogenic liver parenchyma is nonspecific, commonly seen in steatosis or chronic hepatitis. This document has been electronically signed by: Lara Traylor MD on 07/04/2025 14:49:15
--- OUTSIDE RECORDS SUMMARY | 2025-07-04 06:05 | XMS_ITS | Clinical Summary ---
[facility] Address [address] [place] [address] Care Team Providers Care Learning And Development Director Name Role Phone Unavailable Primary Care Provider [...]
[2025-07-04 07:35] LABS: Hematocrit 48.4 % (42.0-52.0); Hemoglobin 16.5 g/dl (14.0-18.0); Imm Gran Abs Auto 0.02 X10*3/uL (0.00-0.03); Imm Gran Pct Auto 0.4 % (0.0-0.4); Lymphocytes Absolute Auto 1.6 X10*3/uL (1.2-4.9); MANUAL DIFF FLAG SCAN; Mean Corpuscular HGB Conc 34.1 g/dl (31.0-36.0); Mean Corpuscular Hemoglobin 29.0 pg (27.0-33.0); Mean Corpuscular Volume 85.1 fL (80.0-98.0); NRBC Abs Auto 0.000 X10*3/uL (0.0-0.012); NRBC Pct Auto 0.0 /100WBC (0.0-0.2); PLT CLUMP 1; Red Blood Count 5.69 X10*6/uL (4.60-5.80); SCAN SMEAR FLAG 1
[2025-07-04 07:49] LABS: Alanine Aminotransferase 87 U/L (0-40); Albumin Level 4.5 g/dL (3.5-5.0); Alkaline Phosphatase 103 U/L (39-117); Anion Gap 13 (12-20); Aspartate Amino Transferase 71 U/L (5-37); Blood Urea Nitrogen 15 mg/dL (9-16); Calcium 8.8 mg/dL (8.4-10.2); Carbon Dioxide 27 mmol/L (22-29); Chloride 105 mmol/L (96-108); Cholesterol 146 mg/dL (<200); Estimated Glomerular Filt Rate > 60; HDL Cholesterol 35 mg/dL (>40); Potassium 4.8 mmol/L (3.3-5.1); Sodium 140 mmol/L (135-145); Total Protein 7.4 g/dL (6.5-8.0); Triglycerides 93 mg/dL (<150)
[2025-07-04 08:14] LABS: Appearance Urine Clear; Glucose Urine UA Negative (Negative); PH 7.5 (5.0-9.0); Specific Gravity - Urine 1.015 (1.005-1.025)
[2025-07-04 08:21] LABS: HBS Num1 0.21 mIU/mL (0-7.99); HBc Num1 0.07 S/CO (0.00-0.79); HBsAGNum1 0.43 S/CO (0.00-0.99); Hepatitis A Antibody IgM 0.15 Index (0-0.79); Hepatitis B Surface Antigen Negative (Negative); ~HepC Num1 9.64 S/CO (0.00-0.79); ~Hepatitis A Antibody IgM Nonreactive (Nonreactive); ~Hepatitis B Surface Antibody NONREACTIVE (Nonreactive); ~Hepatitis C Antibody Reactive (Nonreactive)
[2025-07-04 08:45] LABS: Platelet Count 146 X10*3/uL (160-400); White Blood Count 5.6 X10*3/uL (4.8-10.8)
== END 2025-07-04 06:02 | disposition home or self-care (01) ==
LOC: HO.HMGCX 06:01
DX: Z11.59 Encounter for screening for other viral diseases (principal); F41.9 Anxiety disorder, unspecified; F32.A Depression, unspecified; F11.20 Opioid dependence, uncomplicated; I10 Essential (primary) hypertension; G47.9 Sleep disorder, unspecified; R10.11 Right upper quadrant pain; R76.89 Other specified abnormal immunological findings in serum
CPT/HCPCS: 36415; 76705; 80053; 80061; 81003; 82306; 83036; 84443; 85025; 86704; 86706; 86709; 86803; 87340

== ENCOUNTER → 2025-07-04 09:36 | Outpatient (BNV) | payer OTHER, SELFPAY | PROVIDERS: Visit Provider Radiology Diagnostic Radiology | DX: K82.8 Other specified diseases of gallbladder (principal) | CPT/HCPCS: 76705 ==

== ENCOUNTER → 2025-07-24 14:54 | Outpatient (REF) | payer OTHER, SELFPAY ==
--- NOTE | 2025-07-24 14:56 | CA_ITS ---
Transthoracic Echocardiogram Patient (Last, First, Middle): Timothy Abdi, Gender: M Date of : 1975 Age: 49 Procedure Date: 07/24/2025 Procedure Type: Transthoracic Echocardiogram Location: OP Height: 175.26 cm Weight: 86.64 kg BSA: 2.03 m2 Heart Rate: 54 bpm BP: 160 / 62 mmHg Manager Nicu: SB Referring MD: Italo KIMBLEP-C Symptoms: R00.1 - Bradycardia, unspecified Study Quality: Adequate ECG Rhythm: Bradycardia Conclusions: - The left ventricular systolic function is normal. The calculated ejection fraction is 66% by biplane method. - No obvious valvular pathology seen on this study. Findings Left Ventricle Normal left ventricular cavity size. There is normal left ventricular wall thickness. The left ventricular systolic function is normal. The calculated ejection fraction is 66% by biplane method. Diastolic function is normal for age. Right Ventricle Normal right ventricular cavity size and systolic function. Atria Both atria are normal in size. Aortic Valve There is a normal trileaflet aortic valve. There is no aortic valve stenosis. There is no aortic valve regurgitation. Mitral Valve The mitral valve appears normal. There is trace mitral valve regurgitation. There is no mitral valve stenosis. Pulmonic Valve There is trace pulmonic valve regurgitation. Tricuspid Valve Normal tricuspid valve structure. There is no tricuspid valve regurgitation. There is no evidence of pulmonary hypertension. Great Vessels The asc aorta is normal in size. Venous The inferior vena cava is normal in size and collapses greater than 50% with inspiration. Pericardium/Pleural There is no evidence of pericardial effusion. Prior Study Comparison No prior study available for comparison. Recommendations, Care & Conclusions No obvious valvular pathology seen on this study. Measurements 2D Linear Measurements IVSd: 0.63 0.6-0.9/0.6-1.0 cm LVIDd: 5.18 3.9-5.3/4.2-5.9 cm LVIDd Index: 2.55 2.4-3.2/2.2-3.1 cm/m2 LVIDs: 3.34 2.0-3.6 cm LVPWd: 0.75 0.7-1.1 cm LV Mass: 149.44 67-162/88-224 g LV Mass Index: 73.62 43-95/49-115 g/m2 LVOT Diam: 2.60 3.0+(-)1.3 cm 2D Systolic Function EF 4C: 61.40 >55% EF 2C: 70.60 >55% EF BiP: 65.80 >55% Mitral Valve MV Pk E: 0.91 MV PK A: 0.39 MV Decel Time: 248.00 E/A: 2.40 E'Lateral: 11.90 E'Medial: 9.68 E/E' Med: 9.40 E/E' Lat: 7.70 PHT: 73.00 MVA PHT: 3.[address] [place]: 3.68 Aortic Valve AoV Pk Bib: 1.18 AoV Pk Grad: 6.00 BRIGITTE: 4.57 LVOT LVOT Pk Bib: 1.06 LVOT Mn Bib: 0.75 LVOT VTI: 0.27 LVOT Pk Grad: 4.00 LVOT Mn Grad: 3.00 LVOT Diam: 2.60 LVOT Area: 5.31 Diastolic Function MV Pk E: 0.91 MV Pk A: 0.39 E/A: 2.40 E'Medial: 9.68 E/E' Med: 9.40 E' Laterial: 11.90 E/E' Lat: 7.70 Right Ventricle TAPSE (mm): 26.90 TVS' Bib: 14.90 Tricuspid Valve TR Pk Bib: 2.14 TR Pk Grad: 18.00 RA Press: 3.00 RVSP: 21.00 Great Vessels Aorta Sinus of Valsalva: 3.40 2.0-3.5 cm Ao Asc: 3.40 2.1-3.4 cm Ao Arch: 3.10 Pulmonary Veins Pulm Vein S/D 0.80 Pulmonary Valve PV Pk Bib: 1.25 Peak PV Grad: 6.00 AK Pk Bib: 1.49 Updated in Other Vendor System with Status of Final Braulio Kendrick MD electronically signed on 07/25/2025 9:24:07 AM with status of Final
--- OUTSIDE RECORDS SUMMARY | 2025-07-24 18:40 | XMS_ITS | Clinical Summary ---
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 Name Role Phone Unavailable Primary Care Provider Unavailabl e Social History Tobacco Use Types Packs/Day Years Used Date Smoking Tobacco: Never Assessed Sex and Gender Information Value Date Recorded Sex Assigned at Not on file Legal Sex Male 10:45 AM EST Gender Identity Not on file Sexual Orientation Not on file Plan of Treatment Health Maintenance Due Date Last Done Comments Hepatitis B Vaccines (1 of 3 - 19+ 3-dose series) 1993 Depression Screening 08/30/2024 Pneumococcal Vaccine: 50+ Ye ars (1 of 1 - PCV) 2024 Zoster Vaccines (1 of 2) 2024 COVID-19 Vaccine (1 - 2024-2 6 season) 2025 Influenza Vaccine (#1) 2025 DTaP,Tdap,and Td Vaccines (2 - Td or Tdap) 04/04/2033 04/04/2023 RSV Immunization Adult Patie nts (1 - [...]
== END ==
LOC: HO.CARD 14:54
DX: R00.1 Bradycardia, unspecified (principal)
CPT/HCPCS: 93306

== ENCOUNTER → 2025-07-24 14:56 | Outpatient (BNV) | payer OTHER, SELFPAY | PROVIDERS: Visit Provider Internal Medicine | DX: R00.1 Bradycardia, unspecified (principal) | CPT/HCPCS: 93306 ==

== ENCOUNTER 2025-08-14 16:09 | Outpatient (AMB) | payer OTHER, SELFPAY ==
[2025-08-14 16:20] VITALS: BP 174/80; PULSE 49; RESP 18; O2SAT 97; BMI 27.4
--- NOTE | 2025-08-14 16:20 | MHC.PC.OV ---
Vital Signs 08/14/25 16:20 Height 5 ft 9 in Weight 185 lb 4 oz BMI 27.4 BP 174/80 H Blood Pressure Location Lt brachial Position Sitting Respiration 18 Pulse 49 L Pulse Source Pulse Oximeter Temp Source Temporal Artery Scan Pulse Oximetry (%) 97 Oxygen Delivery Method Room Air Intake Visit Reasons: annual exam Tire Balancer Required: No Accompanied by: Self / Same As Patient Allergies shellfish derived (SHELLFISH DERIVED) Allergy (Unknown, Verified 08/18/25 15:01) SWELLING Medication List - Last Reconciled 08/18/25 by CARRILLO Hunt lisinopril 5 mg PO DAILY Tobacco use date assessed: 08/14/25 Dental Screening Dental Screen Date: 08/14/25 Did you have a dental visit in the last 12 months?: Yes Did you have a dental problem in the last 6 months where you did not have access to dental care?: No Was dental information given to patient?: Patient has dentist HPI annual exam HPI Details Dentist: up to date Eye: has appt Snellen: Right: Left: Corrected vision: blurry vision, appointment is far out STI screening: Colonoscopy: GI rferral placed Pap Smer:n/a PHQ-9: Flu: does not usually take this COVID: no Tdap:2024 Diet: regular Exercise: Working out every mornings, pushup, situps and pullups The patient is a 49 year old male presenting for follow-up on lab results and management of chronic conditions. He has a history of a dilated gallbladder, which is thought to be contributing to his slightly elevated liver enzymes. The patient has a history of hepatitis C, diagnosed a long time ago, for which he has never received treatment. He reports getting a tattoo while in long term, which may be the source of the infection. Lab work from 2021 confirmed the virus was still present. The patient has a history of hypertension but has not been taking his prescribed blood pressure medication, and his current reading is high at 174/80 mmHg. Regarding health maintenance, he had his last colonoscopy over 10 years ago, around the age of 34 or 39. He reports a dental visit 3 days ago and has an eye exam scheduled. He has not received the COVID vaccine. His CBC is normal. Labs also show a low vitamin D level. Health Maintenance The patient is due for a screening colonoscopy, as his last procedure was over 10 years ago. This will be coordinated with the GI referral. Discussed immunizations, including the flu and COVID-19 vaccines. Social History - Substance Use: Reports a history of street drug use for years, but is not currently using. - Incarceration History: Reports a history of being in long term, where he received a tattoo. - Exercise: Reports being on his feet six days a week for work, which serves as his primary form of exercise. - Sleep: Reports poor sleep, as he wakes up every two hours to take his dog outside. - Living Situation: Has a pet dog that provides significant emotional support. - Mental Health: Reports history of depression and notes that his dog provides unconditional love. Results - CBC: Normal. - Chemistry: Good. - Liver Enzymes: Slightly elevated. - Hepatitis C: Positive. - Vitamin D: Low. therapist HPI Comments History of Present Illness Details History of Present Illness The patient is a 49 year old male presenting for follow-up on lab results and management of chronic conditions. He has a history of a dilated gallbladder, which is thought to be contributing to his slightly elevated liver enzymes. The patient has a history of hepatitis C, diagnosed a long time ago, for which he has never received treatment. He reports getting a tattoo while in long term, which may be the source of the infection. Lab work from 2021 confirmed the virus was still present. The patient has a history of hypertension but has not been taking his prescribed blood pressure medication, and his current reading is high at 174/80 mmHg. Regarding health maintenance, he had his last colonoscopy over 10 years ago, around the age of 34 or 39. He reports a dental visit 3 days ago and has an eye exam scheduled. He has not received the COVID vaccine. His CBC is normal. Labs also show a low vitamin D level. Health Maintenance The patient is due for a screening colonoscopy, as his last procedure was over 10 years ago. This will be coordinated with the GI referral. Discussed immunizations, including the flu and COVID-19 vaccines. Social History - Substance Use: Reports a history of street drug use for years, but is not currently using. - Incarceration History: Reports a history of being in long term, where he received a tattoo. - Exercise: Reports being on his feet six days a week for work, which serves as his primary form of exercise. - Sleep: Reports poor sleep, as he wakes up every two hours to take his dog outside. - Living Situation: Has a pet dog that provides significant emotional support. - Mental Health: Reports history of depression and notes that his dog provides unconditional love. Results - CBC: Normal. - Chemistry: Good. - Liver Enzymes: Slightly elevated. - Hepatitis C: Positive. - Vitamin D: Low. [facility] Medical History Drug abuse Depression OCD (obsessive compulsive disorder) Surgical History History of anterior cruciate ligament surgery Family History Mother Drinking problem Maternal Aunt ALS (amyotrophic lateral sclerosis) Maternal Grandmother ALS (amyotrophic lateral sclerosis) Maternal Grandmother ALS (amyotrophic lateral sclerosis) Father Heart disease Other Mental health disorder Substance use disorder Social History Household Members: None Housing: Other 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 Do you presently have visiting nurse or other home services: No Alcohol intake: never Patient Tobacco Use Status: Never used Tobacco e-Cigarette/Vaping Use: Never Used Second Hand Smoke Exposure: Yes Substance Use Type: Crack/Cocaine and Heroin Advance Directives Date on File: 05/02/21 service: No Current occupational status: unemployed Current occupational exposures/hazards: No Cognitive needs: No Hearing needs: No Vision needs: No Questionnaire PHQ-9 Over the last 2 weeks, how often have you been bothered by any of the following problems? Depression Screening Interpretation: Positive Depression Screening Done: Yes Source: Developed by Drs. Nate Manjarrez, Isaura Hernandez, Jamie Almazan and colleagues, with an educational pee from [employer]. Thrive Questionnaire Date Thrive assessed: 08/14/25 I am a: Patient What is your living situation today?: I have a steady place to live Within the past 12 months, did the food you bought not last and you didn't have the money to get more?: Never true Within the past 12 months, did you worry whether your food would run out before you got money to buy more?: Never true Do you have trouble paying for medicines?: No Do you have trouble getting transportation to medical appointments?: No Do you have trouble paying your heating and electricity bill?: No Do you have trouble taking care of your child, family member or friend?: No Do you have trouble with day-to-day activities such as bathing, preparing meals, shopping, managing finances, etc.?: No Are you currently unemployed and looking for a job?: No Are you interested in more education?: No Please select the resources that you would like help with: None Currently or been in a relationship where the following occur: No concerns reported THRIVE Score: 0 TOSHA-7 AMB Questionnaire TOSHA-7 Date TOSHA - 7 assessed: 12/02/21 Source: Developed by Drs. Nate Manjarrez, Isaura Hernandez, Jamie Almazan and colleagues, with an educational pee from [employer]. Review of Systems Narrative Review of Systems - General: Reports feeling tired and stressed. - Respiratory: Denies shortness of breath. - Cardiovascular: Denies chest pain. - Neurological: Reports insomnia, stating he does not sleep well at all. - Psychiatric: Reports history of depression. Const Denies headache(s) Eyes Denies loss of vision ENT Reports dysphagia, Denies vertigo, Denies dizziness, Denies headache(s) and Denies sore throat Card Denies chest pain, Denies leg edema and Denies lightheadedness Resp Denies cough, Denies hemoptysis and Denies wheezing GI Denies abdominal pain, Denies melena, Denies constipation, Reports dysphagia, Denies diarrhea and Denies vomiting Denies dysuria, Denies urinary frequency and Denies urinary urgency Musc Denies arthralgias, Reports joint swelling (Swollen knuckles), Denies numbness and Denies tingling Skin/Breast Reports erythema (Knuckles, bilateral hands) and Reports skin swelling (Knuckles, bilateral hands) Neuro Denies Abnormal speech present, Denies behavioral changes, Denies vertigo, Denies dizziness, Denies headache(s), Denies loss of vision, Denies memory loss, Denies numbness and Denies tingling Psych Reports anxiety, Denies behavioral changes, Reports depression, Reports difficulty concentrating, Denies memory loss and Denies panic attacks Russell/Lymph Denies easy bleeding and Denies easy bruising Aller/Immun Denies wheezing Physical exam (Primary Care) Vital Signs: Last Vital Signs Pulse 49 L 08/14/25 16:20 Resp 18 08/14/25 16:20 BP 174/80 H 08/14/25 16:20 Pulse Ox 97 08/14/25 16:20 Oxygen Delivery Method Room Air 08/14/25 16:20 BMI result Body Mass Index 27.4 Tobacco/Smoking Status: Tobacco use Status Tobacco use date assessed 08/14/25 08/14/25 16:28 Patient Tobacco Use Status Never used Tobacco 08/14/25 16:28 e-Cigarette/Vaping Use Never Used 08/14/25 16:28 Depression Screening Interpretation: Positive Thrive Assessment: Date of Thrive Assessment Date Thrive assessed 08/14/25 08/14/25 16:28 Currently or been in a relationship where the following occur: No concerns reported Narrative Physical Exam General: Cooperative, healthy appearing, comfortable, no acute distress and well developed Orientation: Patient oriented x3 Limitations: No limitations Head: Normal to inspection Ears: Hearing grossly normal bilaterally Nose: Normal external nose present Face and sinus: Normal facial exam Eyes: Appearance normal, both eyes and all related structures Neck: Normal visual inspection and Yes full ROM Respiratory: Normal respiratory effort and able to speak in complete sentences. Clear to auscultation bilaterally Cardiovascular: Regular rate and rhythm. Normal S1 and S2 GI: Gallbladder slightly swollen Skin: No rashes or lesions noted Neuro: Patient oriented x3 Extremities: Normal to inspection Const General: healthy appearing, no acute distress, alert and awake Nutritional Appearance: well nourished Orientation/consciousness: oriented to person, oriented to place and oriented to time HENWY Ears: TM's normal bilaterally General nose exam: Normal nasal mucous membranes and turbinates present Eyes Conjunctivae: conjunctivae normal Sclerae: sclerae normal Pupils: Equal, round and reactive pupils present Neck Neck: Yes no lymphadenopathy and Yes no JVD Thyroid: Thyroid normal Carotids: no bruits Resp Effort & Inspection: normal respiratory effort and not tachypneic Auscultation: no crackles, no rales, no rhonchi and no wheezes Cardio Rate: regular rate Rhythm: regular rhythm Heart sounds: no murmurs and normal S1 and S2 GI Palpation (GI): Soft to palpation, nontender, no hepatomegaly and no splenomegaly Auscultation: normal bowel sounds General: Yes no CVA tenderness Back/Spine/Pelvis Back: no CVA tenderness Skin General skin exam: no rashes or lesions noted and dry skin Neuro General: oriented to person, oriented to place and oriented to time Cranial nerves: Yes CN's II-XII intact bilaterally and Yes Equal, round and reactive pupils present Speech: No Abnormal speech present Gait exam (Neuro): Normal gait present Motor exam (neuro): 5/5 motor strength present throughout and no tremor noted Deep tendon reflexes (DTR's): Right triceps reflex intensity grade: 2+, Left triceps reflex intensity grade: 2+, Rt Biceps (C5, C6): 2+, Left biceps reflex intensity grade: 2+, Right brachioradialis reflex intensity grade: 2+, Left brachioradialis reflex intensity grade: 2+, Right patellar reflex intensity grade: 2+ and Left patellar reflex intensity grade: 2+ Extrem Right upper extremity: full ROM and Extremity exam: right hand (swollen and discolored knuckles with pain-skin lichenification) Left upper extremity: full ROM and hand (swollen and discolored knuckles with pain-skin lichenification) Right lower extremity: full ROM; no edema Left lower extremity: full ROM; no edema Psych Mental Status: mental status grossly normal Speech and movement: Normal speech and movement present Affect: normal affect Attitude: cooperative Thought process: Normal thought process present Results Reviewed Results Reviewed: Laboratory Tests 07/04/25 07/04/25 06:13 06:30 WBC 5.6 RBC 5.69 Hgb 16.5 Hct 48.4 MCV 85.1 MCH 29.0 MCHC 34.1 RDW 12.6 Plt Count 146 L D Sodium 140 Potassium 4.8 Chloride 105 Carbon Dioxide 27 Anion Gap 13 BUN 15 Creatinine 0.87 Estimated GFR > 60 Fasting Glucose 95 Estimat Average Glucose 105 Hemoglobin A1c % 5.3 Calcium 8.8 Total Bilirubin 0.8 AST 71 H ALT 87 H Alkaline Phosphatase 103 Total Protein 7.4 Albumin 4.5 Triglycerides 93 Cholesterol 146 LDL Cholesterol, Calc 93 HDL Cholesterol 35 L 25-OH Vitamin D Total 25.9 L TSH 0.69 Urine Color Yellow Urine Appearance Clear Urine pH 7.5 Ur Specific [place] 1.015 Urine Protein Negative Urine Glucose (UA) Negative Urine Ketones Negative Urine Blood Negative Urine Nitrite Negative Ur Leukocyte Esterase Negative Hepatitis A IgM Ab Nonreactive Hep Bs Antigen Negative Hep Bs Antibody NONREACTIVE Hep B Core Total Ab Nonreactive Hepatitis C Ab (EIA) Reactive H Coding Level of Care Code Est Pt Prev Care 40-64y(70251) Diagnoses Physical exam Z00.00 Anxiety and depression F41.9; F32.A Opioid dependence with opioid-induced disorder F11.29 Substance use status: with unspecified opioid-induced disorder Essential hypertension I10 Bradycardia R00.1 Dysphagia, unspecified type R13.10 Dysphagia type: unspecified Hepatitis C antibody positive in blood R76.8 Lichenified rash L28.0 Sleeping difficulty G47.9 Vitamin D deficiency E55.9 Dilated gallbladder K82.8 Elevated liver enzymes R74.8 Time Spent (min) 38 Assessment & Plan Assessment & Plan (1) Physical exam: Code(s): Z00.00 - Encounter for general adult medical examination without abnormal findings Category: Medical Plan: Preventative guidelines and recent labs were reviewed with the patient. He is due for colonoscopy and was referred to GI. Up-to-date on his dental evaluation, and eye exam was scheduled. (2) Anxiety and depression: Code(s): F41.9 - Anxiety disorder, unspecified; F32.A - Depression, unspecified Category: Medical Plan: The patient reports significant symptoms of depression and anxiety, including constant worry, racing thoughts, and insomnia, which are impacting his quality of life and contributing to his hypertension. A referral to a therapist and a psychiatrist is strongly recommended to address these issues comprehensively. The importance of specialist care was emphasized, especially considering his past negative experience with a psychiatric medication that caused suicidal ideation. Referral was placed and the patient has an appt on the of this month to see a therapist. (3) Opiate addiction: Comment: discussion had treatment options Suboxone counseling labs Code(s): F11.20 - Opioid dependence, uncomplicated Category: Medical Qualifiers: Substance use status: with unspecified opioid-induced disorder Qualified Code(s): F11.29 - Opioid dependence with unspecified opioid-induced disorder Plan: The patient reports that has been in remission for a while now. Encouraged a continuation of avoiding opioids or alike substances. (4) Essential hypertension: Code(s): I10 - Essential (primary) hypertension Category: Medical Plan: The patient's blood pressure is elevated at 174/80 mmHg. He was advised to resume taking his prescribed blood pressure medication, as he has been non-adherent. Reinforced low-salt diet We will continue to monitor (5) Bradycardia: Code(s): R00.1 - Bradycardia, unspecified Category: Medical Plan: Ongoing asymptomatic bradycardia. EKG completed on 06/18/2025 showed sinus Cory. Nonspecific T wave abnormality no longer evident in inferior leads or anterior lateral leads. Echocardiogram on 07/24/2025 showed normal left ventricle function with an EF of 66%. (6) Dysphagia: Code(s): R13.10 - Dysphagia, unspecified Category: Medical Qualifiers: Dysphagia type: unspecified Qualified Code(s): R13.10 - Dysphagia, unspecified Plan: The patient reports a several-year history of dysphagia, specifically choking on foods like rice, which is an atypical complaint for his age. A swallow evaluation has been ordered to investigate the cause of his symptoms. (7) Hepatitis C antibody positive in blood: Comment: October 2021 Check genotype,fibrosis score Code(s): R76.8 - Other specified abnormal immunological findings in serum Category: Medical Plan: The patient has chronic Hepatitis C, which will be co-managed by the GI specialist. Although there is a curative but expensive treatment available, management will be coordinated with GI. 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 No pain or warmth. Reports that this comes and goes and at times he shaves skin off then it grows back. He was referred to Dermatology and has an appointment with them tomorrow. (9) Sleeping difficulty: Code(s): G47.9 - Sleep disorder, unspecified Category: Medical Plan: The patient difficulty sleeping is related to him unable to turn his mind off. Discussed with the patient the benefits of psychotherapy. A referral was placed to further evaluate. (10) Vitamin D deficiency: Code(s): E55.9 - Vitamin D deficiency, unspecified Category: Medical Plan: Encouraged vitamin D3 OTC 2000 IU daily (11) Dilated gallbladder: Code(s): K82.8 - Other specified diseases of gallbladder Category: Medical Plan: An urgent referral will be placed to Gastroenterology (GI) for evaluation of a dilated gallbladder, which may be causing the patient's elevated liver enzymes. Further investigation, possibly with an ERCP, is needed to check for stones not seen on ultrasound (12) Elevated liver enzymes: Code(s): R74.8 - Abnormal levels of other serum enzymes Category: Medical Plan: Liver enzymes continue to be elevated History of hep C Viral load and genotype was ordered The patient has been referred to GI, pending evaluation Plan Plan Patient was informed and verbally consented to the use of an ambient scribe for clinic note documentation during this visit. 1. Dilated Gallbladder An urgent referral will be placed to Gastroenterology (GI) for evaluation of a dilated gallbladder, which may be causing the patient's elevated liver enzymes. Further investigation, possibly with an ERCP, is needed to check for stones not seen on ultrasound. 2. Hepatitis C The patient has chronic Hepatitis C, which will be co-managed by the GI specialist. Although there is a curative but expensive treatment available, management will be coordinated with GI. Will repeat the hepatitis viral load and liver panel in three months to monitor for inflammation and to support the GI referral. 3. Hypertension The patient's blood pressure is elevated at 174/80 mmHg. He was advised to resume taking his prescribed blood pressure medication, as he has been non-adherent. 4. Vitamin D Deficiency The patient has a low vitamin D level. Recommended starting [id number] Vitamin D3 2000 IU (50 mcg) daily to help with energy levels. Discussion Notes I discussed the lab results with the patient, including his slightly elevated liver enzymes, which are likely related to his dilated gallbladder. I explained the need for an urgent referral to a seal delivery vehicle officer for further evaluation and management, which may include a procedure like an ERCP. We reviewed his chronic Hepatitis C infection, and I informed him that treatment is available but can be expensive and is best managed by the GI specialist. I advised we will repeat his viral load test to aid the GI consult. We also discussed his elevated blood pressure and the importance of taking his medication as prescribed. I recommended he start taking Vitamin D3 2000 IU daily for his low levels, explaining it could help improve his energy. I also emphasized that he is due for a colonoscopy for colon cancer screening, which can be arranged by the GI specialist he will be seeing. I advised him to get the lab tests done before his GI appointment. Patient Instructions - You have a referral to see a specialist for your gallbladder and liver (Gastroenterology). Please ensure you schedule and attend this appointment. - Please start taking your blood pressure medication again every day as prescribed. Your blood pressure was high today. - Start taking [id number] Vitamin D3, 2000 IU (or 50 mcg) once daily. This can help with your energy levels. - You need to get new blood work done to recheck your liver and hepatitis C levels. - You are due for a colonoscopy to screen for colon cancer. You should discuss this with the seal delivery vehicle officer. - Continue to stay active and exercise regularly. Orders: Orders Hepatitis C Viral Load 08/14/25 R76.8 - Other specified abnormal immunological findings in serum Hepatitis C Genotype 08/14/25 R76.8 - Other specified abnormal immunological findings in serum Vitamin D 25-OH Total 3 Months E55.9 - Vitamin D deficiency, unspecified, F11.29 - Opioid dependence with unspecified opioid-induced disorder, F32.A - Depression, unspecified, F41.9 - Anxiety disorder, unspecified, I10 - Essential (primary) hypertension, R00.1 - Bradycardia, unspecified, R13.10 - Dysphagia, unspecified, R74.8 - Abnormal levels of other serum enzymes, R76.8 - Other specified abnormal immunological findings in serum UA CC w/rflx Micro + Cult 3 Months E55.9 - Vitamin D deficiency, unspecified, F11.29 - Opioid dependence with unspecified opioid-induced disorder, F32.A - Depression, unspecified, F41.9 - Anxiety disorder, unspecified, I10 - Essential (primary) hypertension, R00.1 - Bradycardia, unspecified, R13.10 - Dysphagia, unspecified, R74.8 - Abnormal levels of other serum enzymes, R76.8 - Other specified abnormal immunological findings in serum TSH reflex Free T4 3 Months E55.9 - Vitamin D deficiency, unspecified, F11.29 - Opioid dependence with unspecified opioid-induced disorder, F32.A - Depression, unspecified, F41.9 - Anxiety disorder, unspecified, I10 - Essential (primary) hypertension, R00.1 - Bradycardia, unspecified, R13.10 - Dysphagia, unspecified, R74.8 - Abnormal levels of other serum enzymes, R76.8 - Other specified abnormal immunological findings in serum Comprehensive [place]. Panel Fast 3 Months E55.9 - Vitamin D deficiency, unspecified, F11.29 - Opioid dependence with unspecified opioid-induced disorder, F32.A - Depression, unspecified, F41.9 - Anxiety disorder, unspecified, I10 - Essential (primary) hypertension, R00.1 - Bradycardia, unspecified, R13.10 - Dysphagia, unspecified, R74.8 - Abnormal levels of other serum enzymes, R76.8 - Other specified abnormal immunological findings in serum Complete Blood Count Auto Diff 3 Months E55.9 - Vitamin D deficiency, unspecified, F11.29 - Opioid dependence with unspecified opioid-induced disorder, F32.A - Depression, unspecified, F41.9 - Anxiety disorder, unspecified, I10 - Essential (primary) hypertension, R00.1 - Bradycardia, unspecified, R13.10 - Dysphagia, unspecified, R74.8 - Abnormal levels of other serum enzymes, R76.8 - Other specified abnormal immunological findings in serum Lipid Panel 3 Months E55.9 - Vitamin D deficiency, unspecified, F11.29 - Opioid dependence with unspecified opioid-induced disorder, F32.A - Depression, unspecified, F41.9 - Anxiety disorder, unspecified, I10 - Essential (primary) hypertension, R00.1 - Bradycardia, unspecified, R13.10 - Dysphagia, unspecified, R74.8 - Abnormal levels of other serum enzymes, R76.8 - Other specified abnormal immunological findings in serum
--- OUTSIDE RECORDS SUMMARY | 2025-08-14 20:08 | XMS_ITS | Clinical Summary ---
Author Organization [facility] ity Address [address] [place] [id number] Care Team Providers Care Supervisor Pipe Finishing Name Role Phone Unavailable Primary Care Provider [...]
== END 2025-08-14 17:29 | disposition home or self-care (01) ==
LOC: HO.HMCH 16:10
DX: Z00.00 Encounter for general adult medical examination without abnormal findings (principal); F41.9 Anxiety disorder, unspecified; F32.A Depression, unspecified; F11.29 Opioid dependence with unspecified opioid-induced disorder; I10 Essential (primary) hypertension; R00.1 Bradycardia, unspecified; R13.10 Dysphagia, unspecified; R76.89 Other specified abnormal immunological findings in serum; L28.0 Lichen simplex chronicus; G47.9 Sleep disorder, unspecified; E55.9 Vitamin D deficiency, unspecified; K82.8 Other specified diseases of gallbladder; R74.8 Abnormal levels of other serum enzymes

== ENCOUNTER → 2025-08-14 16:09 | Outpatient (BNVA) | payer OTHER, SELFPAY | DX: Z00.00 Encounter for general adult medical examination without abnormal findings (principal); F41.9 Anxiety disorder, unspecified; F32.A Depression, unspecified; F11.29 Opioid dependence with unspecified opioid-induced disorder; I10 Essential (primary) hypertension; R00.1 Bradycardia, unspecified; R13.10 Dysphagia, unspecified; R76.89 Other specified abnormal immunological findings in serum; L28.0 Lichen simplex chronicus; G47.9 Sleep disorder, unspecified; E55.9 Vitamin D deficiency, unspecified; K82.8 Other specified diseases of gallbladder; R74.8 Abnormal levels of other serum enzymes | CPT/HCPCS: 99396 ==